=== PATIENT | female | born 1955 | race Hispanic/Latino ===

== ENCOUNTER 2017-11-13 23:00 | Inpatient (IN) | payer BC ==
[2017-11-08 13:39] VITALS: BMI 28.7
[2017-11-14] MEDS: Lactated Ringer's 1,000 ML IV SCH ×2 (00:15→14:02)
[2017-11-14] MEDS: Dexamethasone 4 mg/1 ml IVP SCH ×2 (01:28→06:19)
[2017-11-14] MEDS: Levalbuterol 0.63 MG/3 ML Inhal Soln UD IH SCH ×5 (01:36→20:14)
[2017-11-14] MEDS: Pantoprazole 40 mg EC Tab PO SCH (06:20)
[2017-11-14] MEDS: Levothyroxine 100 MCG TAB PO SCH (06:20)
[2017-11-14 06:44] LABS: GRAN # 5.52 (1.4-6.5); GRAN % 85.3 % (50.0-68.0); HEMOGLOBIN 10.5 g/dL (12.0-16.0); LYMPH # 0.5 (1.2-3.4); LYMPH % 7.3 % (22.0-35.0); MEAN CELL VOLUME 98.8 fl (80.0-105.0); MEAN CORPUSCULAR HEMOGLOBIN 32.1 pg (25.0-35.0); MEAN CORPUSCULAR HGB CONC 32.5 g/dl (31.0-37.0); MEAN PLATELET VOLUME 8.8 fl (7.0-11.0); MONO # 0.5 (0.1-0.6); MONO % 7.4 % (1.0-6.0); RBC 3.27 10^6/uL (3.5-6.1); RED CELL DISTRIBUTION WIDTH 13.3 % (11.5-14.5); WHITE BLOOD COUNT 6.5 10^3/ul (4.5-11.0)
[2017-11-14 07:11] LABS: ALB/GLOB RATIO 1.4 (1.1-1.8); ALBUMIN 3.6 g/dL (3.0-4.8); ALT/SGPT 19 U/L (7-56); AST/SGOT 27 U/L (14-36); BLOOD UREA NITROGEN 23 mg/dL (7-21); GFR NON-AFRICAN AMERICAN > 60
[2017-11-14 07:12] LABS: BILIRUBIN,DIRECT 0.1 mg/dL (0.0-0.4)
--- NOTE | 2017-11-14 09:19 | CP.PCM.PN ---
Subjective - Date & Time of Evaluation Date of Evaluation: 11/14/17 Time of Evaluation: 09:30 - Subjective Subjective: Ms Claudio has metastatic cancer with brain metastases. She is currently on whole brain radiation therapy. She is currently in our department today for whole brain treatment. Objective - Vital Signs/Intake and Output Vital Signs (last 24 hours): Temp Pulse Resp BP Pulse Ox 98.7 F 70 18 143/85 11/14/17 02:08 11/14/17 02:08 11/14/17 02:08 11/14/17 02:08 - Medications Medications: Current Medications Acetaminophen (Tylenol 325mg Tab) 650 mg PO Q6H PRN PRN Reason: temp >=99.5 Acetaminophen (Tylenol 650 Mg Supp) 650 mg RC Q6H PRN PRN Reason: Fever >99.5 F Amiodarone HCl (Cordarone) 200 mg PO DAILY [facility]; Protocol Atorvastatin Calcium (Lipitor) 40 mg PO DIN [facility]; Protocol Benzonatate (Tessalon Perles) 200 mg PO TID [facility]; Protocol Cholecalciferol (Vitamin D) 2,000 intlu PO DAILY [facility]; Protocol Clonazepam (Klonopin) 0.5 mg PO DAILY PRN; Protocol PRN Reason: Anxiety Dexamethasone (Decadron Inj) 4 mg IVP Q6 [facility]; Protocol Stop: 11/15/17 06:01 Last Admin: 11/14/17 06:19 Dose: 4 mg Dexamethasone (Decadron Inj) 2 mg IVP Q6 [facility]; Protocol Stop: 11/17/17 12:01 Digoxin (Digoxin) 0.125 mg PO 1400 [facility] Docusate Sodium (Colace) 100 mg PO TID [facility]; Protocol Ergocalciferol (Drisdol 50,000 Intl Units Cap) 1 cap PO Q7D [facility]; Protocol Escitalopram Oxalate (Lexapro) 10 mg PO DAILY [facility]; Protocol Lactated Ringer's (Lactated Ringer's) 1,000 mls @ 75 mls/hr IV .[id number] [facility] Last Admin: 11/14/17 00:15 Dose: 75 mls/hr Levalbuterol HCl (Xopenex) 0.63 mg IH [id number] [facility]; Protocol Last Admin: 11/14/17 08:02 Dose: Not Given Levothyroxine Sodium (Synthroid) 100 mcg PO 0600 [facility]; Protocol Last Admin: 11/14/17 06:20 Dose: 100 mcg Metoprolol Succinate (Toprol Xl) 100 mg PO DAILY [facility]; Protocol Ondansetron HCl (Zofran Inj) 4 mg IVP Q4H PRN; Protocol PRN Reason: Nausea/Vomiting Pantoprazole Sodium (Protonix Ec Tab) 40 mg PO 0600 [facility]; Protocol Last Admin: 11/14/17 06:20 Dose: 40 mg Polyethylene Glycol (Miralax) 17 gm PO BID [facility]; Protocol Tiotropium [place] (Spiriva) 18 mcg IH DAILY [facility]; Protocol - Labs Labs: 11/14/17 06:39 11/14/17 06:39
[2017-11-14] MEDS ORDERED: Metoprolol Succinate 100 mg XL Tab PO SCH (10:00)
[2017-11-14] MEDS: Digoxin 125 mcg (0.125 mg) Tab PO SCH (14:00)
[2017-11-14] MEDS: POLYETHYLENE GLYCOL 3350 17 GM/Dose PACKET PO SCH ×2 (17:07→17:12)
--- NOTE | 2017-11-14 18:50 | CON ---
DATE: 11/14/2017 NEUROLOGY CONSULTATION CHIEF COMPLAINT: Mets to the brain. HISTORY OF PRESENT ILLNESS: This is a 62-year-old woman with past medical history of stage IV small cell carcinoma, diagnosed in 2017, status post 2 rounds [address] Dr[address] Christie, hypothyroidism, former tobacco use, chronic upper extremity tremor, atrial fibrillation, on Xarelto who presented to the hospital initially on medical side status post fall and found to have multiple metastatic enhancing brain lesions, largest one in the right frontal lobe measuring 4.5 cm with some mild vasogenic edema, status post Decadron high dose, now is on tapering dose, is on board Radiology Oncology for whole brain radiation for underlying metastatic cancer. 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 She is on Lexapro, it did help with her depression. She is on tapering dose of dexamethasone till now, where she is on 2 mg IV every 6, then off. PAST MEDICAL HISTORY: As above. SOCIAL HISTORY: Former smoker. No illicit drug use, smoking, or EtOH abuse. REVIEW OF SYSTEMS: Fourteen-point review of systems is negative except as per the HPI. FAMILY HISTORY: Noncontributory. ALLERGIES: NO KNOWN DRUG ALLERGIES. MEDICATIONS: Reviewed by nurses' reconciliation sheet. PHYSICAL EXAMINATION: VITAL SIGNS: Temperature 98.1, pulse rate 57, blood pressure 131/81, respiratory rate 20, oxygen saturation via nasal cannula. GENERAL: The patient is sitting up in bed, in no acute distress. HEENT: Atraumatic, normocephalic. PERRLA. Extraocular muscles intact. NECK: Supple. No JVD, no adenopathy noted. LUNGS: Clear to auscultation. No adventitious sounds. HEART: S1, S2. Normal rate and rhythm. No murmurs, rubs or gallops. ABDOMEN: Soft, nontender and nondistended. Bowel sounds are present. EXTREMITIES: No clubbing. No cyanosis. Peripheral pulses 2+ felt bilaterally. upper extremities. NEUROLOGIC: The patient is alert and oriented to person, place, month and year. Speech is fluent without any errors. Recall after 5 minutes is 0/3. Poor attention span. Slow thought process. Cranial nerves II through XII intact. Motor exam: Moves all extremities equally. Has essential-type tremor in terms of action tremor on left hand, worse than right. Sensory: Decreased light touch and pinprick up to the calves bilaterally. Decreased vibration of the toes. DTRs are 2+ throughout and 1 at both knees and ankles. Coordination: [id number] intact. No dysmetria noted. Gait is deferred for now. LABORATORY DATA: Sodium is 136, potassium 4.1, chloride 198, carbon dioxide of 30, BUN of 23, creatinine 0.8, random glucose of 99. ASSESSMENT AND PLAN: This is a 62-year-old woman with past medical history of stage IV small cell carcinoma diagnosed in 2017, status post 2 rounds [address] Christie, hypothyroidism, former tobacco user, chronic upper extremity tremor, atrial fibrillation, on Xarelto, who presented to the hospital with status post fall, found to have multiple metastatic brain lesions and is undergoing whole brain radiation therapy, status post IV Decadron for vasogenic edema, on a tapering dose IV Decadron 2 mg every 6 and will be off, has also poor balance and deconditioned for underlying cancer related and chemotherapy related peripheral neuropathy, which can causes her paresthesias in the extremities and poor balance. Her tremors are secondary to metastatic lesions in the brain and she is mildly depressed at this time. 1. Continue rehabilitation at for physical and occupational therapy and reconditioning. 2. Tapering dose of steroids 2 mg IV every 6 Decadron and off. 3. Continue Lexapro 10 mg p.o. daily for depression. 4. Continue current present medical management. Thank you for this consult. Juan Ramon Reyes MD
[2017-11-15] MEDS: Dexamethasone 4 mg/1 ml IVP SCH ×5 (00:09→23:16)
--- NOTE | 2017-11-15 02:49 | HP ---
HISTORY OF PRESENT ILLNESS: The patient is now admitted to Transitional Care Unit after the patient was treated on the acute site. The patient is seen lying in room 319. The patient's bed was initially assigned to 302, now she moved to 319. The patient is seen lying in the bed. Patient is alert, awake, responsive, in no distress. HISTORY OF PRESENT ILLNESS: The patient was seen in the emergency room in bed 3. Please refer to the detailed history and physical examination by the medical records library professor. The patient presented to the emergency room by [facility] [place]. The patient was found according to the triage note. The patient fell out of the bed and the patient complained of back pain. According to the ER physician evaluation, the patient was evaluated by ER staff. The patient states that she was feeling nervous and weak for the past 2 days. The patient was unable to stand up from a toilet seat today and was found on the floor by the son. There was no information about how long the patient was found on the floor. There is no information about whether the patient passed out or lost consciousness. According to the patient's son, the patient was also having episodic confusion. The patient kept calling the names of the people, which made no sense. The patient's vital signs, diagnostic data are reviewed. Please refer to the history and physical examination for further details. IMRESSION: 1. Questionable syncope versus drop attack versus fall, etiology undetermined. 2. History of lung carcinoma status post chemotherapy. 3. Multiple intracranial metastatic lesion with lesion in the right anterior frontal lobe with a focal hemorrhagic area. 4. History of paroxysmal atrial fibrillation. 5. History of hypertension. 6. History of atrial fibrillation. 7. Hypothyroidism. 8. History of hypovitaminosis D. 9. History of tremor. 10. History of dyslipidemia. 11. Normocytic anemia. 12. Xarelto-dependent atrial fibrillation. 13. History of right hydropneumothorax. 14. History of stage IV small cell lung carcinoma with postobstructive pneumonia and right upper lobe complete atelectasis. 15. History of paroxysmal atrial fibrillation. 16. Hyperlipidemia. 17. Pancytopenia. 18. Symptomatic right hydropneumothorax. 19. Mediastinal intrathoracic lymphadenopathy. 20. History of right malignant pleural effusion status post thoracentesis done in 2017. 21. Left upper chest Port-A-Cath placement. 22. History of hyperlipidemia, history of hypovitaminosis D, history of hypothyroidism, history of constipation. 23. Mediastinal lymphadenopathy with occlusion of the right mainstem bronchus. PLAN AT THIS TIME: The patient is seen in the emergency room. The patient has been ordered a stat MRI of the brain, chest x-ray, EKG. Lumbar spine, sacral spine x-rays ordered. At present, the patient will be admitted to telemetry with serial labs. Neurology, Neurosurgery and Hematology/Oncology and Radiation/Oncology consultation. The patient has been started on Colace 100 three times a day, Decadron 200 daily, IV Decadron 800 mg IV every 6, digoxin 0.125 daily, Drisdol 50,000 weekly, Klonopin 0.5 mg daily, Ringer's lactate 75 mL an hour, Lipitor 40 mg daily, MiraLax 17 g twice a day, Protonix 40 mg daily, Spiriva 18 mcg daily, Synthroid 100 mcg daily, Tessalon Perles 200 three times a day, Tylenol p.r.n. p.o. suppository, vitamin D3 2000 units daily, Xopenex 0.63 mg every 6 hours and Zofran 4 IV every 4 p.r.n. MRI of the brain pending. EKG ordered. Oxygen orders. Head of the bed 30 degrees, seizure precautions, neuro checks ordered. At present, in view of the patient's present condition and diagnosis and diagnostic test results, the patient prognosis is extremely guarded to poor. The patient's further management will be dependent upon the patient's clinical condition, hemodynamic status and as per the patient's response to therapeutic intervention and the patient's family was updated about the condition and diagnosis and need for hospitalization at length. All questions and concerned answered. PHYSICAL EXAMINATION: VITAL SIGNS: T-max 98.8; heart rate 50, 57, 70; blood pressure 151/75, 131/81, 143/85; respiration 20; O2 sat 93%-98%. HEENT: Head examination, normocephalic, atraumatic. HEENT examination shows positive alopecia. Pinkish pale conjunctivae. Anicteric sclerae. No oropharyngeal lesion. No neck rigidity. Dry oral mucosa. No oral thrush. CHEST: Kyphosis. Positive left upper chest Port-A-Cath. LUNGS: Examination shows positive rhonchi, right more than the left. CARDIOVASCULAR: Shows S1, S2, regular rhythm. Questionable soft systolic murmur left sternal border, right second intercostal space, left second intercostal space. ABDOMEN: Soft. Positive bowel sound. GENITALIA: Female. RECTAL: Examination is deferred. EXTREMITIES: Shows no pitting edema, no calf tenderness, no Homans' sign. NEUROLOGICALLY: The patient is alert, awake, responsive, is able to move upper and lower extremities without assistance. Gait examination is not tested. MUSCULOSKELETAL: Examination shows a body mass index of 29. DIAGNOSTICS: CBC; this is from 11/14, WBC 6.5, hemoglobin/hematocrit 10.5/32.3 platelets 236. Granulocytes 85. Sodium 136, potassium 4.1, chloride 98, CO2 of 20, anion gap 12, BUN 23, creatinine 0.8, GFR greater than 60, glucose 95, calcium 9, magnesium 2.1. LFTs are normal. ADMISSION IMPRESSION: 1. Deconditioning. 2. Gait dysfunction. 3. Stage IV small cell carcinoma of the lung with brain metastasis and mediastinal metastasis. 4. Encephalopathy with episodic confusion secondary to brain metastasis. 5. Hypertension. 6. Bradyarrhythmia and bradycardia. 7. Hypokalemia. 8. Decadron induced hyperglycemia. 9. Normocytic anemia. 10. Leukocytosis. 11. Xarelto-dependent atrial fibrillation. 12. Large right frontal hemorrhagic metastatic lesion. 13. Multiple ring-enhancing metastatic lesion throughout the brain including the right frontal lobe with surrounding edema and mass effect with compression of the right frontal horn and small amount of midline shift anteriorly with multiple ring-enhancing metastatic lesion in the right temporal lobe, right cerebellar hemisphere, right anterior frontal lobe and the right frontal convexity and left frontal white matter. 14. Mild oropharyngeal dysphagia. 15. Constipation. 16. Hypovitaminosis D. 17. Depression. 18. Hypothyroidism. 19. Hyperlipidemia. 20. History of tremors. 21. Episodic hallucination and confusion secondary to brain metastasis. 22. Mild oropharyngeal dysphagia. 1. Stage IV small cell carcinoma of the lung with brain metastasis, mediastinal metastasis. 2. Encephalopathy. 3. Episodic confusion. 4. Hypertension. 5. Bradyarrhythmia. 6. Hypokalemia. 7. Decadron-induced hyperglycemia. 8. Normocytic anemia. 9. Leukocytosis. 10. Xarelto-dependent atrial fibrillation. 11. Large right frontal metastatic lesion with hemorrhagic lesion. 12. Large right frontal hemorrhagic metastases lesion. 13. Multiple ring-enhancing metastatic lesion throughout the brain including the right frontal lobe with surrounding edema and mass effect with compression of the right frontal horn and small amount of midline shift anteriorly. 14. Multiple ring-enhancing metastatic lesion in the right temporal lobe, right cerebellar hemisphere, right anterior frontal lobe and the right frontal convexity and the left frontal white matter. 15. Mild oropharyngeal dysphagia. 16. Constipation. 17. Hypovitaminosis D. 18. Depression. 19. Hyperlipidemia. 20. Hypothyroidism. 21. History of tremors. 22. History of Xarelto-dependent atrial fibrillation. 23. Deconditioning. 1. Stage IV small cell lung carcinoma with brain metastasis, mediastinal metastasis and metastasis. 2. Encephalopathy. 3. Episodic confusion. 4. Hypertension. 6. Hypoxemia. 7. Atrial fibrillation. 8. Steroid-induced leukocytosis. 9 Normocytic anemia. 10. Hypokalemia. 11. Mild prerenal kidney injury. 12. Deconditioning. 13. Tremors. 14. Depression. 15. Stage IV small cell lung carcinoma, status post chemotherapy. 16. Hypothyroidism. 18. Former nicotine dependence. 19. Status post fall. 20. 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 21. Tremor secondary to metastatic brain lesion. 22. Depression. 23. Oropharyngeal dysphagia with [id number] risk for aspiration. 24. Episodic hallucination and confusion. 25. Constipation. 26. Atrial fibrillation. 27. Hypovitaminosis D. 28. Hyperlipidemia. 1. Stage IV small-cell lung carcinoma with brain metastasis. 2. Hypoxemia. 3. Hypertension. 4. Paroxysmal atrial fibrillation. 5. Leukocytosis with granulocytosis. 6. Anemia. 7. Xarelto-dependent atrial fibrillation. 8. Prerenal kidney injury. 9. Mild oropharyngeal dysphagia with low to moderate risk for aspiration due to oral residue with solids and globus sensation and multiple swallows. 10. Depression. 11. Constipation. 12. Hypovitaminosis D. 13. Anxiety. 14. Hyperlipidemia. 15. History of nicotine dependence. 16. Hypothyroidism. 1. Large right frontal lobe mass with small amount of hemorrhage along the inferior border with multiple ring-enhancing metastatic lesion throughout the brain parenchyma with largest lesion in the right frontal lobe with surrounding edema and mass effect with compression of the right frontal horn and small midline shift anteriorly. 2. Right middle lobe, right lower lobe soft tissue mass surrounding the right bronchus intermedius and right lower lobe bronchus with additional right lower lobe mass with increasing size. 3. Right lung apex cystic formation with emphysema. 4. Left lower lobe focal opacity with left lower lobe atelectasis and elevated left hemidiaphragm. 5. Cardiomegaly. 6. Increasing mediastinal lymphadenopathy with increasing subcarinal lymphadenopathy. 7. Increasing right mid and upper mediastinal lymphadenopathy. 8. Possible hepatic metastasis. 9. Constipation with fecal stasis. 10. Colonic diverticulosis. 11. Increasing right middle lobe, right lower lobe soft tissue mass with right lower lobe soft tissue mass increasing in size. 12. Worsening mediastinal and right lower lobe lymphadenopathy. 13. Stage IV small cell lung carcinoma with metastasis, presently on whole brain radiation. 14. Xarelto-dependent atrial fibrillation. 15. Multiple brain metastases with vasogenic edema. 16. Chronic anemia of malignancy. 17. Steroid-induced leukocytosis. 18. Stage IV small cell lung carcinoma with brain metastasis and lung, liver, and mediastinal metastases. 19. History of hypothyroidism. 20. History of nicotine dependence. 21. Chemotherapy versus malignancy related peripheral neuropathy with paresthesias of the extremities. 22. History of depression. 23. Depression. 1. Encephalopathy with episodic confusion. 2. Large right frontal lobe mass with small amount of hemorrhage along the inferior border. 3. Multiple ring-enhancing metastatic lesions throughout the brain parenchyma with largest lesion in the right frontal lobe with surrounding edema and mass effect with compression of the right frontal horn and small midline shift anteriorly. 4. Multiple ring-enhancing lesions seen in the right temporal lobe and right cerebral hemisphere and right anterior frontal lobe and right frontal lobe convexity with 2.5 cm lesion of the left frontal white matter. 5. Multiple -enhancing metastatic lesion with vasogenic edema. 6. 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 7. Questionable first coccygeal segment acute fracture. 8. Left sided Port-A-Cath placement. 9. Ectatic aorta with enlargement of the cardiomediastinal silhouette. 10. Degenerative joint disease of the spine with scoliosis. 11. Questionable abnormal EKG with questionable anterior ischemia. 12. Stage IV metastatic lung carcinoma to the brain. 13. Deconditioning. 14. Normocytic anemia. 15. History of hypothyroidism. 16. Gait dysfunction. 17. History of stage IV small cell lung carcinoma. 1. Questionable syncope versus drop attack versus fall, etiology undetermined. 2. History of lung carcinoma status post chemotherapy. 3. Multiple intracranial metastatic lesion with lesion in the right anterior frontal lobe with a focal hemorrhagic area. 4. History of paroxysmal atrial fibrillation. 5. History of hypertension. 6. History of atrial fibrillation. 7. Hypothyroidism. 8. History of hypovitaminosis D. 9. History of tremor. 10. History of dyslipidemia. 11. Normocytic anemia. 12. Xarelto-dependent atrial fibrillation. 13. History of right hydropneumothorax. 14. History of stage IV small cell lung carcinoma with postobstructive pneumonia and right upper lobe complete atelectasis. 15. History of paroxysmal atrial fibrillation. 16. Hyperlipidemia. 17. Pancytopenia. 18. Symptomatic right hydropneumothorax. 19. Mediastinal intrathoracic lymphadenopathy. 20. History of right malignant pleural effusion status post thoracentesis done in 2017. 21. Left upper chest Port-A-Cath placement. 22. History of hyperlipidemia, history of hypovitaminosis D, history of hypothyroidism, history of constipation. 23. Mediastinal lymphadenopathy with occlusion of the right mainstem bronchus. PLAN: At this time, the patient is admitted to Transitional Care Unit. The patient will be undergoing daily physical therapy, occupational therapy, ambulation therapy, gait training. The patient's consultation; Hematology/Oncology, Neurology and Radiation Oncology. The patient will also continue on radiation treatment as ordered by the Radiation Oncology group. The patient's current medications, Colace 100 three times a day, amiodarone 200 mg daily to be held for heart rate less than equal to 60 per minute, Decadron 4 mg IV every 6 hours till 11/15, then Decadron 2 mg IV every 6 hours from 11/15/2017 to 11/17/2017, digoxin 0.125 daily, Drisdol 50,000 units weekly, Klonopin 0.5 mg daily p.r.n., Lexapro 10 mg daily, Lipitor 40 mg daily, MiraLax 17 g twice a day, Protonix 40 mg daily, Spiriva 18 mcg daily, Synthroid 100 mcg daily, Tessalon Perles 200 three times a day, Toprol XL 100 mg daily, Tylenol 650 p.o. suppository every 6 p.r.n., vitamin D3 2000 [employer] Unit daily, Xopenex nebulizer 0.63 mg every 6 hours p.r.n., Zofran 4 mg IV every 4 p.r.n., incentive spirometry, oxygen 2 liters. ROEL stockings, SCDs, physical therapy, occupational therapy, ambulation therapy all ordered for the patient. The patient's overall prognosis is guarded. The patient is aware. The patient has been ordered out of bed to chair. ROEL stockings, SCDs all ordered. Daily weights ordered. Occupational therapy, physical therapy, speech therapy, swallow evaluation all ordered. The patient will continue on the Transitional Care Unit stay till approved. The patient will be followed by above subspecialty. Dictated and electronically signed, not read. Loki Keyes MD MTDD
[2017-11-15] MEDS: Levalbuterol 0.63 MG/3 ML Inhal Soln UD IH SCH ×4 (03:00→20:25)
[2017-11-15] MEDS: Pantoprazole 40 mg EC Tab PO SCH (06:31)
[2017-11-15] MEDS: Levothyroxine 100 MCG TAB PO SCH (06:31)
[2017-11-15] MEDS: Cholecalciferol 1,000 INTLU TAB PO SCH (10:33)
[2017-11-15] MEDS: Tiotropium 18 mcg Cap For Inhalation IH SCH (10:36)
[2017-11-15] MEDS: POLYETHYLENE GLYCOL 3350 17 GM/Dose PACKET PO SCH ×2 (10:36→17:18)
[2017-11-15] MEDS: Ergocalciferol 50,000 Intl Units Cap PO SCH (10:37)
--- NOTE | 2017-11-15 11:23 | CP.PCM.CON ---
History of Present Illness - History of Present Illness History of Present Illness: 62 year old female with a history of afib on anticoagulation, tremor, stage IV small cell lung cancer dx 02/2016, admitted s/p fall, found to have diffuse brain metastasis on whole brain radiotherapy, currently in TCU for rehab. She has been receiving whole brain radiotherapy with Dr. Matias and on steroids with with improvement in her symptoms. Imaging done does she progressive disease in the chest which is likely causing some dysphagia symptoms. She has done well overall. She did experience a thoracic recurrence of her cancer which required retreatment with carboplatin and etoposide that was completed in 08/2017. Past medical history: afib on anticoagulation, tremor, stage IV small cell lung cancer Past surgical history: Portacath Family history: Denies hematologic and oncologic problems Social history: Former smoker Allergies: NKA Review of systems: All remaining review of systems including HEENT, cardiovascu lar, respiratory, gastrointestinal, genitourinary, musculoskeletal, dermatologic, neurologic, and psychiatric are negative unless mentioned in the HPI. Past Patient History - Infectious Disease Hx of Infectious Diseases: None - Past Medical History & Family History Past Medical History?: Yes - Past Social History Smoking Status: Former Smoker - CARDIAC Hx Hypertension: Yes - PULMONARY Hx Chronic Obstructive Pulmonary Disease (COPD): Yes - NEUROLOGICAL Hx Neurological Disorder: No - HEENT Hx HEENT Problems: Yes (eyeglasses) - RENAL Hx Chronic Kidney Disease: No - ENDOCRINE/METABOLIC Hx Hypothyroidism: Yes - HEMATOLOGICAL/ONCOLOGICAL Hx Cancer: Yes (brain lesions) - INTEGUMENTARY Other/Comment: right mid back thoracenthesis dressing dry and intact - MUSCULOSKELETAL/RHEUMATOLOGICAL Hx Falls: Yes - GASTROINTESTINAL Hx Gastrointestinal Disorders: No - GENITOURINARY/GYNECOLOGICAL Hx Reproductive Disorders: No - PSYCHIATRIC Hx Depression: No Hx Emotional Abuse: No Hx Physical Abuse: No Hx Substance Use: No - SURGICAL HISTORY Other/Comment: Throat and Lung Bx. Right Chest Wall Port placement - ANESTHESIA Hx Anesthesia Reactions: No Hx Malignant Hyperthermia: No Meds Allergies/Adverse Reactions: Allergies Allergy/AdvReac Type Severity Reaction Status Date / Time No Known Allergies Allergy Verified 04/01/16 11:52 - Medications Medications: Current Medications Acetaminophen (Tylenol 325mg Tab) 650 mg PO Q6H PRN PRN Reason: temp >=99.5 Acetaminophen (Tylenol 650 Mg Supp) 650 mg RC Q6H PRN PRN Reason: Fever >99.5 F Amiodarone HCl (Cordarone) 200 mg PO DAILY JEROME; Protocol Atorvastatin Calcium (Lipitor) 40 mg PO DIN JEROME; Protocol Benzonatate (Tessalon Perles) 200 mg PO TID JEROME; Protocol Last Admin: 11/15/17 10:34 Dose: 200 mg Cholecalciferol (Vitamin D) 2,000 intlu PO DAILY JEROME; Protocol Last Admin: 11/15/17 10:33 Dose: 2,000 intlu Clonazepam (Klonopin) 0.5 mg PO DAILY PRN; Protocol PRN Reason: Anxiety Dexamethasone (Decadron Inj) 2 mg IVP Q6 JEROME; Protocol Stop: 11/17/17 12:01 Digoxin (Digoxin) 0.125 mg PO 1400 JEROME Last Admin: 11/14/17 14:00 Dose: 0.125 mg Docusate Sodium (Colace) 100 mg PO TID JEROME; Protocol Last Admin: 11/15/17 10:31 Dose: 100 mg Ergocalciferol (Drisdol 50,000 Intl Units Cap) 1 cap PO Q7D JEROME; Protocol Last Admin: 11/15/17 10:37 Dose: 1 cap Escitalopram Oxalate (Lexapro) 10 mg PO DAILY JEROME; Protocol Last Admin: 11/15/17 10:37 Dose: 10 mg Levalbuterol HCl (Xopenex) 0.63 mg IH [id number] JEROME; Protocol Last Admin: 11/15/17 07:05 Dose: 0.63 mg Levothyroxine Sodium (Synthroid) 100 mcg PO 0600 JEROME; Protocol Last Admin: 11/15/17 06:31 Dose: 100 mcg Metoprolol Succinate (Toprol Xl) 100 mg PO DAILY JEROME; Protocol Last Admin: 11/15/17 10:35 Dose: Not Given Ondansetron HCl (Zofran Inj) 4 mg IVP Q4H PRN; Protocol PRN Reason: Nausea/Vomiting Pantoprazole Sodium (Protonix Ec Tab) 40 mg PO 0600 JEROME; Protocol Last Admin: 11/15/17 06:31 Dose: 40 mg Polyethylene Glycol (Miralax) 17 gm PO BID JEROME; Protocol Last Admin: 11/15/17 10:36 Dose: 17 gm Tiotropium [place] (Spiriva) 18 mcg IH DAILY JEROME; Protocol Last Admin: 11/15/17 10:36 Dose: 18 mcg Physical Exam - Head Exam Head Exam: ATRAUMATIC - Eye Exam Eye Exam: Normal appearance - ENT Exam ENT Exam: Mucous Membranes Dry - Respiratory Exam Respiratory Exam: NORMAL BREATHING PATTERN - Cardiovascular Exam Cardiovascular Exam: +S1, +S2 - GI/Abdominal Exam GI & Abdominal Exam: Normal Bowel Sounds Results - Vital Signs Recent Vital Signs: Last Vital Signs Temp 98.8 F 11/14/17 16:00 Pulse 54 L 11/15/17 10:35 Resp 18 11/14/17 16:00 BP 115/78 11/15/17 10:35 Pulse Ox 93 L 11/14/17 16:00 - Labs Result Diagrams: 11/14/17 06:39 11/14/17 06:39 Labs: Laboratory Results - last 24 hr 11/14/17 11/14/17 11/15/17 16:55 21:14 05:15 POC Glucose (mg/dL) 95 100 107 Assessment & Plan (1) Brain metastases Assessment and Plan: secondary to small cell lung cancer on whole brain radiotherapy steroids doing well Status: Acute (2) Anemia Assessment and Plan: chronic disease from malignancy Status: Acute (3) Small cell lung cancer Assessment and Plan: stage IV brain mets on radiation progressive disease in the chest outpatient chemotherapy Thank you for this interesting consult. Status: Acute
[2017-11-15] MEDS: Digoxin 125 mcg (0.125 mg) Tab PO SCH (14:23)
[2017-11-15 14:32] VITALS: PULSE 60
--- NOTE | 2017-11-15 19:10 | PN ---
DATE: 11/15/2017 SUBJECTIVE: The patient was seen in the gym room of the third floor on the TCU. The patient is doing steady stationary bike and the patient doing walking with ambulatory and the walker. The patient is alert, awake, and responsive. Overnight nurse's notes were reviewed. No adverse events documented. The patient was found to be alert, awake, and oriented without any adverse events. PHYSICAL EXAMINATION: VITAL SIGNS: T-max 99; heart rate 58, 54. The patient has been having bradycardia with heart rate 54, in mid 50s. Blood pressure 126/74, respirations 20, and O2 sat 95%. GENERAL: The patient is seen sitting up in the stationary bike. HEENT: Head: Normocephalic, atraumatic. Positive alopecia noted. Pinkish conjunctivae. Anicteric sclerae. No oropharyngeal lesion. NECK: No neck rigidity. No oral thrush noted. CHEST: Kyphosis. LUNGS: Show positive rhonchi, right more than the left. CARDIOVASCULAR: S1 and S2, regular rhythm. Questionable soft systolic murmur in the left second intercostal space, left sternal border. ABDOMEN: Soft. Positive bowel sound. GENITALIA: Female. RECTAL: Deferred. EXTREMITIES: Show no pitting edema, no calf tenderness, no Homans sign. NEUROLOGIC: The patient is alert, awake, responsive, is able to move upper and lower extremity without assistance. Gait examination is as per the physical therapy. PSYCHIATRIC: Positive for anxiety and depression. The patient seen by speech therapist today. There were no signs of dysphasia noted. IMPRESSION: 1. Bradycardia. 2. Deconditioning. 3. Gait dysfunction. 4. Stage IV small cell lung carcinoma with multiple ring-enhancing brain metastases with vasogenic edema and mild midline shift. 5. Normocytic anemia. 6. Granulocytosis. 7. Steroid Decadron-induced hyperglycemia. 8. Prerenal kidney injury. 9. History of Xarelto-dependent atrial fibrillation. 10. Stage IV small cell lung carcinoma with mediastinal adenopathy and intrathoracic progressive disease. 11. History of hypothyroidism. 12. Status post chemotherapy. 13. Former tobacco user. 14. Chronic upper extremity tremors. 15. Possible depression. 16. Constipation. 17. Hypovitaminosis D. 18. History of nicotine dependence. 1. Deconditioning. 2. Gait dysfunction. 3. Stage IV small cell carcinoma of the lung with brain metastasis and mediastinal metastasis. 4. Encephalopathy with episodic confusion secondary to brain metastasis. 5. Hypertension. 6. Bradyarrhythmia and bradycardia. 7. Hypokalemia. 8. Decadron induced hyperglycemia. 9. Normocytic anemia. 10. Leukocytosis. 11. Xarelto-dependent atrial fibrillation. 12. Large right frontal hemorrhagic metastatic lesion. 13. Multiple ring-enhancing metastatic lesion throughout the brain including the right frontal lobe with surrounding edema and mass effect with compression of the right frontal horn and small amount of midline shift anteriorly with multiple ring-enhancing metastatic lesion in the right temporal lobe, right cerebellar hemisphere, right anterior frontal lobe and the right frontal convexity and left frontal white matter. 14. Mild oropharyngeal dysphagia. 15. Constipation. 16. Hypovitaminosis D. 17. Depression. 18. Hypothyroidism. 19. Hyperlipidemia. 20. History of tremors. 21. Episodic hallucination and confusion secondary to brain metastasis. 22. Mild oropharyngeal dysphagia. 1. Stage IV small cell carcinoma of the lung with brain metastasis, mediastinal metastasis. 2. Encephalopathy. 3. Episodic confusion. 4. Hypertension. 5. Bradyarrhythmia. 6. Hypokalemia. 7. Decadron-induced hyperglycemia. 8. Normocytic anemia. 9. Leukocytosis. 10. Xarelto-dependent atrial fibrillation. 11. Large right frontal metastatic lesion with hemorrhagic lesion. 12. Large right frontal hemorrhagic metastases lesion. 13. Multiple ring-enhancing metastatic lesion throughout the brain including the right frontal lobe with surrounding edema and mass effect with compression of the right frontal horn and small amount of midline shift anteriorly. 14. Multiple ring-enhancing metastatic lesion in the right temporal lobe, right cerebellar hemisphere, right anterior frontal lobe and the right frontal convexity and the left frontal white matter. 15. Mild oropharyngeal dysphagia. 16. Constipation. 17. Hypovitaminosis D. 18. Depression. 19. Hyperlipidemia. 20. Hypothyroidism. 21. History of tremors. 22. History of Xarelto-dependent atrial fibrillation. 23. Deconditioning. 1. Stage IV small cell lung carcinoma with brain metastasis, mediastinal metastasis and metastasis. 2. Encephalopathy. 3. Episodic confusion. 4. Hypertension. 6. Hypoxemia. 7. Atrial fibrillation. 8. Steroid-induced leukocytosis. 9 Normocytic anemia. 10. Hypokalemia. 11. Mild prerenal kidney injury. 12. Deconditioning. 13. Tremors. 14. Depression. 15. Stage IV small cell lung carcinoma, status post chemotherapy. 16. Hypothyroidism. 18. Former nicotine dependence. 19. Status post fall. 20. 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 21. Tremor secondary to metastatic brain lesion. 22. Depression. 23. Oropharyngeal dysphagia with [id number] risk for aspiration. 24. Episodic hallucination and confusion. 25. Constipation. 26. Atrial fibrillation. 27. Hypovitaminosis D. 28. Hyperlipidemia. 1. Stage IV small-cell lung carcinoma with brain metastasis. 2. Hypoxemia. 3. Hypertension. 4. Paroxysmal atrial fibrillation. 5. Leukocytosis with granulocytosis. 6. Anemia. 7. Xarelto-dependent atrial fibrillation. 8. Prerenal kidney injury. 9. Mild oropharyngeal dysphagia with low to moderate risk for aspiration due to oral residue with solids and globus sensation and multiple swallows. 10. Depression. 11. Constipation. 12. Hypovitaminosis D. 13. Anxiety. 14. Hyperlipidemia. 15. History of nicotine dependence. 16. Hypothyroidism. 1. Large right frontal lobe mass with small amount of hemorrhage along the inferior border with multiple ring-enhancing metastatic lesion throughout the brain parenchyma with largest lesion in the right frontal lobe with surrounding edema and mass effect with compression of the right frontal horn and small midline shift anteriorly. 2. Right middle lobe, right lower lobe soft tissue mass surrounding the right bronchus intermedius and right lower lobe bronchus with additional right lower lobe mass with increasing size. 3. Right lung apex cystic formation with emphysema. 4. Left lower lobe focal opacity with left lower lobe atelectasis and elevated left hemidiaphragm. 5. Cardiomegaly. 6. Increasing mediastinal lymphadenopathy with increasing subcarinal lymphadenopathy. 7. Increasing right mid and upper mediastinal lymphadenopathy. 8. Possible hepatic metastasis. 9. Constipation with fecal stasis. 10. Colonic diverticulosis. 11. Increasing right middle lobe, right lower lobe soft tissue mass with right lower lobe soft tissue mass increasing in size. 12. Worsening mediastinal and right lower lobe lymphadenopathy. 13. Stage IV small cell lung carcinoma with metastasis, presently on whole brain radiation. 14. Xarelto-dependent atrial fibrillation. 15. Multiple brain metastases with vasogenic edema. 16. Chronic anemia of malignancy. 17. Steroid-induced leukocytosis. 18. Stage IV small cell lung carcinoma with brain metastasis and lung, liver, and mediastinal metastases. 19. History of hypothyroidism. 20. History of nicotine dependence. 21. Chemotherapy versus malignancy related peripheral neuropathy with paresthesias of the extremities. 22. History of depression. 23. Depression. 1. Encephalopathy with episodic confusion. 2. Large right frontal lobe mass with small amount of hemorrhage along the inferior border. 3. Multiple ring-enhancing metastatic lesions throughout the brain parenchyma with largest lesion in the right frontal lobe with surrounding edema and mass effect with compression of the right frontal horn and small midline shift anteriorly. 4. Multiple ring-enhancing lesions seen in the right temporal lobe and right cerebral hemisphere and right anterior frontal lobe and right frontal lobe convexity with 2.5 cm lesion of the left frontal white matter. 5. Multiple -enhancing metastatic lesion with vasogenic edema. 6. 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 7. Questionable first coccygeal segment acute fracture. 8. Left sided Port-A-Cath placement. 9. Ectatic aorta with enlargement of the cardiomediastinal silhouette. 10. Degenerative joint disease of the spine with scoliosis. 11. Questionable abnormal EKG with questionable anterior ischemia. 12. Stage IV metastatic lung carcinoma to the brain. 13. Deconditioning. 14. Normocytic anemia. 15. History of hypothyroidism. 16. Gait dysfunction. 17. History of stage IV small cell lung carcinoma. 1. Questionable syncope versus drop attack versus fall, etiology undetermined. 2. History of lung carcinoma status post chemotherapy. 3. Multiple intracranial metastatic lesion with lesion in the right anterior frontal lobe with a focal hemorrhagic area. 4. History of paroxysmal atrial fibrillation. 5. History of hypertension. 6. History of atrial fibrillation. 7. Hypothyroidism. 8. History of hypovitaminosis D. 9. History of tremor. 10. History of dyslipidemia. 11. Normocytic anemia. 12. Xarelto-dependent atrial fibrillation. 13. History of right hydropneumothorax. 14. History of stage IV small cell lung carcinoma with postobstructive pneumonia and right upper lobe complete atelectasis. 15. History of paroxysmal atrial fibrillation. 16. Hyperlipidemia. 17. Pancytopenia. 18. Symptomatic right hydropneumothorax. 19. Mediastinal intrathoracic lymphadenopathy. 20. History of right malignant pleural effusion status post thoracentesis done in 2017. 21. Left upper chest Port-A-Cath placement. 22. History of hyperlipidemia, history of hypovitaminosis D, history of hypothyroidism, history of constipation. 23. Mediastinal lymphadenopathy with occlusion of the right mainstem bronchus. PLAN: At this time, the patient's digoxin was discontinued. The patient's last echocardiogram was reviewed. Ejection fraction was normal. The patient has metoprolol, Toprol XL is decreased to 50 mg daily. The patient will be continued on Colace 100 three times a day, amiodarone 200 mg daily with holding parameters, Decadron 2 mg IV every 6 hours which has been started today, Drisdol 50,000 units weekly, Klonopin 0.5 mg daily p.r.n., Lexapro 10 mg daily, Lipitor 40 mg daily, MiraLax 17 g twice a day, Protonix 40 mg daily, Spiriva 18 mcg daily, Synthroid 100 mcg daily, Tessalon Perles 200 three times a day, Toprol XL decreased to 50 mg daily, Tylenol p.r.n., vitamin D3 of 2000 international units daily, Xopenex nebulizer 0.63 mg every 6 hours, Zofran 4 mg IV every 4 hours p.r.n., oxygen therapy, incentive spirometry. Neuro checks. Out of bed to chair. Seizure precautions. Physical therapy, occupational therapy to be continued while the patient is on transitional care unit. At present, the patient will be requested to be seen and evaluated for resumption of patient's Xarelto which the patient has been taking for atrial fibrillation. We will request reevaluation by Neurology and Hematology/Oncology regarding resumption of patient's Xarelto which the patient is supposed to be taken for atrial fibrillation. The patient is supposed to be taking Xarelto for atrial fibrillation, which needs to be resumed if cleared by Hematology/Oncology and Neurology. At present, the patient will be continued on above therapeutic intervention. Dictated and electronically signed, not read. Loki Keyes MD [email or web address]
[2017-11-16] MEDS: Levalbuterol 0.63 MG/3 ML Inhal Soln UD IH SCH ×4 (03:30→19:38)
[2017-11-16] MEDS: Dexamethasone 4 mg/1 ml IVP SCH ×3 (05:39→17:59)
[2017-11-16] MEDS: Pantoprazole 40 mg EC Tab PO SCH (05:40)
[2017-11-16] MEDS: Levothyroxine 100 MCG TAB PO SCH (05:40)
[2017-11-16] MEDS ORDERED: Magnesium Citrate Oral SOL (300 ml) PO ONE (08:40)
[2017-11-16] MEDS: POLYETHYLENE GLYCOL 3350 17 GM/Dose PACKET PO SCH ×2 (09:35→18:00)
[2017-11-16] MEDS: Tiotropium 18 mcg Cap For Inhalation IH SCH (09:36)
[2017-11-16] MEDS: Metoprolol Succinate 50 mg XL Tab PO SCH (09:36)
[2017-11-16] MEDS: Cholecalciferol 1,000 INTLU TAB PO SCH (09:37)
--- NOTE | 2017-11-16 11:41 | PN ---
DATE: 11/16/2017 SUBJECTIVE: The patient is seen in room 319, bed 1. The patient just returned from radiation therapy. The patient is alert, awake, responsive. The patient is seen sitting up in the chair. PHYSICAL EXAMINATION: VITAL SIGNS: T-max 98.5, heart rate 58, blood pressure 107/62, respiration 20, O2 sat 97%. HEENT: Head: Normocephalic, atraumatic. HEENT examination shows pinkish pale conjunctivae. Anicteric sclerae. Dry oral mucosa. No oral thrush noted. Positive kyphosis noted. CARDIOVASCULAR: S1 and S2, regular rhythm. Questionable soft systolic murmur, left sternal border, right second intercostal space, left second intercostal space. LUNGS: Shows occasional rhonchi, right more than the left. ABDOMEN: Soft. Positive bowel sound. GENITALIA: Female. RECTAL: Deferred. EXTREMITIES: Shows no pitting edema, no calf tenderness, No Homans' sign. MUSCULOSKELETAL: Shows a body mass index of 29.3. NEUROLOGIC: Cranial nerves II-XII grossly intact. VASCULAR: Palpable pulses of the upper and lower extremity. The patient is complaining of constipation for 3 days. IMPRESSION: 1. Deconditioning. 2. Gait dysfunction. 3. Upper extremity tremors. 4. 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 5. Constipation. 6. Depression. 7. Xarelto dependent atrial fibrillation. 8. Hypovitaminosis D. 9. Hyperlipidemia. 10. Hypothyroidism. 1. Bradycardia. 2. Deconditioning. 3. Gait dysfunction. 4. Stage IV small cell lung carcinoma with multiple ring-enhancing brain metastases with vasogenic edema and mild midline shift. 5. Normocytic anemia. 6. Granulocytosis. 7. Steroid Decadron-induced hyperglycemia. 8. Prerenal kidney injury. 9. History of Xarelto-dependent atrial fibrillation. 10. Stage IV small cell lung carcinoma with mediastinal adenopathy and intrathoracic progressive disease. 11. History of hypothyroidism. 12. Status post chemotherapy. 13. Former tobacco user. 14. Chronic upper extremity tremors. 15. Possible depression. 16. Constipation. 17. Hypovitaminosis D. 18. History of nicotine dependence. 1. Deconditioning. 2. Gait dysfunction. 3. Stage IV small cell carcinoma of the lung with brain metastasis and mediastinal metastasis. 4. Encephalopathy with episodic confusion secondary to brain metastasis. 5. Hypertension. 6. Bradyarrhythmia and bradycardia. 7. Hypokalemia. 8. Decadron induced hyperglycemia. 9. Normocytic anemia. 10. Leukocytosis. 11. Xarelto-dependent atrial fibrillation. 12. Large right frontal hemorrhagic metastatic lesion. 13. Multiple ring-enhancing metastatic lesion throughout the brain including the right frontal lobe with surrounding edema and mass effect with compression of the right frontal horn and small amount of midline shift anteriorly with multiple ring-enhancing metastatic lesion in the right temporal lobe, right cerebellar hemisphere, right anterior frontal lobe and the right frontal convexity and left frontal white matter. 14. Mild oropharyngeal dysphagia. 15. Constipation. 16. Hypovitaminosis D. 17. Depression. 18. Hypothyroidism. 19. Hyperlipidemia. 20. History of tremors. 21. Episodic hallucination and confusion secondary to brain metastasis. 22. Mild oropharyngeal dysphagia. 1. Stage IV small cell carcinoma of the lung with brain metastasis, mediastinal metastasis. 2. Encephalopathy. 3. Episodic confusion. 4. Hypertension. 5. Bradyarrhythmia. 6. Hypokalemia. 7. Decadron-induced hyperglycemia. 8. Normocytic anemia. 9. Leukocytosis. 10. Xarelto-dependent atrial fibrillation. 11. Large right frontal metastatic lesion with hemorrhagic lesion. 12. Large right frontal hemorrhagic metastases lesion. 13. Multiple ring-enhancing metastatic lesion throughout the brain including the right frontal lobe with surrounding edema and mass effect with compression of the right frontal horn and small amount of midline shift anteriorly. 14. Multiple ring-enhancing metastatic lesion in the right temporal lobe, right cerebellar hemisphere, right anterior frontal lobe and the right frontal convexity and the left frontal white matter. 15. Mild oropharyngeal dysphagia. 16. Constipation. 17. Hypovitaminosis D. 18. Depression. 19. Hyperlipidemia. 20. Hypothyroidism. 21. History of tremors. 22. History of Xarelto-dependent atrial fibrillation. 23. Deconditioning. 1. Stage IV small cell lung carcinoma with brain metastasis, mediastinal metastasis and metastasis. 2. Encephalopathy. 3. Episodic confusion. 4. Hypertension. 6. Hypoxemia. 7. Atrial fibrillation. 8. Steroid-induced leukocytosis. 9 Normocytic anemia. 10. Hypokalemia. 11. Mild prerenal kidney injury. 12. Deconditioning. 13. Tremors. 14. Depression. 15. Stage IV small cell lung carcinoma, status post chemotherapy. 16. Hypothyroidism. 18. Former nicotine dependence. 19. Status post fall. 20. 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 21. Tremor secondary to metastatic brain lesion. 22. Depression. 23. Oropharyngeal dysphagia with [id number] risk for aspiration. 24. Episodic hallucination and confusion. 25. Constipation. 26. Atrial fibrillation. 27. Hypovitaminosis D. 28. Hyperlipidemia. 1. Stage IV small-cell lung carcinoma with brain metastasis. 2. Hypoxemia. 3. Hypertension. 4. Paroxysmal atrial fibrillation. 5. Leukocytosis with granulocytosis. 6. Anemia. 7. Xarelto-dependent atrial fibrillation. 8. Prerenal kidney injury. 9. Mild oropharyngeal dysphagia with low to moderate risk for aspiration due to oral residue with solids and globus sensation and multiple swallows. 10. Depression. 11. Constipation. 12. Hypovitaminosis D. 13. Anxiety. 14. Hyperlipidemia. 15. History of nicotine dependence. 16. Hypothyroidism. 1. Large right frontal lobe mass with small amount of hemorrhage along the inferior border with multiple ring-enhancing metastatic lesion throughout the brain parenchyma with largest lesion in the right frontal lobe with surrounding edema and mass effect with compression of the right frontal horn and small midline shift anteriorly. 2. Right middle lobe, right lower lobe soft tissue mass surrounding the right bronchus intermedius and right lower lobe bronchus with additional right lower lobe mass with increasing size. 3. Right lung apex cystic formation with emphysema. 4. Left lower lobe focal opacity with left lower lobe atelectasis and elevated left hemidiaphragm. 5. Cardiomegaly. 6. Increasing mediastinal lymphadenopathy with increasing subcarinal lymphadenopathy. 7. Increasing right mid and upper mediastinal lymphadenopathy. 8. Possible hepatic metastasis. 9. Constipation with fecal stasis. 10. Colonic diverticulosis. 11. Increasing right middle lobe, right lower lobe soft tissue mass with right lower lobe soft tissue mass increasing in size. 12. Worsening mediastinal and right lower lobe lymphadenopathy. 13. Stage IV small cell lung carcinoma with metastasis, presently on whole brain radiation. 14. Xarelto-dependent atrial fibrillation. 15. Multiple brain metastases with vasogenic edema. 16. Chronic anemia of malignancy. 17. Steroid-induced leukocytosis. 18. Stage IV small cell lung carcinoma with brain metastasis and lung, liver, and mediastinal metastases. 19. History of hypothyroidism. 20. History of nicotine dependence. 21. Chemotherapy versus malignancy related peripheral neuropathy with paresthesias of the extremities. 22. History of depression. 23. Depression. 1. Encephalopathy with episodic confusion. 2. Large right frontal lobe mass with small amount of hemorrhage along the inferior border. 3. Multiple ring-enhancing metastatic lesions throughout the brain parenchyma with largest lesion in the right frontal lobe with surrounding edema and mass effect with compression of the right frontal horn and small midline shift anteriorly. 4. Multiple ring-enhancing lesions seen in the right temporal lobe and right cerebral hemisphere and right anterior frontal lobe and right frontal lobe convexity with 2.5 cm lesion of the left frontal white matter. 5. Multiple -enhancing metastatic lesion with vasogenic edema. 6. 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 7. Questionable first coccygeal segment acute fracture. 8. Left sided Port-A-Cath placement. 9. Ectatic aorta with enlargement of the cardiomediastinal silhouette. 10. Degenerative joint disease of the spine with scoliosis. 11. Questionable abnormal EKG with questionable anterior ischemia. 12. Stage IV metastatic lung carcinoma to the brain. 13. Deconditioning. 14. Normocytic anemia. 15. History of hypothyroidism. 16. Gait dysfunction. 17. History of stage IV small cell lung carcinoma. 1. Questionable syncope versus drop attack versus fall, etiology undetermined. 2. History of lung carcinoma status post chemotherapy. 3. Multiple intracranial metastatic lesion with lesion in the right anterior frontal lobe with a focal hemorrhagic area. 4. History of paroxysmal atrial fibrillation. 5. History of hypertension. 6. History of atrial fibrillation. 7. Hypothyroidism. 8. History of hypovitaminosis D. 9. History of tremor. 10. History of dyslipidemia. 11. Normocytic anemia. 12. Xarelto-dependent atrial fibrillation. 13. History of right hydropneumothorax. 14. History of stage IV small cell lung carcinoma with postobstructive pneumonia and right upper lobe complete atelectasis. 15. History of paroxysmal atrial fibrillation. 16. Hyperlipidemia. 17. Pancytopenia. 18. Symptomatic right hydropneumothorax. 19. Mediastinal intrathoracic lymphadenopathy. 20. History of right malignant pleural effusion status post thoracentesis done in 2017. 21. Left upper chest Port-A-Cath placement. 22. History of hyperlipidemia, history of hypovitaminosis D, history of hypothyroidism, history of constipation. 23. Mediastinal lymphadenopathy with occlusion of the right mainstem bronchus. PLAN AT THIS TIME: The patient's resumption of anticoagulation has been referred to Hematology, Oncology and Neurology for resumption of Xarelto for atrial fibrillation. The patient has been ordered following medications. The patient is given magnesium citrate 300 mg p.o. x1, Colace 100 three times a day, amiodarone 200 mg daily, Decadron 2 mg IV every 6 hours as ordered by Neurology, Drisdol 50,000 weekly, Klonopin 0.5 mg daily p.r.n., Lexapro 10 mg daily, Lipitor 40 mg daily, MiraLax 17 g twice a day, Protonix 40 mg daily, Spiriva 18 mcg daily, Synthroid 100 mcg daily, Tessalon Perles 200 three times a day, Toprol-XL 50 mg daily, Tylenol 650 every 6 p.r.n., vitamin D3 2000 [employer] Unit daily, Xopenex nebulizer 0.63 mg every 6 hours, Zofran 4 mg IV every 4 p.r.n., incentive spirometry, oxygen, neuro checks, seizure precaution, out of bed, SCDs, ROEL stocking, physical therapy, occupational therapy all ordered. The patient will continue on the Transitional Care Unit with continuation of the physical therapy, occupational therapy, ambulation therapy, gait training. Patient's case referred to [facility] for further extension of TCU stay if possible and if approved by the patient's insurance. Dictated and electronically signed, not read. Lkoi Keyes MD [facility]
[2017-11-17] MEDS: Levalbuterol 0.63 MG/3 ML Inhal Soln UD IH SCH ×4 (01:31→20:33)
[2017-11-17] MEDS: Dexamethasone 4 mg/1 ml IVP SCH ×3 (05:14→13:28)
[2017-11-17] MEDS: Pantoprazole 40 mg EC Tab PO SCH (05:14)
[2017-11-17] MEDS: Levothyroxine 100 MCG TAB PO SCH (05:14)
[2017-11-17] MEDS: POLYETHYLENE GLYCOL 3350 17 GM/Dose PACKET PO SCH ×2 (09:40→17:10)
[2017-11-17] MEDS: Tiotropium 18 mcg Cap For Inhalation IH SCH (09:40)
[2017-11-17] MEDS: Metoprolol Succinate 50 mg XL Tab PO SCH (09:41)
[2017-11-17] MEDS: Cholecalciferol 1,000 INTLU TAB PO SCH (09:42)
[2017-11-17 11:25] LABS: GRAN # 7.71 (1.4-6.5); GRAN % 86.2 % (50.0-68.0); HEMOGLOBIN 11.4 g/dL (12.0-16.0); LYMPH % 10.6 % (22.0-35.0); MEAN CELL VOLUME 98.6 fl (80.0-105.0); MEAN CORPUSCULAR HEMOGLOBIN 32.4 pg (25.0-35.0); MEAN CORPUSCULAR HGB CONC 32.9 g/dl (31.0-37.0); MEAN PLATELET VOLUME 8.6 fl (7.0-11.0); MONO # 0.3 (0.1-0.6); MONO % 3.2 % (1.0-6.0); RBC 3.52 10^6/uL (3.5-6.1); RED CELL DISTRIBUTION WIDTH 13.4 % (11.5-14.5)
[2017-11-17 11:45] LABS: ALB/GLOB RATIO 1.1 (1.1-1.8); ALBUMIN 2.7 g/dL (3.0-4.8); ALT/SGPT 31 U/L (7-56); AST/SGOT 16 U/L (14-36); BILIRUBIN,DIRECT 0.2 mg/dL (0.0-0.4); BLOOD UREA NITROGEN 21 mg/dL (7-21); CALCIUM 6.5 mg/dL (8.4-10.5); GFR NON-AFRICAN AMERICAN > 60
[2017-11-17] MEDS: Potassium Chloride 20 mEq ER Tab PO SCH ×2 (13:29→17:09)
[2017-11-17] MEDS: Calcium-Vit D 250 mg-125 Units Tab UD PO SCH (13:30)
--- NOTE | 2017-11-17 13:40 | PN ---
DATE: 11/17/2017 SUBJECTIVE: The patient is seen in room 319, bed 1. The patient was seen with the patient's nurse. According to the patient's nurse, the patient has been complaining of dysuria during urination. The patient also complains of burning urine. The patient is seen lying in the bed. The patient denies any fever or chills. PHYSICAL EXAMINATION: VITAL SIGNS: T-max 99; heart rate 61, 64, which has improved; blood pressure 122/76; respirations 20; O2 sat 94%. HEENT: Head: Normocephalic, atraumatic. Pinkish pale conjunctivae. Anicteric sclerae. Positive alopecia noted. No oral thrush noted. NECK: No neck rigidity. CHEST: Kyphosis. Positive rhonchi noted in the upper lung ellis, right more than the left. CARDIOVASCULAR: S1 and S2, regular rhythm. ABDOMEN: Soft. Positive bowel sound. No hepatosplenomegaly noted. No suprapubic tenderness noted. No costovertebral angle tenderness. GENITALIA: Female. RECTAL: Deferred. EXTREMITIES: Show no pitting edema, no calf tenderness, no Homans sign. NEUROLOGIC: The patient is alert, awake, responsive. Nurse's notes were reviewed from overnight. As mentioned, the patient's nurse's notes also report that the patient had foul urine. IMPRESSION: 1. Dysuria with frequency and foul urine, questionable etiology with possible urinary tract infection in an immunocompromised patient. 2. Deconditioning. 3. Gait dysfunction. 4. Status post bradycardia. 5. Hypoxemia. 6. 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 7. Normocytic anemia. 8. Upper extremity tremors. 9. Granulocytosis. 10. Status post fall. 11. Depression. 12. Anemia of chronic disease secondary to malignancy. 13. Urinary tract infection. 1. Deconditioning. 2. Gait dysfunction. 3. Upper extremity tremors. 4. 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 5. Constipation. 6. Depression. 7. Xarelto dependent atrial fibrillation. 8. Hypovitaminosis D. 9. Hyperlipidemia. 10. Hypothyroidism. 1. Bradycardia. 2. Deconditioning. 3. Gait dysfunction. 4. Stage IV small cell lung carcinoma with multiple ring-enhancing brain metastases with vasogenic edema and mild midline shift. 5. Normocytic anemia. 6. Granulocytosis. 7. Steroid Decadron-induced hyperglycemia. 8. Prerenal kidney injury. 9. History of Xarelto-dependent atrial fibrillation. 10. Stage IV small cell lung carcinoma with mediastinal adenopathy and intrathoracic progressive disease. 11. History of hypothyroidism. 12. Status post chemotherapy. 13. Former tobacco user. 14. Chronic upper extremity tremors. 15. Possible depression. 16. Constipation. 17. Hypovitaminosis D. 18. History of nicotine dependence. 1. Deconditioning. 2. Gait dysfunction. 3. Stage IV small cell carcinoma of the lung with brain metastasis and mediastinal metastasis. 4. Encephalopathy with episodic confusion secondary to brain metastasis. 5. Hypertension. 6. Bradyarrhythmia and bradycardia. 7. Hypokalemia. 8. Decadron induced hyperglycemia. 9. Normocytic anemia. 10. Leukocytosis. 11. Xarelto-dependent atrial fibrillation. 12. Large right frontal hemorrhagic metastatic lesion. 13. Multiple ring-enhancing metastatic lesion throughout the brain including the right frontal lobe with surrounding edema and mass effect with compression of the right frontal horn and small amount of midline shift anteriorly with multiple ring-enhancing metastatic lesion in the right temporal lobe, right cerebellar hemisphere, right anterior frontal lobe and the right frontal convexity and left frontal white matter. 14. Mild oropharyngeal dysphagia. 15. Constipation. 16. Hypovitaminosis D. 17. Depression. 18. Hypothyroidism. 19. Hyperlipidemia. 20. History of tremors. 21. Episodic hallucination and confusion secondary to brain metastasis. 22. Mild oropharyngeal dysphagia. 1. Stage IV small cell carcinoma of the lung with brain metastasis, mediastinal metastasis. 2. Encephalopathy. 3. Episodic confusion. 4. Hypertension. 5. Bradyarrhythmia. 6. Hypokalemia. 7. Decadron-induced hyperglycemia. 8. Normocytic anemia. 9. Leukocytosis. 10. Xarelto-dependent atrial fibrillation. 11. Large right frontal metastatic lesion with hemorrhagic lesion. 12. Large right frontal hemorrhagic metastases lesion. 13. Multiple ring-enhancing metastatic lesion throughout the brain including the right frontal lobe with surrounding edema and mass effect with compression of the right frontal horn and small amount of midline shift anteriorly. 14. Multiple ring-enhancing metastatic lesion in the right temporal lobe, right cerebellar hemisphere, right anterior frontal lobe and the right frontal convexity and the left frontal white matter. 15. Mild oropharyngeal dysphagia. 16. Constipation. 17. Hypovitaminosis D. 18. Depression. 19. Hyperlipidemia. 20. Hypothyroidism. 21. History of tremors. 22. History of Xarelto-dependent atrial fibrillation. 23. Deconditioning. 1. Stage IV small cell lung carcinoma with brain metastasis, mediastinal metastasis and metastasis. 2. Encephalopathy. 3. Episodic confusion. 4. Hypertension. 6. Hypoxemia. 7. Atrial fibrillation. 8. Steroid-induced leukocytosis. 9 Normocytic anemia. 10. Hypokalemia. 11. Mild prerenal kidney injury. 12. Deconditioning. 13. Tremors. 14. Depression. 15. Stage IV small cell lung carcinoma, status post chemotherapy. 16. Hypothyroidism. 18. Former nicotine dependence. 19. Status post fall. 20. 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 21. Tremor secondary to metastatic brain lesion. 22. Depression. 23. Oropharyngeal dysphagia with [id number] risk for aspiration. 24. Episodic hallucination and confusion. 25. Constipation. 26. Atrial fibrillation. 27. Hypovitaminosis D. 28. Hyperlipidemia. 1. Stage IV small-cell lung carcinoma with brain metastasis. 2. Hypoxemia. 3. Hypertension. 4. Paroxysmal atrial fibrillation. 5. Leukocytosis with granulocytosis. 6. Anemia. 7. Xarelto-dependent atrial fibrillation. 8. Prerenal kidney injury. 9. Mild oropharyngeal dysphagia with low to moderate risk for aspiration due to oral residue with solids and globus sensation and multiple swallows. 10. Depression. 11. Constipation. 12. Hypovitaminosis D. 13. Anxiety. 14. Hyperlipidemia. 15. History of nicotine dependence. 16. Hypothyroidism. 1. Large right frontal lobe mass with small amount of hemorrhage along the inferior border with multiple ring-enhancing metastatic lesion throughout the brain parenchyma with largest lesion in the right frontal lobe with surrounding edema and mass effect with compression of the right frontal horn and small midline shift anteriorly. 2. Right middle lobe, right lower lobe soft tissue mass surrounding the right bronchus intermedius and right lower lobe bronchus with additional right lower lobe mass with increasing size. 3. Right lung apex cystic formation with emphysema. 4. Left lower lobe focal opacity with left lower lobe atelectasis and elevated left hemidiaphragm. 5. Cardiomegaly. 6. Increasing mediastinal lymphadenopathy with increasing subcarinal lymphadenopathy. 7. Increasing right mid and upper mediastinal lymphadenopathy. 8. Possible hepatic metastasis. 9. Constipation with fecal stasis. 10. Colonic diverticulosis. 11. Increasing right middle lobe, right lower lobe soft tissue mass with right lower lobe soft tissue mass increasing in size. 12. Worsening mediastinal and right lower lobe lymphadenopathy. 13. Stage IV small cell lung carcinoma with metastasis, presently on whole brain radiation. 14. Xarelto-dependent atrial fibrillation. 15. Multiple brain metastases with vasogenic edema. 16. Chronic anemia of malignancy. 17. Steroid-induced leukocytosis. 18. Stage IV small cell lung carcinoma with brain metastasis and lung, liver, and mediastinal metastases. 19. History of hypothyroidism. 20. History of nicotine dependence. 21. Chemotherapy versus malignancy related peripheral neuropathy with paresthesias of the extremities. 22. History of depression. 23. Depression. 1. Encephalopathy with episodic confusion. 2. Large right frontal lobe mass with small amount of hemorrhage along the inferior border. 3. Multiple ring-enhancing metastatic lesions throughout the brain parenchyma with largest lesion in the right frontal lobe with surrounding edema and mass effect with compression of the right frontal horn and small midline shift anteriorly. 4. Multiple ring-enhancing lesions seen in the right temporal lobe and right cerebral hemisphere and right anterior frontal lobe and right frontal lobe convexity with 2.5 cm lesion of the left frontal white matter. 5. Multiple -enhancing metastatic lesion with vasogenic edema. 6. 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 7. Questionable first coccygeal segment acute fracture. 8. Left sided Port-A-Cath placement. 9. Ectatic aorta with enlargement of the cardiomediastinal silhouette. 10. Degenerative joint disease of the spine with scoliosis. 11. Questionable abnormal EKG with questionable anterior ischemia. 12. Stage IV metastatic lung carcinoma to the brain. 13. Deconditioning. 14. Normocytic anemia. 15. History of hypothyroidism. 16. Gait dysfunction. 17. History of stage IV small cell lung carcinoma. 1. Questionable syncope versus drop attack versus fall, etiology undetermined. 2. History of lung carcinoma status post chemotherapy. 3. Multiple intracranial metastatic lesion with lesion in the right anterior frontal lobe with a focal hemorrhagic area. 4. History of paroxysmal atrial fibrillation. 5. History of hypertension. 6. History of atrial fibrillation. 7. Hypothyroidism. 8. History of hypovitaminosis D. 9. History of tremor. 10. History of dyslipidemia. 11. Normocytic anemia. 12. Xarelto-dependent atrial fibrillation. 13. History of right hydropneumothorax. 14. History of stage IV small cell lung carcinoma with postobstructive pneumonia and right upper lobe complete atelectasis. 15. History of paroxysmal atrial fibrillation. 16. Hyperlipidemia. 17. Pancytopenia. 18. Symptomatic right hydropneumothorax. 19. Mediastinal intrathoracic lymphadenopathy. 20. History of right malignant pleural effusion status post thoracentesis done in 2017. 21. Left upper chest Port-A-Cath placement. 22. History of hyperlipidemia, history of hypovitaminosis D, history of hypothyroidism, history of constipation. 23. Mediastinal lymphadenopathy with occlusion of the right mainstem bronchus. PLAN: At this time, the patient has been ordered Cipro 250 twice a day. The patient is on Colace 100 three times a day, amiodarone 200 mg daily, Decadron 2 mg IV every 6 hours tapering doses, Drisdol 50,000 weekly, Klonopin 0.5 daily p.r.n., Lexapro 10 mg daily, Lipitor 40 mg daily, MiraLax 17 g twice a day, Protonix 40 mg daily, Pyridium 100 three times a day for 3 days ordered. The patient is on Spiriva 18 mcg daily, Synthroid 100 mcg daily, Tessalon Perles 200 three times a day, Toprol XL 50 mg daily, Tylenol 650 every 6 hours p.r.n., vitamin D3 2000 international units daily, Xopenex nebulizer 0.63 mg every 6 hours, Zofran 4 mg IV every 4 hours p.r.n. At present, the patient will be continued on the above therapeutic intervention with continuation of the transitional care unit stay with continuation of the daily physical therapy, gait training, occupational therapy, ambulation therapy. The patient's further management will be dependent upon the patient's clinical condition, the patient's hemodynamic status, diagnostic data, recommendation by all the physicians. Dictated and electronically signed, not read. Loki Keyes MD [facility] # [id number] JORY
--- NOTE | 2017-11-17 23:46 | CP.PCM.PN ---
Subjective - Date & Time of Evaluation Date of Evaluation: 11/16/17 Time of Evaluation: 13:00 - Subjective Subjective: No complaints. Objective - Vital Signs/Intake and Output Vital Signs (last 24 hours): Temp Pulse Resp BP Pulse Ox 98.2 F 67 19 160/90 H 96 11/17/17 15:57 11/17/17 16:45 11/17/17 15:57 11/17/17 15:57 11/17/17 16:45 Intake and Output: 11/17/17 11/18/17 18:59 06:59 Intake Total 420 Balance 420 - Medications Medications: Current Medications Acetaminophen (Tylenol 325mg Tab) 650 mg PO Q6H PRN PRN Reason: temp >=99.5 Acetaminophen (Tylenol 650 Mg Supp) 650 mg RC Q6H PRN PRN Reason: Fever >99.5 F Amiodarone HCl (Cordarone) 200 mg PO DAILY JEROME; Protocol Last Admin: 11/17/17 09:37 Dose: 200 mg Atorvastatin Calcium (Lipitor) 40 mg PO DIN JEROME; Protocol Last Admin: 11/17/17 17:09 Dose: 40 mg Benzonatate (Tessalon Perles) 200 mg PO TID JEROME; Protocol Last Admin: 11/17/17 17:10 Dose: 200 mg Calcium/Vitamin D (Oscal-D 250 Mg-125 Units Tab) 1 tab PO DAILY JEROME Stop: 11/19/17 10:01 Last Admin: 11/17/17 13:30 Dose: 1 tab Cholecalciferol (Vitamin D) 2,000 intlu PO DAILY JEROME; Protocol Last Admin: 11/17/17 09:42 Dose: 2,000 intlu Ciprofloxacin (Cipro) 250 mg PO Q12 JEROME; Protocol Stop: 11/18/17 10:01 Last Admin: 11/17/17 21:11 Dose: 250 mg Clonazepam (Klonopin) 0.5 mg PO DAILY PRN; Protocol PRN Reason: Anxiety Docusate Sodium (Colace) 100 mg PO TID JEROME; Protocol Last Admin: 11/17/17 17:09 Dose: 100 mg Ergocalciferol (Drisdol 50,000 Intl Units Cap) 1 cap PO Q7D JEROME; Protocol Last Admin: 11/15/17 10:37 Dose: 1 cap Escitalopram Oxalate (Lexapro) 10 mg PO DAILY JEROME; Protocol Last Admin: 11/17/17 09:40 Dose: 10 mg Levalbuterol HCl (Xopenex) 0.63 mg IH [id number] JEROME; Protocol Last Admin: 11/17/17 20:33 Dose: 0.63 mg Levothyroxine Sodium (Synthroid) 100 mcg PO 0600 JEROME; Protocol Last Admin: 11/17/17 05:14 Dose: 100 mcg Metoprolol Succinate (Toprol Xl) 50 mg PO DAILY JEROME; Protocol Last Admin: 11/17/17 09:41 Dose: 50 mg Ondansetron HCl (Zofran Inj) 4 mg IVP Q4H PRN; Protocol PRN Reason: Nausea/Vomiting Pantoprazole Sodium (Protonix Ec Tab) 40 mg PO 0600 JEROME; Protocol Last Admin: 11/17/17 05:14 Dose: 40 mg Phenazopyridine HCl (Pyridium) 100 mg PO PC [facility] Stop: 11/20/17 10:01 Last Admin: 11/17/17 17:10 Dose: 100 mg Polyethylene Glycol (Miralax) 17 gm PO BID JEROME; Protocol Last Admin: 11/17/17 17:10 Dose: 17 gm Tiotropium [place] (Spiriva) 18 mcg IH DAILY JEROME; Protocol Last Admin: 11/17/17 09:40 Dose: 18 mcg - Labs Labs: 11/17/17 11:20 11/17/17 11:20 - Head Exam Head Exam: ATRAUMATIC - Eye Exam Eye Exam: Normal appearance - ENT Exam ENT Exam: Mucous Membranes Dry - Respiratory Exam Respiratory Exam: NORMAL BREATHING PATTERN - Cardiovascular Exam Cardiovascular Exam: +S1, +S2 - GI/Abdominal Exam GI & Abdominal Exam: Normal Bowel Sounds Assessment and Plan (1) Brain metastases Assessment & Plan: secondary to small cell lung cancer on whole brain radiotherapy steroids doing well Status: Acute (2) Anemia Assessment & Plan: chronic disease from malignancy Status: Acute (3) Small cell lung cancer Assessment & Plan: brain mets on radiation progressive disease in the chest outpatient chemotherapy Status: Acute
[2017-11-18] MEDS: Levalbuterol 0.63 MG/3 ML Inhal Soln UD IH SCH ×4 (01:55→21:40)
[2017-11-18] MEDS: Levothyroxine 100 MCG TAB PO SCH (06:13)
[2017-11-18] MEDS: Pantoprazole 40 mg EC Tab PO SCH (06:13)
[2017-11-18 08:23] LABS: ALB/GLOB RATIO 1.4 (1.1-1.8); ALBUMIN 3.5 g/dL (3.0-4.8); ALT/SGPT 27 U/L (7-56); AST/SGOT 28 U/L (14-36); BLOOD UREA NITROGEN 28 mg/dL (7-21); CALCIUM 8.5 mg/dL (8.4-10.5); GFR NON-AFRICAN AMERICAN > 60
--- NOTE | 2017-11-18 09:19 | PN ---
DATE: 11/18/2017 SUBJECTIVE: The patient is seen lying in the bed in room 319, bed 1. Overnight nurse's notes were reviewed. PHYSICAL EXAMINATION: VITAL SIGNS: T-max 98.8; pulse 62, 67; blood pressure 122/76, 154/91; respirations 19; O2 sat 93-96%. HEENT: Head examination normocephalic, atraumatic. HEENT examination shows pinkish conjunctivae. Positive alopecia. No oropharyngeal lesion. No oral thrush. CHEST: Kyphosis. Positive upper chest Port-A-Cath. LUNGS: Shows occasional rhonchi, right posterior lung field. CARDIOVASCULAR: S1, S2, regular rhythm. Questionable soft systolic murmur, left sternal border, left second intercostal space. ABDOMEN: Nontender. No hepatosplenomegaly noted. No costovertebral angle tenderness. No suprapubic right or left lower quadrant tenderness noted. No rebound tenderness. GENITALIA: Female. RECTAL: Deferred. EXTREMITY: Shows no pitting edema, no calf tenderness, no Homans' sign. MUSCULOSKELETAL: Shows a body mass index of 29. PSYCHIATRIC: Positive for upper extremity tremors and depression. DIAGNOSTICS: On 11/18/2017, sodium 133, potassium has come up to 4.3, chloride 99, CO2 of 28, anion gap 10, BUN 28, creatinine 0.7, GFR greater than 60, glucose 87, calcium 8.5, phosphorus 3.1, magnesium 2. LFTs are normal. IMPRESSION AND PLAN: 1. Dysuria and frequency, etiology undetermined, questionable urinary tract infection. 2. Hypoxemia. 3. Normocytic anemia. 4. Granulocytosis. 5. Hypokalemia. 6. Mild prerenal kidney injury. 7. Hypoalbuminemia. 8. Mild protein malnutrition and mild hypoalbuminemia. 9. Deconditioning. 10. Gait dysfunction. 11. Episodic hallucination and confusion secondary to brain metastasis. 12. Mild oropharyngeal dysphagia (resolved). 13. Deconditioning. 14. Gait dysfunction. 15. Atrial fibrillation. 16. Hypovitaminosis D. 17. Anxiety. 18. Upper extremity tremors. 19. Depression. 20. Hyperlipidemia. 21. Constipation. 22. Hypothyroidism. 23. Bradycardia (resolved). 1. Dysuria with frequency and foul urine, questionable etiology with possible urinary tract infection in an immunocompromised patient. 2. Deconditioning. 3. Gait dysfunction. 4. Status post bradycardia. 5. Hypoxemia. 6. 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 7. Normocytic anemia. 8. Upper extremity tremors. 9. Granulocytosis. 10. Status post fall. 11. Depression. 12. Anemia of chronic disease secondary to malignancy. 13. Urinary tract infection. 1. Deconditioning. 2. Gait dysfunction. 3. Upper extremity tremors. 4. 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 5. Constipation. 6. Depression. 7. Xarelto dependent atrial fibrillation. 8. Hypovitaminosis D. 9. Hyperlipidemia. 10. Hypothyroidism. 1. Bradycardia. 2. Deconditioning. 3. Gait dysfunction. 4. Stage IV small cell lung carcinoma with multiple ring-enhancing brain metastases with vasogenic edema and mild midline shift. 5. Normocytic anemia. 6. Granulocytosis. 7. Steroid Decadron-induced hyperglycemia. 8. Prerenal kidney injury. 9. History of Xarelto-dependent atrial fibrillation. 10. Stage IV small cell lung carcinoma with mediastinal adenopathy and intrathoracic progressive disease. 11. History of hypothyroidism. 12. Status post chemotherapy. 13. Former tobacco user. 14. Chronic upper extremity tremors. 15. Possible depression. 16. Constipation. 17. Hypovitaminosis D. 18. History of nicotine dependence. 1. Deconditioning. 2. Gait dysfunction. 3. Stage IV small cell carcinoma of the lung with brain metastasis and mediastinal metastasis. 4. Encephalopathy with episodic confusion secondary to brain metastasis. 5. Hypertension. 6. Bradyarrhythmia and bradycardia. 7. Hypokalemia. 8. Decadron induced hyperglycemia. 9. Normocytic anemia. 10. Leukocytosis. 11. Xarelto-dependent atrial fibrillation. 12. Large right frontal hemorrhagic metastatic lesion. 13. Multiple ring-enhancing metastatic lesion throughout the brain including the right frontal lobe with surrounding edema and mass effect with compression of the right frontal horn and small amount of midline shift anteriorly with multiple ring-enhancing metastatic lesion in the right temporal lobe, right cerebellar hemisphere, right anterior frontal lobe and the right frontal convexity and left frontal white matter. 14. Mild oropharyngeal dysphagia. 15. Constipation. 16. Hypovitaminosis D. 17. Depression. 18. Hypothyroidism. 19. Hyperlipidemia. 20. History of tremors. 21. Episodic hallucination and confusion secondary to brain metastasis. 22. Mild oropharyngeal dysphagia. 1. Stage IV small cell carcinoma of the lung with brain metastasis, mediastinal metastasis. 2. Encephalopathy. 3. Episodic confusion. 4. Hypertension. 5. Bradyarrhythmia. 6. Hypokalemia. 7. Decadron-induced hyperglycemia. 8. Normocytic anemia. 9. Leukocytosis. 10. Xarelto-dependent atrial fibrillation. 11. Large right frontal metastatic lesion with hemorrhagic lesion. 12. Large right frontal hemorrhagic metastases lesion. 13. Multiple ring-enhancing metastatic lesion throughout the brain including the right frontal lobe with surrounding edema and mass effect with compression of the right frontal horn and small amount of midline shift anteriorly. 14. Multiple ring-enhancing metastatic lesion in the right temporal lobe, right cerebellar hemisphere, right anterior frontal lobe and the right frontal convexity and the left frontal white matter. 15. Mild oropharyngeal dysphagia. 16. Constipation. 17. Hypovitaminosis D. 18. Depression. 19. Hyperlipidemia. 20. Hypothyroidism. 21. History of tremors. 22. History of Xarelto-dependent atrial fibrillation. 23. Deconditioning. 1. Stage IV small cell lung carcinoma with brain metastasis, mediastinal metastasis and metastasis. 2. Encephalopathy. 3. Episodic confusion. 4. Hypertension. 6. Hypoxemia. 7. Atrial fibrillation. 8. Steroid-induced leukocytosis. 9 Normocytic anemia. 10. Hypokalemia. 11. Mild prerenal kidney injury. 12. Deconditioning. 13. Tremors. 14. Depression. 15. Stage IV small cell lung carcinoma, status post chemotherapy. 16. Hypothyroidism. 18. Former nicotine dependence. 19. Status post fall. 20. 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 21. Tremor secondary to metastatic brain lesion. 22. Depression. 23. Oropharyngeal dysphagia with [id number] risk for aspiration. 24. Episodic hallucination and confusion. 25. Constipation. 26. Atrial fibrillation. 27. Hypovitaminosis D. 28. Hyperlipidemia. 1. Stage IV small-cell lung carcinoma with brain metastasis. 2. Hypoxemia. 3. Hypertension. 4. Paroxysmal atrial fibrillation. 5. Leukocytosis with granulocytosis. 6. Anemia. 7. Xarelto-dependent atrial fibrillation. 8. Prerenal kidney injury. 9. Mild oropharyngeal dysphagia with low to moderate risk for aspiration due to oral residue with solids and globus sensation and multiple swallows. 10. Depression. 11. Constipation. 12. Hypovitaminosis D. 13. Anxiety. 14. Hyperlipidemia. 15. History of nicotine dependence. 16. Hypothyroidism. 1. Large right frontal lobe mass with small amount of hemorrhage along the inferior border with multiple ring-enhancing metastatic lesion throughout the brain parenchyma with largest lesion in the right frontal lobe with surrounding edema and mass effect with compression of the right frontal horn and small midline shift anteriorly. 2. Right middle lobe, right lower lobe soft tissue mass surrounding the right bronchus intermedius and right lower lobe bronchus with additional right lower lobe mass with increasing size. 3. Right lung apex cystic formation with emphysema. 4. Left lower lobe focal opacity with left lower lobe atelectasis and elevated left hemidiaphragm. 5. Cardiomegaly. 6. Increasing mediastinal lymphadenopathy with increasing subcarinal lymphadenopathy. 7. Increasing right mid and upper mediastinal lymphadenopathy. 8. Possible hepatic metastasis. 9. Constipation with fecal stasis. 10. Colonic diverticulosis. 11. Increasing right middle lobe, right lower lobe soft tissue mass with right lower lobe soft tissue mass increasing in size. 12. Worsening mediastinal and right lower lobe lymphadenopathy. 13. Stage IV small cell lung carcinoma with metastasis, presently on whole brain radiation. 14. Xarelto-dependent atrial fibrillation. 15. Multiple brain metastases with vasogenic edema. 16. Chronic anemia of malignancy. 17. Steroid-induced leukocytosis. 18. Stage IV small cell lung carcinoma with brain metastasis and lung, liver, and mediastinal metastases. 19. History of hypothyroidism. 20. History of nicotine dependence. 21. Chemotherapy versus malignancy related peripheral neuropathy with paresthesias of the extremities. 22. History of depression. 23. Depression. 1. Encephalopathy with episodic confusion. 2. Large right frontal lobe mass with small amount of hemorrhage along the inferior border. 3. Multiple ring-enhancing metastatic lesions throughout the brain parenchyma with largest lesion in the right frontal lobe with surrounding edema and mass effect with compression of the right frontal horn and small midline shift anteriorly. 4. Multiple ring-enhancing lesions seen in the right temporal lobe and right cerebral hemisphere and right anterior frontal lobe and right frontal lobe convexity with 2.5 cm lesion of the left frontal white matter. 5. Multiple -enhancing metastatic lesion with vasogenic edema. 6. 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 7. Questionable first coccygeal segment acute fracture. 8. Left sided Port-A-Cath placement. 9. Ectatic aorta with enlargement of the cardiomediastinal silhouette. 10. Degenerative joint disease of the spine with scoliosis. 11. Questionable abnormal EKG with questionable anterior ischemia. 12. Stage IV metastatic lung carcinoma to the brain. 13. Deconditioning. 14. Normocytic anemia. 15. History of hypothyroidism. 16. Gait dysfunction. 17. History of stage IV small cell lung carcinoma. 1. Questionable syncope versus drop attack versus fall, etiology undetermined. 2. History of lung carcinoma status post chemotherapy. 3. Multiple intracranial metastatic lesion with lesion in the right anterior frontal lobe with a focal hemorrhagic area. 4. History of paroxysmal atrial fibrillation. 5. History of hypertension. 6. History of atrial fibrillation. 7. Hypothyroidism. 8. History of hypovitaminosis D. 9. History of tremor. 10. History of dyslipidemia. 11. Normocytic anemia. 12. Xarelto-dependent atrial fibrillation. 13. History of right hydropneumothorax. 14. History of stage IV small cell lung carcinoma with postobstructive pneumonia and right upper lobe complete atelectasis. 15. History of paroxysmal atrial fibrillation. 16. Hyperlipidemia. 17. Pancytopenia. 18. Symptomatic right hydropneumothorax. 19. Mediastinal intrathoracic lymphadenopathy. 20. History of right malignant pleural effusion status post thoracentesis done in 2017. 21. Left upper chest Port-A-Cath placement. 22. History of hyperlipidemia, history of hypovitaminosis D, history of hypothyroidism, history of constipation. 23. Mediastinal lymphadenopathy with occlusion of the right mainstem bronchus. Plan at this time, we are waiting for the urine culture result. PTH, vitamin D level pending. Current consultation: Hematology/Oncology, Neurology. The patient was seen by Hematology on 11/16/2017. I have requested a reevaluation by Neurology Hematology regarding the resumption of Xarelto. CURRENT MEDICATIONS: Cipro 250 mg twice a day, Colace 100 mg three times a day, amiodarone 200 mg daily, Drisdol 50,000 units weekly, Klonopin 0.5 mg daily p.r.n., Lexapro 10 mg daily, Lipitor 40 mg daily, MiraLax 17 g twice a day, Os-Bladimir with vitamin D 1 tablet daily x3 doses, Protonix 40 mg daily, Pyridium 100 mg three times a day for nine doses, Spiriva 18 mcg daily, Synthroid 100 mcg daily, Tessalon Perles 200 three times a day, Toprol-XL 50 mg daily, Tylenol 650 mg p.o. suppository every 6 p.r.n., vitamin D3 at 2000 International Units daily, Xopenex nebulizer 0.63 mg every 6 hours, Zofran 4 mg IV every 4 hours p.r.n., incentive spirometry, oxygen 2 L. Out of bed, occupational therapy, physical therapy ordered. Dictated and electronically signed, not read. Loki Keyes MD MTDD
[2017-11-18] MEDS: Tiotropium 18 mcg Cap For Inhalation IH SCH (09:50)
[2017-11-18] MEDS: Cholecalciferol 1,000 INTLU TAB PO SCH (09:51)
[2017-11-18] MEDS: Calcium-Vit D 250 mg-125 Units Tab UD PO SCH (09:52)
[2017-11-18] MEDS: Metoprolol Succinate 50 mg XL Tab PO SCH (09:53)
[2017-11-18] MEDS: POLYETHYLENE GLYCOL 3350 17 GM/Dose PACKET PO SCH ×2 (09:54→17:39)
[2017-11-19] MEDS: Levalbuterol 0.63 MG/3 ML Inhal Soln UD IH SCH ×4 (03:15→20:35)
[2017-11-19] MEDS: Levothyroxine 100 MCG TAB PO SCH (05:59)
[2017-11-19] MEDS: Pantoprazole 40 mg EC Tab PO SCH (05:59)
[2017-11-19] MEDS: POLYETHYLENE GLYCOL 3350 17 GM/Dose PACKET PO SCH ×2 (10:15→17:47)
[2017-11-19] MEDS: Calcium-Vit D 250 mg-125 Units Tab UD PO SCH (10:18)
[2017-11-19] MEDS: Cholecalciferol 1,000 INTLU TAB PO SCH (10:18)
[2017-11-19] MEDS: Tiotropium 18 mcg Cap For Inhalation IH SCH (10:18)
[2017-11-19] MEDS: Metoprolol Succinate 50 mg XL Tab PO SCH (10:19)
[2017-11-20] MEDS: Levalbuterol 0.63 MG/3 ML Inhal Soln UD IH SCH ×4 (03:16→20:47)
[2017-11-20] MEDS: Levothyroxine 100 MCG TAB PO SCH (05:47)
[2017-11-20] MEDS: Pantoprazole 40 mg EC Tab PO SCH (05:47)
--- NOTE | 2017-11-20 08:40 | PN ---
DATE: 11/19/2017 SUBJECTIVE: The patient is seen in room 319, bed 1. The patient's son, Uday is at bedside. The patient is alert, awake, responsive. Overnight nurse's notes were reviewed. The patient was found to be alert, awake, oriented x2-3. The patient needs assistance with out of bed to chair. The patient had continuously have upper extremity tremors. The patient denies any chest pain or shortness of breath. PHYSICAL EXAMINATION: VITAL SIGNS: T-max 98, pulse 73, blood pressure 116/75, respirations 18, O2 sat 94-92, 95%. HEENT: Head examination normocephalic, atraumatic. HEENT examination shows pink conjunctivae. Anicteric sclerae. No oropharyngeal lesion. No oral thrush noted. No neck rigidity. CHEST: Kyphosis. Positive upper chest Port-A-Cath noted. LUNGS: Shows positive rhonchi, right upper lung field. HEART: Questionable soft systolic murmur, left sternal border, right second intercostal space. ABDOMEN: Soft. Positive bowel sound. Genitalia: Female. RECTAL: Deferred. No suprapubic tenderness. No right and left lower quadrant, upper quadrant tenderness. No costovertebral angle tenderness. GENITALIA: Female. RECTAL: Deferred. EXTREMITY: Shows no pitting edema, no calf tenderness, no Homans' sign. NEUROLOGICAL: The patient is alert, awake, responsive, is able to move upper and lower extremity without assistance. Gait examination is not tested. VASCULAR: Palpable pulses. DIAGNOSTICS: None from 11/19/2017. Fingerstick blood sugar averaging in high 90s to 100. The patient's chemistry from 11/18/2017 was reviewed, which is all within normal limit. Vitamin D 25-hydroxy is 25. Urine culture is negative. IMPRESSION AND PLAN: 1. Deconditioning. 2. Gait dysfunction. 3. 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 4. Episodic altered mental status with episodic confusion. 5. Oropharyngeal dysphagia (resolved). 6. Severe deconditioning. 7. Gait dysfunction. 8. Upper extremity tremors. 9. Depression. 10. Dysuria with negative urine culture. 11. Normocytic anemia. 12. Granulocytosis. 13. Transient hypocalcemia. 14. Mild protein malnutrition. 15. History of atrial fibrillation. 16. Anemia of chronic malignancy. 17. Constipation. 18. Hypovitaminosis D. 19. Depression. 20. Hyperlipidemia. 21. Emphysema. 22. Hypothyroidism. 23. Status post bradycardia. 1. Dysuria and frequency, etiology undetermined, questionable urinary tract infection. 2. Hypoxemia. 3. Normocytic anemia. 4. Granulocytosis. 5. Hypokalemia. 6. Mild prerenal kidney injury. 7. Hypoalbuminemia. 8. Mild protein malnutrition and mild hypoalbuminemia. 9. Deconditioning. 10. Gait dysfunction. 11. Episodic hallucination and confusion secondary to brain metastasis. 12. Mild oropharyngeal dysphagia (resolved). 13. Deconditioning. 14. Gait dysfunction. 15. Atrial fibrillation. 16. Hypovitaminosis D. 17. Anxiety. 18. Upper extremity tremors. 19. Depression. 20. Hyperlipidemia. 21. Constipation. 22. Hypothyroidism. 23. Bradycardia (resolved). 1. Dysuria with frequency and foul urine, questionable etiology with possible urinary tract infection in an immunocompromised patient. 2. Deconditioning. 3. Gait dysfunction. 4. Status post bradycardia. 5. Hypoxemia. 6. 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 7. Normocytic anemia. 8. Upper extremity tremors. 9. Granulocytosis. 10. Status post fall. 11. Depression. 12. Anemia of chronic disease secondary to malignancy. 13. Urinary tract infection. 1. Deconditioning. 2. Gait dysfunction. 3. Upper extremity tremors. 4. 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 5. Constipation. 6. Depression. 7. Xarelto dependent atrial fibrillation. 8. Hypovitaminosis D. 9. Hyperlipidemia. 10. Hypothyroidism. 1. Bradycardia. 2. Deconditioning. 3. Gait dysfunction. 4. Stage IV small cell lung carcinoma with multiple ring-enhancing brain metastases with vasogenic edema and mild midline shift. 5. Normocytic anemia. 6. Granulocytosis. 7. Steroid Decadron-induced hyperglycemia. 8. Prerenal kidney injury. 9. History of Xarelto-dependent atrial fibrillation. 10. Stage IV small cell lung carcinoma with mediastinal adenopathy and intrathoracic progressive disease. 11. History of hypothyroidism. 12. Status post chemotherapy. 13. Former tobacco user. 14. Chronic upper extremity tremors. 15. Possible depression. 16. Constipation. 17. Hypovitaminosis D. 18. History of nicotine dependence. 1. Deconditioning. 2. Gait dysfunction. 3. Stage IV small cell carcinoma of the lung with brain metastasis and mediastinal metastasis. 4. Encephalopathy with episodic confusion secondary to brain metastasis. 5. Hypertension. 6. Bradyarrhythmia and bradycardia. 7. Hypokalemia. 8. Decadron induced hyperglycemia. 9. Normocytic anemia. 10. Leukocytosis. 11. Xarelto-dependent atrial fibrillation. 12. Large right frontal hemorrhagic metastatic lesion. 13. Multiple ring-enhancing metastatic lesion throughout the brain including the right frontal lobe with surrounding edema and mass effect with compression of the right frontal horn and small amount of midline shift anteriorly with multiple ring-enhancing metastatic lesion in the right temporal lobe, right cerebellar hemisphere, right anterior frontal lobe and the right frontal convexity and left frontal white matter. 14. Mild oropharyngeal dysphagia. 15. Constipation. 16. Hypovitaminosis D. 17. Depression. 18. Hypothyroidism. 19. Hyperlipidemia. 20. History of tremors. 21. Episodic hallucination and confusion secondary to brain metastasis. 22. Mild oropharyngeal dysphagia. 1. Stage IV small cell carcinoma of the lung with brain metastasis, mediastinal metastasis. 2. Encephalopathy. 3. Episodic confusion. 4. Hypertension. 5. Bradyarrhythmia. 6. Hypokalemia. 7. Decadron-induced hyperglycemia. 8. Normocytic anemia. 9. Leukocytosis. 10. Xarelto-dependent atrial fibrillation. 11. Large right frontal metastatic lesion with hemorrhagic lesion. 12. Large right frontal hemorrhagic metastases lesion. 13. Multiple ring-enhancing metastatic lesion throughout the brain including the right frontal lobe with surrounding edema and mass effect with compression of the right frontal horn and small amount of midline shift anteriorly. 14. Multiple ring-enhancing metastatic lesion in the right temporal lobe, right cerebellar hemisphere, right anterior frontal lobe and the right frontal convexity and the left frontal white matter. 15. Mild oropharyngeal dysphagia. 16. Constipation. 17. Hypovitaminosis D. 18. Depression. 19. Hyperlipidemia. 20. Hypothyroidism. 21. History of tremors. 22. History of Xarelto-dependent atrial fibrillation. 23. Deconditioning. 1. Stage IV small cell lung carcinoma with brain metastasis, mediastinal metastasis and metastasis. 2. Encephalopathy. 3. Episodic confusion. 4. Hypertension. 6. Hypoxemia. 7. Atrial fibrillation. 8. Steroid-induced leukocytosis. 9 Normocytic anemia. 10. Hypokalemia. 11. Mild prerenal kidney injury. 12. Deconditioning. 13. Tremors. 14. Depression. 15. Stage IV small cell lung carcinoma, status post chemotherapy. 16. Hypothyroidism. 18. Former nicotine dependence. 19. Status post fall. 20. 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 21. Tremor secondary to metastatic brain lesion. 22. Depression. 23. Oropharyngeal dysphagia with [id number] risk for aspiration. 24. Episodic hallucination and confusion. 25. Constipation. 26. Atrial fibrillation. 27. Hypovitaminosis D. 28. Hyperlipidemia. 1. Stage IV small-cell lung carcinoma with brain metastasis. 2. Hypoxemia. 3. Hypertension. 4. Paroxysmal atrial fibrillation. 5. Leukocytosis with granulocytosis. 6. Anemia. 7. Xarelto-dependent atrial fibrillation. 8. Prerenal kidney injury. 9. Mild oropharyngeal dysphagia with low to moderate risk for aspiration due to oral residue with solids and globus sensation and multiple swallows. 10. Depression. 11. Constipation. 12. Hypovitaminosis D. 13. Anxiety. 14. Hyperlipidemia. 15. History of nicotine dependence. 16. Hypothyroidism. 1. Large right frontal lobe mass with small amount of hemorrhage along the inferior border with multiple ring-enhancing metastatic lesion throughout the brain parenchyma with largest lesion in the right frontal lobe with surrounding edema and mass effect with compression of the right frontal horn and small midline shift anteriorly. 2. Right middle lobe, right lower lobe soft tissue mass surrounding the right bronchus intermedius and right lower lobe bronchus with additional right lower lobe mass with increasing size. 3. Right lung apex cystic formation with emphysema. 4. Left lower lobe focal opacity with left lower lobe atelectasis and elevated left hemidiaphragm. 5. Cardiomegaly. 6. Increasing mediastinal lymphadenopathy with increasing subcarinal lymphadenopathy. 7. Increasing right mid and upper mediastinal lymphadenopathy. 8. Possible hepatic metastasis. 9. Constipation with fecal stasis. 10. Colonic diverticulosis. 11. Increasing right middle lobe, right lower lobe soft tissue mass with right lower lobe soft tissue mass increasing in size. 12. Worsening mediastinal and right lower lobe lymphadenopathy. 13. Stage IV small cell lung carcinoma with metastasis, presently on whole brain radiation. 14. Xarelto-dependent atrial fibrillation. 15. Multiple brain metastases with vasogenic edema. 16. Chronic anemia of malignancy. 17. Steroid-induced leukocytosis. 18. Stage IV small cell lung carcinoma with brain metastasis and lung, liver, and mediastinal metastases. 19. History of hypothyroidism. 20. History of nicotine dependence. 21. Chemotherapy versus malignancy related peripheral neuropathy with paresthesias of the extremities. 22. History of depression. 23. Depression. 1. Encephalopathy with episodic confusion. 2. Large right frontal lobe mass with small amount of hemorrhage along the inferior border. 3. Multiple ring-enhancing metastatic lesions throughout the brain parenchyma with largest lesion in the right frontal lobe with surrounding edema and mass effect with compression of the right frontal horn and small midline shift anteriorly. 4. Multiple ring-enhancing lesions seen in the right temporal lobe and right cerebral hemisphere and right anterior frontal lobe and right frontal lobe convexity with 2.5 cm lesion of the left frontal white matter. 5. Multiple -enhancing metastatic lesion with vasogenic edema. 6. 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 7. Questionable first coccygeal segment acute fracture. 8. Left sided Port-A-Cath placement. 9. Ectatic aorta with enlargement of the cardiomediastinal silhouette. 10. Degenerative joint disease of the spine with scoliosis. 11. Questionable abnormal EKG with questionable anterior ischemia. 12. Stage IV metastatic lung carcinoma to the brain. 13. Deconditioning. 14. Normocytic anemia. 15. History of hypothyroidism. 16. Gait dysfunction. 17. History of stage IV small cell lung carcinoma. 1. Questionable syncope versus drop attack versus fall, etiology undetermined. 2. History of lung carcinoma status post chemotherapy. 3. Multiple intracranial metastatic lesion with lesion in the right anterior frontal lobe with a focal hemorrhagic area. 4. History of paroxysmal atrial fibrillation. 5. History of hypertension. 6. History of atrial fibrillation. 7. Hypothyroidism. 8. History of hypovitaminosis D. 9. History of tremor. 10. History of dyslipidemia. 11. Normocytic anemia. 12. Xarelto-dependent atrial fibrillation. 13. History of right hydropneumothorax. 14. History of stage IV small cell lung carcinoma with postobstructive pneumonia and right upper lobe complete atelectasis. 15. History of paroxysmal atrial fibrillation. 16. Hyperlipidemia. 17. Pancytopenia. 18. Symptomatic right hydropneumothorax. 19. Mediastinal intrathoracic lymphadenopathy. 20. History of right malignant pleural effusion status post thoracentesis done in 2017. 21. Left upper chest Port-A-Cath placement. 22. History of hyperlipidemia, history of hypovitaminosis D, history of hypothyroidism, history of constipation. 23. Mediastinal lymphadenopathy with occlusion of the right mainstem bronchus. Plan at this time, the patient is to be continued on Transitional Care Unit until approved number of days. CURRENT CONSULTATION: Hematology/Oncology, Neurology and Radiation Oncology. The patient is to be continued on daily radiation treatment to the brain. CURRENT MEDICATIONS: Colace 100 mg three times a day, amiodarone 200 mg daily, Drisdol 50,000 units weekly, Klonopin 0.5 mg daily p.r.n., Lexapro 10 mg daily, Lipitor 40 mg daily, MiraLax 17 g twice a day, Protonix 40 mg daily, Pyridium 100 mg three times a day, Spiriva 18 mcg daily, Synthroid 100 mcg daily, Tessalon Perles 200 three times a day, Toprol-XL 50 mg daily, Tylenol 650 mg p.o. suppository every 6 p.r.n., vitamin D3 at 2000 International Units daily, Xopenex nebulizer 0.63 mg every 6 hours, Zofran 4 mg IV every 4 hours p.r.n., incentive spirometry 2 L nasal cannula. Head of the bed at 30 degrees, ROEL stockings, neuro checks, occupational therapy, physical therapy have all been ordered. At present, the patient will be continued on Transitional Care Unit stay with daily physical therapy, occupational therapy, ambulation therapy, gait training and strengthening exercises. I have met with the patient's son extensively today and the patient's son was updated about the patient's condition, diagnoses, treatment options, overall guarded to poor prognosis. I have explained to the patient's son in layman's language about the wide spread of lung carcinoma to the brain and into the thoracic area with overall guarded to poor prognosis, which he acknowledged and understand. Dictated and electronically signed, not read. Loki Keyes MD [facility] # [id number]
[2017-11-20] MEDS: POLYETHYLENE GLYCOL 3350 17 GM/Dose PACKET PO SCH ×2 (09:59→17:47)
[2017-11-20] MEDS: Tiotropium 18 mcg Cap For Inhalation IH SCH (10:00)
[2017-11-20] MEDS: Metoprolol Succinate 50 mg XL Tab PO SCH (10:01)
[2017-11-20] MEDS: Cholecalciferol 1,000 INTLU TAB PO SCH (10:01)
[2017-11-20] MEDS: Lidocaine 5% Patch TD SCH (12:31)
--- NOTE | 2017-11-20 12:40 | PN ---
DATE: 11/20/2017 SUBJECTIVE: The patient is seen in room 319 bed 1. The patient is out of bed to chair. The patient is alert, awake, responsive. The patient does not offer any specific complaints.. The patient underwent radiation therapy today. OBJECTIVE: VITAL SIGNS: T-max is 98; heart rate 56, 73; blood pressure 108/65 and 116/75; O2 sat is 94%. Respirations 18. HEENT: Head is normocephalic, atraumatic. HEENT examination shows pinkish conjunctivae. Anicteric sclerae. Positive alopecia noted. NECK: No neck rigidity. Positive upper extremity tremors noted. CARDIOVASCULAR: S1, S2. Regular rhythm. LUNGS: Examination shows positive rhonchi, right more than the left. ABDOMEN: Soft. Positive bowel sounds. GENITALIA: Female. RECTAL: Examination is deferred. EXTREMITIES: Shows no pitting edema, no calf tenderness, no Kari's sign. NEUROLOGIC: The patient is alert, awake, oriented x3;, is able to move upper and lower extremities without assistance. Gait examination is not tested. Motor strength is 5/5 in upper and lower extremity. VASCULAR: Palpable pulses. Cranial nerves II-XII limited and intact. IMPRESSION AND PLAN: 1. Deconditioning. 2. Gait dysfunction. 3. 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 4. Multiple ring-enhancing brain metastasis with hemorrhagic metastases with vasogenic edema and midline shift. 5. Hypotension. 6. Bradycardia. 7. Normocytic anemia. 8. Granulocytosis. 9. Hypokalemia. 10. Hypocalcemia. 11. History of atrial fibrillation. 12. Upper extremity tremors. 13. Depression. 14. Constipation. 15. Paroxysmal atrial fibrillation. 16. Hypovitaminosis D. 17. Hyperlipidemia. 18. Constipation. 19. Chronic obstructive pulmonary disease. 20. Hypothyroidism. 21. Former smoker. 1. Deconditioning. 2. Gait dysfunction. 3. 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 4. Episodic altered mental status with episodic confusion. 5. Oropharyngeal dysphagia (resolved). 6. Severe deconditioning. 7. Gait dysfunction. 8. Upper extremity tremors. 9. Depression. 10. Dysuria with negative urine culture. 11. Normocytic anemia. 12. Granulocytosis. 13. Transient hypocalcemia. 14. Mild protein malnutrition. 15. History of atrial fibrillation. 16. Anemia of chronic malignancy. 17. Constipation. 18. Hypovitaminosis D. 19. Depression. 20. Hyperlipidemia. 21. Emphysema. 22. Hypothyroidism. 23. Status post bradycardia. 1. Dysuria and frequency, etiology undetermined, questionable urinary tract infection. 2. Hypoxemia. 3. Normocytic anemia. 4. Granulocytosis. 5. Hypokalemia. 6. Mild prerenal kidney injury. 7. Hypoalbuminemia. 8. Mild protein malnutrition and mild hypoalbuminemia. 9. Deconditioning. 10. Gait dysfunction. 11. Episodic hallucination and confusion secondary to brain metastasis. 12. Mild oropharyngeal dysphagia (resolved). 13. Deconditioning. 14. Gait dysfunction. 15. Atrial fibrillation. 16. Hypovitaminosis D. 17. Anxiety. 18. Upper extremity tremors. 19. Depression. 20. Hyperlipidemia. 21. Constipation. 22. Hypothyroidism. 23. Bradycardia (resolved). 1. Dysuria with frequency and foul urine, questionable etiology with possible urinary tract infection in an immunocompromised patient. 2. Deconditioning. 3. Gait dysfunction. 4. Status post bradycardia. 5. Hypoxemia. 6. 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 7. Normocytic anemia. 8. Upper extremity tremors. 9. Granulocytosis. 10. Status post fall. 11. Depression. 12. Anemia of chronic disease secondary to malignancy. 13. Urinary tract infection. 1. Deconditioning. 2. Gait dysfunction. 3. Upper extremity tremors. 4. 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 5. Constipation. 6. Depression. 7. Xarelto dependent atrial fibrillation. 8. Hypovitaminosis D. 9. Hyperlipidemia. 10. Hypothyroidism. 1. Bradycardia. 2. Deconditioning. 3. Gait dysfunction. 4. Stage IV small cell lung carcinoma with multiple ring-enhancing brain metastases with vasogenic edema and mild midline shift. 5. Normocytic anemia. 6. Granulocytosis. 7. Steroid Decadron-induced hyperglycemia. 8. Prerenal kidney injury. 9. History of Xarelto-dependent atrial fibrillation. 10. Stage IV small cell lung carcinoma with mediastinal adenopathy and intrathoracic progressive disease. 11. History of hypothyroidism. 12. Status post chemotherapy. 13. Former tobacco user. 14. Chronic upper extremity tremors. 15. Possible depression. 16. Constipation. 17. Hypovitaminosis D. 18. History of nicotine dependence. 1. Deconditioning. 2. Gait dysfunction. 3. Stage IV small cell carcinoma of the lung with brain metastasis and mediastinal metastasis. 4. Encephalopathy with episodic confusion secondary to brain metastasis. 5. Hypertension. 6. Bradyarrhythmia and bradycardia. 7. Hypokalemia. 8. Decadron induced hyperglycemia. 9. Normocytic anemia. 10. Leukocytosis. 11. Xarelto-dependent atrial fibrillation. 12. Large right frontal hemorrhagic metastatic lesion. 13. Multiple ring-enhancing metastatic lesion throughout the brain including the right frontal lobe with surrounding edema and mass effect with compression of the right frontal horn and small amount of midline shift anteriorly with multiple ring-enhancing metastatic lesion in the right temporal lobe, right cerebellar hemisphere, right anterior frontal lobe and the right frontal convexity and left frontal white matter. 14. Mild oropharyngeal dysphagia. 15. Constipation. 16. Hypovitaminosis D. 17. Depression. 18. Hypothyroidism. 19. Hyperlipidemia. 20. History of tremors. 21. Episodic hallucination and confusion secondary to brain metastasis. 22. Mild oropharyngeal dysphagia. 1. Stage IV small cell carcinoma of the lung with brain metastasis, mediastinal metastasis. 2. Encephalopathy. 3. Episodic confusion. 4. Hypertension. 5. Bradyarrhythmia. 6. Hypokalemia. 7. Decadron-induced hyperglycemia. 8. Normocytic anemia. 9. Leukocytosis. 10. Xarelto-dependent atrial fibrillation. 11. Large right frontal metastatic lesion with hemorrhagic lesion. 12. Large right frontal hemorrhagic metastases lesion. 13. Multiple ring-enhancing metastatic lesion throughout the brain including the right frontal lobe with surrounding edema and mass effect with compression of the right frontal horn and small amount of midline shift anteriorly. 14. Multiple ring-enhancing metastatic lesion in the right temporal lobe, right cerebellar hemisphere, right anterior frontal lobe and the right frontal convexity and the left frontal white matter. 15. Mild oropharyngeal dysphagia. 16. Constipation. 17. Hypovitaminosis D. 18. Depression. 19. Hyperlipidemia. 20. Hypothyroidism. 21. History of tremors. 22. History of Xarelto-dependent atrial fibrillation. 23. Deconditioning. 1. Stage IV small cell lung carcinoma with brain metastasis, mediastinal metastasis and metastasis. 2. Encephalopathy. 3. Episodic confusion. 4. Hypertension. 6. Hypoxemia. 7. Atrial fibrillation. 8. Steroid-induced leukocytosis. 9 Normocytic anemia. 10. Hypokalemia. 11. Mild prerenal kidney injury. 12. Deconditioning. 13. Tremors. 14. Depression. 15. Stage IV small cell lung carcinoma, status post chemotherapy. 16. Hypothyroidism. 18. Former nicotine dependence. 19. Status post fall. 20. 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 21. Tremor secondary to metastatic brain lesion. 22. Depression. 23. Oropharyngeal dysphagia with [id number] risk for aspiration. 24. Episodic hallucination and confusion. 25. Constipation. 26. Atrial fibrillation. 27. Hypovitaminosis D. 28. Hyperlipidemia. 1. Stage IV small-cell lung carcinoma with brain metastasis. 2. Hypoxemia. 3. Hypertension. 4. Paroxysmal atrial fibrillation. 5. Leukocytosis with granulocytosis. 6. Anemia. 7. Xarelto-dependent atrial fibrillation. 8. Prerenal kidney injury. 9. Mild oropharyngeal dysphagia with low to moderate risk for aspiration due to oral residue with solids and globus sensation and multiple swallows. 10. Depression. 11. Constipation. 12. Hypovitaminosis D. 13. Anxiety. 14. Hyperlipidemia. 15. History of nicotine dependence. 16. Hypothyroidism. 1. Large right frontal lobe mass with small amount of hemorrhage along the inferior border with multiple ring-enhancing metastatic lesion throughout the brain parenchyma with largest lesion in the right frontal lobe with surrounding edema and mass effect with compression of the right frontal horn and small midline shift anteriorly. 2. Right middle lobe, right lower lobe soft tissue mass surrounding the right bronchus intermedius and right lower lobe bronchus with additional right lower lobe mass with increasing size. 3. Right lung apex cystic formation with emphysema. 4. Left lower lobe focal opacity with left lower lobe atelectasis and elevated left hemidiaphragm. 5. Cardiomegaly. 6. Increasing mediastinal lymphadenopathy with increasing subcarinal lymphadenopathy. 7. Increasing right mid and upper mediastinal lymphadenopathy. 8. Possible hepatic metastasis. 9. Constipation with fecal stasis. 10. Colonic diverticulosis. 11. Increasing right middle lobe, right lower lobe soft tissue mass with right lower lobe soft tissue mass increasing in size. 12. Worsening mediastinal and right lower lobe lymphadenopathy. 13. Stage IV small cell lung carcinoma with metastasis, presently on whole brain radiation. 14. Xarelto-dependent atrial fibrillation. 15. Multiple brain metastases with vasogenic edema. 16. Chronic anemia of malignancy. 17. Steroid-induced leukocytosis. 18. Stage IV small cell lung carcinoma with brain metastasis and lung, liver, and mediastinal metastases. 19. History of hypothyroidism. 20. History of nicotine dependence. 21. Chemotherapy versus malignancy related peripheral neuropathy with paresthesias of the extremities. 22. History of depression. 23. Depression. 1. Encephalopathy with episodic confusion. 2. Large right frontal lobe mass with small amount of hemorrhage along the inferior border. 3. Multiple ring-enhancing metastatic lesions throughout the brain parenchyma with largest lesion in the right frontal lobe with surrounding edema and mass effect with compression of the right frontal horn and small midline shift anteriorly. 4. Multiple ring-enhancing lesions seen in the right temporal lobe and right cerebral hemisphere and right anterior frontal lobe and right frontal lobe convexity with 2.5 cm lesion of the left frontal white matter. 5. Multiple -enhancing metastatic lesion with vasogenic edema. 6. 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 7. Questionable first coccygeal segment acute fracture. 8. Left sided Port-A-Cath placement. 9. Ectatic aorta with enlargement of the cardiomediastinal silhouette. 10. Degenerative joint disease of the spine with scoliosis. 11. Questionable abnormal EKG with questionable anterior ischemia. 12. Stage IV metastatic lung carcinoma to the brain. 13. Deconditioning. 14. Normocytic anemia. 15. History of hypothyroidism. 16. Gait dysfunction. 17. History of stage IV small cell lung carcinoma. 1. Questionable syncope versus drop attack versus fall, etiology undetermined. 2. History of lung carcinoma status post chemotherapy. 3. Multiple intracranial metastatic lesion with lesion in the right anterior frontal lobe with a focal hemorrhagic area. 4. History of paroxysmal atrial fibrillation. 5. History of hypertension. 6. History of atrial fibrillation. 7. Hypothyroidism. 8. History of hypovitaminosis D. 9. History of tremor. 10. History of dyslipidemia. 11. Normocytic anemia. 12. Xarelto-dependent atrial fibrillation. 13. History of right hydropneumothorax. 14. History of stage IV small cell lung carcinoma with postobstructive pneumonia and right upper lobe complete atelectasis. 15. History of paroxysmal atrial fibrillation. 16. Hyperlipidemia. 17. Pancytopenia. 18. Symptomatic right hydropneumothorax. 19. Mediastinal intrathoracic lymphadenopathy. 20. History of right malignant pleural effusion status post thoracentesis done in 2017. 21. Left upper chest Port-A-Cath placement. 22. History of hyperlipidemia, history of hypovitaminosis D, history of hypothyroidism, history of constipation. 23. Mediastinal lymphadenopathy with occlusion of the right mainstem bronchus. PLAN: At this time, the patient is to be continued on Transitional Care Unit stay. We are still awaiting recommendation from Hematology/Oncology and Neurology regarding resumption of Xarelto. The patient is currently on Colace 100 three times a day, amiodarone 200 mg daily, Drisdol 50,000 weekly, Klonopin 0.5 mg p.o. daily p.r.n., Lexapro 10 mg daily, Lipitor 40 mg daily, MiraLax 17 g twice a day, Protonix 40 mg daily, Spiriva 18 mcg daily, Synthroid 100 mcg daily, Tessalon Perles 200 three times a day, Toprol-XL 50 daily, Xopenex nebulizer. The patient will be continued on Transitional Care Unit with daily physical therapy, occupational therapy, ambulation therapy, gait training. The patient will be considered for discharge once the patient has completed her Transitional Care Unit stay. Dictated and electronically signed, not read. Loki Keyes MD MTDD
[2017-11-21] MEDS: Levalbuterol 0.63 MG/3 ML Inhal Soln UD IH SCH ×4 (03:15→19:48)
[2017-11-21] MEDS: Pantoprazole 40 mg EC Tab PO SCH (05:10)
[2017-11-21] MEDS: Levothyroxine 100 MCG TAB PO SCH (05:12)
[2017-11-21] MEDS: Lidocaine 5% Patch TD SCH ×2 (06:16→10:35)
[2017-11-21] MEDS: Metoprolol Succinate 50 mg XL Tab PO SCH (07:49)
[2017-11-21] MEDS: POLYETHYLENE GLYCOL 3350 17 GM/Dose PACKET PO SCH ×3 (10:36→17:20)
[2017-11-21] MEDS: Tiotropium 18 mcg Cap For Inhalation IH SCH (10:36)
[2017-11-21] MEDS: Cholecalciferol 1,000 INTLU TAB PO SCH (10:37)
[2017-11-21] MEDS ORDERED: Oxycodone/Acetaminophen 5/325 mg Tab PO PRN (17:53)
--- NOTE | 2017-11-21 19:44 | PN ---
DATE: 11/21/2017 SUBJECTIVE: The patient was seen in room 319, bed 1. The patient was supposed to be discharged today, but the patient's son stated to the social media project manager for evaluation for subacute rehab. At this point, the patient's case was referred to the insurance company for extension of the TCU stay. I had a lengthy discussion with the patient in presence of the nurses and the patient was also met with the social media project manager. The patient has stated that her wishes is to go home after completion of radiation therapy, which will be tomorrow. The patient will have the last dose of radiation therapy. The patient is sitting up in the recliner in room 319. PHYSICAL EXAMINATION: GENERAL: The patient is completely alert, awake, responsive, oriented x3. VITAL SIGNS: T-max 98.7, heart rate 66-60, blood pressure 107/72, 106/70, respiration 18, O2 sat 92-98%. HEENT: Head: Normocephalic, atraumatic. HEENT examination shows positive alopecia. Positive pinkish pale conjunctivae. Anicteric sclerae. No oropharyngeal lesion. No oral thrush noted. NECK: No neck rigidity. CHEST: Kyphosis. LUNGS: Shows occasional rhonchi in upper lung ellis posteriorly on the right side. CARDIOVASCULAR: S1, S2, regular rhythm. ABDOMEN: Soft. Positive bowel sounds. GENITALIA: Female. RECTAL: Deferred. EXTREMITIES: Shows no pitting edema, no calf tenderness, no Homans' sign. NEUROLOGICAL: The patient is alert, awake, oriented x3. Cranial nerves II-XII limited. Positive upper extremity tremors noted. Gait examination is not tested. MUSCULOSKELETAL: Shows a body mass index of 29.5. PSYCHIATRIC: Positive for upper extremity tremors, anxiety and depression. DIAGNOSTICS: Fingerstick blood sugar 91, 87, 88, 154. Urine culture is negative. IMPRESSION: 1. Gait dysfunction. 2. Deconditioning. 3. Upper extremity tremors. 4. Stage IV small cell metastatic carcinoma with multiple ring-enhancing metastatic lesion to the brain and multiple brain metastasis with hemorrhagic metastasis and with vasogenic edema and midline shift. 5. Status post radiation therapy. 6. Stage IV small cell lung carcinoma. 7. Hypotension. 8. Bradycardia. 9. Deconditioning. 10. Normocytic anemia and anemia of malignancy. 11. Granulocytosis. 12. Mild hypoalbuminemia. 13. Protein malnutrition. 14. Questionable secondary hyperparathyroidism. 15. Transient hypokalemia and hypocalcemia. PLAN AT THIS TIME: The patient's case was referred by the social media project manager to the patient's insurance company. The patient's insurance approved the patient's stay till tomorrow and the patient has stated very clearly that she would like to go back to home and the patient declined going to subacute rehab. The patient is interested in going back home tomorrow after completion of the radiation therapy. CURRENT MEDICATIONS: Colace 100 three times a day, amiodarone 200 mg daily, Drisdol 50,000 units weekly, Klonopin 0.5 daily p.r.n., Lexapro 10 mg daily, Lidoderm 5% patch to the affected area of pain, Lipitor 40 mg daily, MiraLax 17 g twice a day, Protonix 40 mg daily, Spiriva 18 mcg daily, Synthroid 100 mcg daily, Tessalon Perles 200 three times a day, Toprol-XL decreased to 50 mg daily, Tylenol 650 mg p.o. suppository every 6 hours p.r.n., cholecalciferol, vitamin D3 2000 International Units daily, Xopenex nebulizer 0.63 mg every 6 hours, Zofran 4 mg IV every 4 p.r.n. In addition, the patient has been complaining of pain in the back and the spine area. The patient will be started on low-dose Percocet 5/325 every 6 hours p.r.n. for [id number] pain starting now. At present, the patient will continued to be managed on Transitional Care Unit with daily physical therapy, ambulation therapy, occupational therapy, gait training and continuation of the radiation. The patient's case was discussed with Neurology, Dr. Reyes. He has recommended to resume the Xarelto. Dictated and electronically signed, not read. Loki Keyes MD
[2017-11-22] MEDS: Levalbuterol 0.63 MG/3 ML Inhal Soln UD IH SCH ×4 (02:40→19:24)
[2017-11-22] MEDS: Pantoprazole 40 mg EC Tab PO SCH (05:14)
[2017-11-22] MEDS: Levothyroxine 100 MCG TAB PO SCH (05:14)
[2017-11-22] MEDS: Metoprolol Succinate 50 mg XL Tab PO SCH (08:22)
[2017-11-22] MEDS: Cholecalciferol 1,000 INTLU TAB PO SCH (10:46)
[2017-11-22] MEDS: Lidocaine 5% Patch TD SCH (10:47)
[2017-11-22] MEDS: Tiotropium 18 mcg Cap For Inhalation IH SCH (10:47)
[2017-11-22] MEDS: POLYETHYLENE GLYCOL 3350 17 GM/Dose PACKET PO SCH ×2 (12:14→17:12)
[2017-11-22] MEDS: Ergocalciferol 50,000 Intl Units Cap PO SCH (12:14)
[2017-11-22 16:52] VITALS: BP 101/60; PULSE 72; RESP 21; TEMP 99.6; O2SAT 92
--- NOTE | 2017-11-22 22:48 | CP.PCM.PN ---
Subjective - Date & Time of Evaluation Date of Evaluation: 11/18/17 Time of Evaluation: 12:00 - Subjective Subjective: No complaints. Objective - Vital Signs/Intake and Output Vital Signs (last 24 hours): Temp Pulse Resp BP Pulse Ox 99.6 F 72 21 101/60 92 L 11/22/17 16:00 11/22/17 16:00 11/22/17 16:00 11/22/17 16:00 11/22/17 16:00 Intake and Output: 11/22/17 11/23/17 18:59 06:59 Intake Total 420 Balance 420 - Labs Labs: 11/17/17 11:20 11/18/17 07:30 - Head Exam Head Exam: ATRAUMATIC - Eye Exam Eye Exam: Normal appearance - ENT Exam ENT Exam: Mucous Membranes Dry - Respiratory Exam Respiratory Exam: NORMAL BREATHING PATTERN - Cardiovascular Exam Cardiovascular Exam: +S1, +S2 - GI/Abdominal Exam GI & Abdominal Exam: Normal Bowel Sounds Assessment and Plan (1) Brain metastases Assessment & Plan: receiving whole brain radiotherapy steroids Status: Acute (2) Anemia Assessment & Plan: chronic disease Status: Acute (3) Small cell lung cancer Assessment & Plan: stage IV outpatient treatment Status: Acute
--- NOTE | 2017-11-22 22:49 | CP.PCM.PN ---
Subjective - Date & Time of Evaluation Date of Evaluation: 11/20/17 Time of Evaluation: 19:00 - Subjective Subjective: No complaints. Objective - Vital Signs/Intake and Output Vital Signs (last 24 hours): Temp Pulse Resp BP Pulse Ox 99.6 F 72 21 101/60 92 L 11/22/17 16:00 11/22/17 16:00 11/22/17 16:00 11/22/17 16:00 11/22/17 16:00 Intake and Output: 11/22/17 11/23/17 18:59 06:59 Intake Total 420 Balance 420 - Labs Labs: 11/17/17 11:20 11/18/17 07:30 - Head Exam Head Exam: ATRAUMATIC - Eye Exam Eye Exam: Normal appearance - ENT Exam ENT Exam: Mucous Membranes Dry - Respiratory Exam Respiratory Exam: NORMAL BREATHING PATTERN - Cardiovascular Exam Cardiovascular Exam: +S1, +S2 - GI/Abdominal Exam GI & Abdominal Exam: Normal Bowel Sounds Assessment and Plan (1) Brain metastases Assessment & Plan: whole brain radiotherapy steroids Status: Acute (2) Anemia Assessment & Plan: chronic disease Status: Acute (3) Small cell lung cancer Assessment & Plan: stage IV outpatient treatment Status: Acute
--- NOTE | 2017-11-22 22:51 | CP.PCM.PN ---
Subjective - Date & Time of Evaluation Date of Evaluation: 11/22/17 Time of Evaluation: 12:00 - Subjective Subjective: Completed radiotherapy Objective - Vital Signs/Intake and Output Vital Signs (last 24 hours): Temp Pulse Resp BP Pulse Ox 99.6 F 72 21 101/60 92 L 11/22/17 16:00 11/22/17 16:00 11/22/17 16:00 11/22/17 16:00 11/22/17 16:00 Intake and Output: 11/22/17 11/23/17 18:59 06:59 Intake Total 420 Balance 420 - Labs Labs: 11/17/17 11:20 11/18/17 07:30 - Head Exam Head Exam: ATRAUMATIC - Eye Exam Eye Exam: Normal appearance - ENT Exam ENT Exam: Mucous Membranes Dry - Respiratory Exam Respiratory Exam: NORMAL BREATHING PATTERN - Cardiovascular Exam Cardiovascular Exam: +S1, +S2 - GI/Abdominal Exam GI & Abdominal Exam: Normal Bowel Sounds Assessment and Plan (1) Brain metastases Assessment & Plan: completed whole brain radiotherapy Status: Acute (2) Anemia Assessment & Plan: chronic disease Status: Acute (3) Small cell lung cancer Assessment & Plan: stage IV outpatient treatment Status: Acute
--- NOTE | 2017-11-23 08:06 | DS ---
FINAL PROGRESS NOTE AND DISCHARGE SUMMARY HISTORY OF PRESENT ILLNESS: The patient is seen in TCU 319, bed 1. The patient is lying in the bed. The patient is in the process of getting occupational therapy. The patient is alert, awake, responsive. The patient is lying in the bed, alert, awake, responsive. PHYSICAL EXAMINATION: VITAL SIGNS: T-max, the patient is afebrile; heart rate 68, 74, 83; respiration 18-20; O2 sat is 95% to 97%. Blood pressure is 132/84, 128/74. HEENT: Head: Normocephalic, atraumatic. HEENT examination shows positive alopecia. Pinkish pale conjunctivae. Anicteric sclerae. No oral thrush. No neck rigidity. CHEST: Kyphosis. LUNGS: Examination shows occasional rhonchi right upper lung ellis. CARDIOVASCULAR: S1, S2, regular rhythm. Soft systolic murmur at left sternal border, right second intercostal space, left second intercostal space. ABDOMEN: Soft. Positive bowel sounds. No hepatosplenomegaly noted. No organomegaly noted. GENITALIA: Female. RECTAL: Examination is deferred. EXTREMITIES: Shows no pitting edema, no calf tenderness, no Homans' sign. Positive upper chest Port-A-Cath noted. NEUROLOGIC: The patient is alert, awake, responsive, is able to move upper and lower extremities without assistance. Gait examination is not tested. VASCULAR: Palpable pulses. PSYCHIATRIC: Examination is positive for history of anxiety, upper extremity tremors and depression. DIAGNOSTICS: None today. The patient completed the last dose of radiation therapy today. FINAL IMPRESSION, PLAN AND DISCHARGE DIAGNOSES: 1. 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 2. Altered mental status with encephalopathy with episodic confusion and episodic hallucination. 3. Deconditioning. 4. Gait dysfunction. 5. 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 6. Anemia of chronic disease and anemia of malignancy. 7. Status post whole-brain radiation. 8. Status post bradycardia. 9. History of atrial fibrillation. 10. History of nicotine dependence. 11. Anemia of chronic disease. 12. Hypothyroidism. 13. Hyperlipidemia. 14. Upper extremity tremors. 15. Depression. 16. Hypovitaminosis D. PLAN: At this time, as mentioned in my yesterday's note, the patient's TCU stay was extended till today which was approved by the patient's insurance. The patient's family including the son and the patient were updated about the patient's approval and extension for one more day to Transitional Care Unit. Today the patient's will be the last day and the patient will be discharged home. At present, the patient will be discharged home with family. Discharge followup with Dr. Keyes within 1 week. DISCHARGE MEDICATIONS: As per updated ambulatory orders. The patient's Toprol is decreased to 50 mg. The patient has been resumed on Xarelto 20 mg. The patient is resumed on all other medications which the patient is taking at home. The patient has been advised close followup with Dr. Keyes within 1 week and follow up with Dr. Sohan Christie within 1 week. The patient's discharge medications are as per the revised ambulatory orders and plus new script. The patient was advised no alcohol, no smoking, no driving. During this hospitalization, I have met with the patient daily basis and I have met with the son also. During this hospitalization, I have explained to the patient and the patient's son about overall the patient's guarded to poor prognosis because of advanced malignancy and widespread metastasis. Was explained to the patient's son at length and all questions concerned answered. I have explained to the patient's son about overall guarded to poor prognosis which he acknowledged and understand. Time spent in the discharge process 45 minutes. Dictated and electronically signed, not read. Loki Keyes MD
== END 2017-11-22 20:14 | disposition home or self-care (01) | DRG 54 ==
LOC: TRCU 23:00
PROVIDERS: ADMIT Internal Medicine; ATTEND Internal Medicine
PROC: F07Z9ZZ Gait Training/Functional Ambulation Treatment (ICD-10-PCS; principal; 2017-11-14)
PROC: F07M6ZZ Therapeutic Exercise Treatment of Musculoskeletal System - Whole Body (ICD-10-PCS; 2017-11-14)
PROC: F08Z1ZZ Dressing Techniques Treatment (ICD-10-PCS; 2017-11-14)
PROC: F08Z2ZZ Grooming/Personal Hygiene Treatment (ICD-10-PCS; 2017-11-14)
PROC: F08Z0ZZ Bathing/Showering Techniques Treatment (ICD-10-PCS; 2017-11-14)
PROC: F08Z4ZZ Home Management Treatment (ICD-10-PCS; 2017-11-14)
DX: C79.31 Secondary malignant neoplasm of brain (principal); G93.6 Cerebral edema; C34.90 Malignant neoplasm of unspecified part of unspecified bronchus or lung; C78.1 Secondary malignant neoplasm of mediastinum; C78.7 Secondary malignant neoplasm of liver and intrahepatic bile duct; D61.818 Other pancytopenia; E44.1 Mild protein-calorie malnutrition; G93.40 Encephalopathy, unspecified; J94.8 Other specified pleural conditions; J98.11 Atelectasis; N39.0 Urinary tract infection, site not specified; D63.0 Anemia in neoplastic disease; E03.9 Hypothyroidism, unspecified; E55.9 Vitamin D deficiency, unspecified; E78.5 Hyperlipidemia, unspecified; E83.51 Hypocalcemia; E87.6 Hypokalemia; F32.89 Other specified depressive episodes; F41.9 Anxiety disorder, unspecified; G62.0 Drug-induced polyneuropathy; I11.9 Hypertensive heart disease without heart failure; I48.0 Paroxysmal atrial fibrillation; I49.8 Other specified cardiac arrhythmias; I77.819 Aortic ectasia, unspecified site; J44.9 Chronic obstructive pulmonary disease, unspecified; K57.30 Diverticulosis of large intestine without perforation or abscess without bleeding; K59.00 Constipation, unspecified; M41.9 Scoliosis, unspecified; M47.818 Spondylosis without myelopathy or radiculopathy, sacral and sacrococcygeal region; R09.02 Hypoxemia; R13.12 Dysphagia, oropharyngeal phase; T38.0X5A Adverse effect of glucocorticoids and synthetic analogues, initial encounter; T45.1X5A Adverse effect of antineoplastic and immunosuppressive drugs, initial encounter; W06.XXXA Fall from bed, initial encounter; Z79.01 Long term (current) use of anticoagulants; Z87.891 Personal history of nicotine dependence

== ENCOUNTER 2017-11-23 12:06 | Inpatient (IN) | payer BC ==
[2017-11-23 12:06] VITALS: BMI 28.7
--- NOTE | 2017-11-23 12:57 | ED PDOC ---
Arrival/HPI - General Historian: Patient - History of Present Illness Narrative History of Present Illness (Text): 11/23/17 12:53 62yr old female with hx of lung ca with mets to brain presents today s/p fall. pt states she fell to the ground with the right ankle underneath her. pt states her son states that she was on the ground for 4 hours. pt denies hitting her head. no headaches dizziness or weakness. No chest pain or shortness of breath. pt is c/o low back pain, bilateral hip pain and right ankle pain. denies neck pain. pt denies numbness or weakness. pt states she has bowel movement while on the ground. pt is unsure why she fell. pt states that she was walking to the bathroom and fell. denies fever/chills. denies urinary symptoms. no other complaints. <Christine Blandon - Last Filed: 11/23/17 22:42> <Rosalino Pedro - Last Filed: 11/25/17 11:36> - General Chief Complaint: Trauma Time Seen by Provider: 11/23/17 12:14 Past Medical History - Provider Review Nursing Documentation Reviewed: Yes - Travel History Have you recently traveled outside [place] w/in the past 3 mons?: No - Infectious Disease Hx of Infectious Diseases: None - Cardiac Hx Hypertension: Yes - Pulmonary Hx Chronic Obstructive Pulmonary Disease (COPD): Yes - Neurological Hx Neurological Disorder: No - HEENT Hx HEENT Disorder: Yes (eyeglasses) - Renal Hx Renal Disorder: No - Endocrine/Metabolic Hx Hypothyroidism: Yes - Hematological/Oncological Hx Cancer: Yes (brain lesions) - Integumentary Other/Comment: right mid back thoracenthesis dressing dry and intact - Musculoskeletal/Rheumatological Hx Falls: Yes - Gastrointestinal Hx Gastrointestinal Disorders: No - Genitourinary/Gynecological Hx Reproductive Disorders: No - Psychiatric Hx Depression: No Hx Emotional Abuse: No Hx Physical Abuse: No Hx Substance Use: No - Past Surgical History Past Surgical History: No Previous - Surgical History Other/Comment: Throat and Lung Bx. Right Chest Wall Port placement - Anesthesia Hx Anesthesia: Yes Hx Anesthesia Reactions: No Hx Malignant Hyperthermia: No - Suicidal Assessment Feels Threatened In Home Enviroment: No <Christine Blandon - Last Filed: 11/23/17 22:42> Family/Social History - Physician Review Nursing Documentation Reviewed: Yes Family/Social History: Unknown Family HX Smoking Status: Former Smoker Hx Alcohol Use: Yes (social) Hx Substance Use: No <Christine Blandon - Last Filed: 11/23/17 22:42> Allergies/Home Meds <Christine Blandon - Last Filed: 11/23/17 22:42> <Rosalino Pedro - Last Filed: 11/25/17 11:36> Allergies/Adverse Reactions: Allergies No Known Allergies Allergy (Verified 11/23/17 18:39) Home Medications: Home Meds Medication Instructions Recorded Confirmed Clonazepam [Klonopin] 0.5 mg PO DAILY PRN 07/31/17 11/23/17 Tiotropium [Spiriva] 18 mcg IH DAILY 07/31/17 11/23/17 Levothyroxine [Synthroid] 100 mcg PO DAILY 08/01/17 11/23/17 Review of Systems - Review of Systems Constitutional: absent: Fatigue, Fevers Respiratory: absent: SOB, Cough Cardiovascular: absent: Chest Pain, Palpitations Gastrointestinal: Abdominal Pain. absent: Nausea, Vomiting Genitourinary Female: absent: Dysuria Musculoskeletal: Arthralgias, Back Pain. absent: Neck Pain Skin: absent: Rash, Pruritis Neurological: absent: Headache, Dizziness Psychiatric: absent: Anxiety, Depression <Christine Blandon - Last Filed: 11/23/17 22:42> - Physician Review All systems were reviewed & negative as marked: Yes <Rosalino Pedro - Last Filed: 11/25/17 11:36> Physical Exam - Systems Exam Head: Present: Atraumatic Pupils: Present: PERRL Extroacular Muscles: Present: EOMI Mouth: Present: Moist Mucous Membranes Neck: Present: Normal Range of Motion. No: MIDLINE TENDERNESS, Paraspinal Tenderness Respiratory/Chest: Present: Clear to Auscultation, Good Air Exchange. No: Respiratory Distress, Accessory Muscle Use, Wheezes, Rales, Retracting Cardiovascular: Present: Regular Rate and Rhythm. No: Murmurs Abdomen: Present: Tenderness (minimal lower abdominal tenderness, pelvic tende rness), Normal Bowel Sounds. No: Distention, Peritoneal Signs Back: Present: Paraspinal Tenderness Upper Extremity: Present: Normal ROM Lower Extremity: Present: NORMAL PULSES, Tenderness (right ankle + edema and ecchymosis noted over lateral malleolus; no dorsal foot tenderness. sensation and distal pulses intact; cap refill<2. pelvis stable. + bilateral hip tenderness; no edema. no ttp over knees or thighs bilaterally. ), Swelling, Neurovascularly Intact, Capillary Refill < 2 s. No: CALF TENDERNESS, Normal ROM Neurological: Present: GCS=15, Speech Normal, Normal Sensory Function Skin: Present: Warm, Dry, Normal Color Psychiatric: Present: Alert, Oriented x 3 <Christine Blandon - Last Filed: 11/23/17 22:42> Vital Signs Reviewed: Yes Vital Signs Temp Pulse Resp BP Pulse Ox 11/23/17 14:35 98.4 F 78 16 111/68 99 Temperature: Afebrile Blood Pressure: Normal Pulse: Regular Respiratory Rate: Normal <Rosalino Pedro - Last Filed: 11/25/17 11:36> Medical Decision Making ED Course and Treatment: 11/23/17 13:04 62yr old female presents today s/p fall. pt was discharged from TCU yesterday a nd has had 2 falls since discharge. pt c/o right ankle, bilateral hip pain and low back and abdomen/pelvic pain. EKG normal sinus rhythm at 61 bpm normal axis no ST elevations QTC 312 xray right ankle + fracture distal fibula cxr: wnl bilateral hip xrays; no fx head ct: Unremarkable. No hydrocephalus. CALVARIUM: Unremarkable. PARANASAL SINUSES: Unremarkable as visualized. No significant inflammatory changes. MASTOID AIR CELLS: Unremarkable as visualized. No inflammatory changes. OTHER FINDINGS: None. IMPRESSION: No change in metastatic disease. Large cystic lesion in the right frontal lobe measuring 4.7 cm. No evidence of acute hemorrhage cspine ct: FINDINGS: VERTEBRAE: No fracture. . No destructive bony lesion. Reversal of the normal lordotic curvature DISCS/SPINAL CANAL/NEURAL FORAMINA: No significant central canal or neural foraminal stenosis. Disc degeneration with left-sided foraminal stenosis at C3-4 and C4-5 and C5-6. PARASPINAL SOFT TISSUES: There is a pretracheal soft tissue mass consistent with adenopathy measuring 2 x 4 cm. This was evaluated recently with a chest CT. OTHER FINDINGS: None. IMPRESSION: No acute findings abd/pelvis ct: FINDINGS: LOWER THORAX: Right lower lobe lung mass and right hilar mass evaluated previously LIVER: Unremarkable. No gross lesion or ductal dilatation. GALLBLADDER AND BILE DUCTS: Unremarkable. PANCREAS: Unremarkable. No gross lesion or ductal dilatation. SPLEEN: Unremarkable. ADRENALS: Unremarkable. No mass. KIDNEYS AND URETERS: Unremarkable. No hydronephrosis. No solid mass. VASCULATURE: Unremarkable. No aortic aneurysm. BOWEL: There is moderate fecal retention. There is also debris in the stomach. There is fecalization of small bowel suspicious for small intestinal bacterial overgrowth APPENDIX: Unremarkable. Normal appendix. PERITONEUM: Unremarkable. No free fluid. No free air. LYMPH NODES: Unremarkable. No enlarged lymph nodes. BLADDER: Unremarkable. REPRODUCTIVE: Unremarkable. BONES: No acute fracture. OTHER FINDINGS: None. IMPRESSION: Moderate fecal retention. No acute intra-abdominal findings cbc; wnl cmpwnl trop; wnl CPK; 1023 pt placed in short leg posterior splint. case discussed with dr. shook who will see patient tomorrow. pt given NS iv bolus for Rhabdo. Case discussed with Dr. Keyes accepts admission. Will place the patient on remote telemetry as the cause of the fall is unknown consider syncope. all aspects of this case were discussed the attending of record. Impression: Syncope, ankle fracture Admit to remote telemetry - RAD Interpretation Radiology Orders: 11/23/17 12:25 HEAD W/O CONTRAST [CT] Stat CHEST PORTABLE [RAD] Stat 11/23/17 12:26 ANKLE RIGHT 3 VIEWS ROUTINE [RAD] Stat Hip Bilateral [HIP MIN 5V W/ PELVIS RAFITA] [RAD] Stat 11/23/17 12:27 ABD & PELVIS W/O PO OR IV CONT [CT] Stat <Christine Blandon T - Last Filed: 11/23/17 22:42> - Lab Interpretations Lab Results: 11/23/17 13:15 11/23/17 13:15 Lab Results 11/23/17 13:30: Urine Color Yellow, Urine Appearance Sl cloudy, Urine pH 7.5, Ur Specific [place] 1.015, Urine Protein Negative, Urine Glucose (UA) Negative, Urine Ketones Negative, Urine Blood Trace-intact H, Urine Nitrate Negative, Urine Bilirubin Negative, Urine Urobilinogen 0.2, Ur Leukocyte Esterase Small H, Urine RBC 0 - 2, Urine WBC 1 - 3, Ur Epithelial Cells 1 - 3, Urine Bacteria Mod 11/23/17 13:15: PT 11.4, INR 0.99, APTT 25.2 11/23/17 13:15: WBC 10.3, RBC 3.25 L, Hgb 10.4 L, Hct 32.6 L, MCV 100.3, MCH 32.0, MCHC 31.9, RDW 13.5, Plt Count 150, MPV 8.5, Gran % 85.0 H, Lymph % (Auto) 6.7 L, Stearns % (Auto) 7.8 H, Eos % (Auto) 0.5 L, Baso % (Auto) 0.0, Gran # 8.77 H, Lymph # (Auto) 0.7 L, Stearns # (Auto) 0.8 H, Eos # (Auto) 0.1, Baso # (Auto) 0.00 11/23/17 13:15: Sodium 134, Potassium 4.0, Chloride 99, Carbon Dioxide 28, Anion Gap 11, BUN 18, Creatinine 0.7, Est GFR ( Amer) > 60, Est GFR (Non-Af Amer) > 60, Random Glucose 96, Calcium 8.8, Total Bilirubin 0.6, AST 24, ALT 31, Alkaline Phosphatase 59, Lactate Dehydrogenase 1023 H, Total Creatine Kinase 33 L, Troponin I < 0.01, Total Protein 6.4, Albumin 3.7, Globulin 2.7, Albumin/Globulin Ratio 1.4 - RAD Interpretation Radiology Orders: 11/23/17 12:25 HEAD W/O CONTRAST [CT] Stat CHEST PORTABLE [RAD] Stat 11/23/17 12:26 ANKLE RIGHT 3 VIEWS ROUTINE [RAD] Stat Hip Bilateral [HIP MIN 5V W/ PELVIS RAFITA] [RAD] Stat 11/23/17 12:27 ABD & PELVIS W/O PO OR IV CONT [CT] Stat 11/23/17 12:58 CERVICAL SPINE W/O CONTRAST [CT] Stat Cigarette Examiner: Radiologist - EKG Interpretation Interpreted by ED Physician: Yes Type: 12 lead EKG - Medication Orders Current Medication Orders: Amiodarone HCl (Cordarone) 200 mg PO DAILY J[facility]OME Atorvastatin Calcium (Lipitor) 40 mg PO DIN JEROME Benzonatate (Tessalon Perles) 200 mg PO TID JEROME Clonazepam (Klonopin) 0.5 mg PO DAILY PRN; Protocol PRN Reason: Anxiety Ergocalciferol (Drisdol 50,000 Intl Units Cap) 1 cap PO Q7D [facility] Escitalopram Oxalate (Lexapro) 10 mg PO DAILY [facility] Levalbuterol HCl (Xopenex) 0.63 mg IH [id number] [facility] Levothyroxine Sodium (Synthroid) 100 mcg PO DAILY [facility] Metoprolol Succinate (Toprol Xl) 50 mg PO DAILY [facility] Oxycodone/Acetaminophen (Percocet 5/325 Mg Tab) 1 tab PO Q6H PRN PRN Reason: Pain, moderate (4-7) Stop: 11/26/17 15:59 Tiotropium [place] (Spiriva) 18 mcg IH DAILY JEROME Discontinued Medications Sodium Chloride (Sodium Chloride 0.9%) 1,000 mls @ 999 mls/hr IV .Q1H1M STA Stop: 11/23/17 15:56 Last Admin: 11/23/17 15:37 Dose: 999 mls/hr eMAR Start Stop Document 11/23/17 15:37 EQ (Rec: 11/23/17 15:37 EQ [id number]) Intravenous Solution Start Date 11/23/17 Start Time 15:37 <Rosalino Pedro - Last Filed: 11/25/17 11:36> Procedures - Splinting Location: right ankle Hand-Made Type: fiberglass Splint: short leg posterior splint Pre-Proc Neuro Vasc Exam: normal Post-Proc Neuro Vasc Exam: normal <Christine Blandon - Last Filed: 11/23/17 22:42> - PA / [employer]ENDER / Resident Statement / has reviewed & agrees with the documentation as recorded. <Rosalino Pedro - Last Filed: 11/25/17 11:36> Disposition/Present on Arrival - Present on Arrival Any Indicators Present on Arrival: No History of DVT/PE: No History of Uncontrolled Diabetes: No Urinary Catheter: No History of Decub. Ulcer: No History Surgical Site Infection Following: None - Disposition Have Diagnosis and Disposition been Completed?: Yes Disposition Time: 15:30 <Christine Blandon - Last Filed: 11/23/17 22:42> <Rosalino Pedro - Last Filed: 11/25/17 11:36> - Disposition Diagnosis: Fibula fracture, Rhabdomyolysis, Syncope Disposition: HOSPITALIZED Patient Problems: Current Active Problems Problem Status Onset Fibula fracture Acute Rhabdomyolysis Acute Syncope Acute Debility Acute Condition: FAIR
[2017-11-23 13:34] LABS: EOS # 0.1 (0.0-0.7); EOS % 0.5 % (1.5-5.0); GRAN # 8.77 (1.4-6.5); HEMOGLOBIN 10.4 g/dL (12.0-16.0); LYMPH # 0.7 (1.2-3.4); LYMPH % 6.7 % (22.0-35.0); MEAN CELL VOLUME 100.3 fl (80.0-105.0); MEAN CORPUSCULAR HGB CONC 31.9 g/dl (31.0-37.0); MEAN PLATELET VOLUME 8.5 fl (7.0-11.0); MONO # 0.8 (0.1-0.6); MONO % 7.8 % (1.0-6.0); RBC 3.25 10^6/uL (3.5-6.1); RED CELL DISTRIBUTION WIDTH 13.5 % (11.5-14.5); WHITE BLOOD COUNT 10.3 10^3/ul (4.5-11.0)
[2017-11-23 13:35] LABS: PH,URINE 7.5 (4.7-8.0); URINE APPEARANCE SL CLOUDY (CLEAR); URINE BILIRUBIN NEGATIVE (NEGATIVE); URINE BLOOD TRACE-INTACT (NEGATIVE); URINE COLOR YELLOW (YELLOW); URINE GLUCOSE (UA) NEGATIVE (NEGATIVE); URINE LEUKOCYTE ESTERASE SMALL Leu/uL (NEGATIVE); URINE PROTEIN NEGATIVE mg/dL (<30 mg/dL); URINE UROBILINOGEN 0.2 E.U./dL (<1 E.U./dL)
[2017-11-23 13:43] LABS: URINE BACTERIA MOD (NEG); URINE RBC 0 - 2 /hpf (0-2)
[2017-11-23 13:43] LABS: INR 0.99; PARTIAL THROMBOPLASTIN TIME 25.2 Seconds (25.1-36.5); PROTHROMBIN TIME 11.4 SECONDS (9.4-12.5)
--- NOTE | 2017-11-23 13:56 | CT ---
Date of service: 11/23/2017 PROCEDURE: CT HEAD WITHOUT CONTRAST. HISTORY: fall COMPARISON: 11/08/2017 TECHNIQUE: Axial computed tomography images were obtained through the head/brain without intravenous contrast. Radiation dose: Total exam DLP = 808 mGy-cm. This CT exam was performed using one or more of the following dose reduction techniques: Automated exposure control, adjustment of the mA and/or kV according to patient size, and/or use of iterative reconstruction technique. FINDINGS: HEMORRHAGE: Previously there is a hemorrhagic component to the left frontal lesion. This hemorrhage has decreased. There are no new hemorrhages. BRAIN: There is a large cystic mass in the right frontal lobe measuring 4.7 cm. Multiple hypodense lesions are seen in both cerebral hemispheres showing no significant change. VENTRICLES: Unremarkable. No hydrocephalus. CALVARIUM: Unremarkable. PARANASAL SINUSES: Unremarkable as visualized. No significant inflammatory changes. MASTOID AIR CELLS: Unremarkable as visualized. No inflammatory changes. OTHER FINDINGS: None. IMPRESSION: No change in metastatic disease. Large cystic lesion in the right frontal lobe measuring 4.7 cm. No evidence of acute hemorrhage
[2017-11-23 13:57] LABS: ALB/GLOB RATIO 1.4 (1.1-1.8); ALBUMIN 3.7 g/dL (3.0-4.8); ALT/SGPT 31 U/L (7-56); AST/SGOT 24 U/L (14-36); BLOOD UREA NITROGEN 18 mg/dL (7-21); CALCIUM 8.8 mg/dL (8.4-10.5); GFR NON-AFRICAN AMERICAN > 60; TROPONIN I < 0.01 ng/mL
--- NOTE | 2017-11-23 14:31 | CT ---
Date of service: 11/23/2017 PROCEDURE: CT Cervical Spine without contrast HISTORY: fall COMPARISON: None available. TECHNIQUE: Axial computed tomography images were obtained of the cervical spine without the use of intravenous contrast. Coronal and sagittal reformatted images were created and reviewed. Radiation dose: Total exam DLP = 667 mGy-cm. This CT exam was performed using one or more of the following dose reduction techniques: Automated exposure control, adjustment of the mA and/or kV according to patient size, and/or use of iterative reconstruction technique. FINDINGS: VERTEBRAE: No fracture. . No destructive bony lesion. Reversal of the normal lordotic curvature DISCS/SPINAL CANAL/NEURAL FORAMINA: No significant central canal or neural foraminal stenosis. Disc degeneration with left-sided foraminal stenosis at C3-4 and C4-5 and C5-6. PARASPINAL SOFT TISSUES: There is a pretracheal soft tissue mass consistent with adenopathy measuring 2 x 4 cm. This was evaluated recently with a chest CT. OTHER FINDINGS: None. IMPRESSION: No acute findings
--- NOTE | 2017-11-23 14:35 | CT ---
Date of service: 11/23/2017 PROCEDURE: CT Abdomen and Pelvis without intravenous contrast HISTORY: back pain, lower abdominal/pelvic pain s/p fall COMPARISON: 11/09/2017 TECHNIQUE: Without contrast.. Contrast dose: Radiation dose: Total exam DLP = 1073 mGy-cm. This CT exam was performed using one or more of the following dose reduction techniques: Automated exposure control, adjustment of the mA and/or kV according to patient size, and/or use of iterative reconstruction technique. FINDINGS: LOWER THORAX: Right lower lobe lung mass and right hilar mass evaluated previously LIVER: Unremarkable. No gross lesion or ductal dilatation. GALLBLADDER AND BILE DUCTS: Unremarkable. PANCREAS: Unremarkable. No gross lesion or ductal dilatation. SPLEEN: Unremarkable. ADRENALS: Unremarkable. No mass. KIDNEYS AND URETERS: Unremarkable. No hydronephrosis. No solid mass. VASCULATURE: Unremarkable. No aortic aneurysm. BOWEL: There is moderate fecal retention. There is also debris in the stomach. There is fecalization of small bowel suspicious for small intestinal bacterial overgrowth APPENDIX: Unremarkable. Normal appendix. PERITONEUM: Unremarkable. No free fluid. No free air. LYMPH NODES: Unremarkable. No enlarged lymph nodes. BLADDER: Unremarkable. REPRODUCTIVE: Unremarkable. BONES: No acute fracture. OTHER FINDINGS: None. IMPRESSION: Moderate fecal retention. No acute intra-abdominal findings
--- NOTE | 2017-11-23 14:51 | RAD ---
Date of service: 11/23/2017 HISTORY: fall COMPARISON: 10/29/2017. FINDINGS: The left MediPort terminates in the SVC. LUNGS: The right lung is well inflated and clear. There is linear atelectasis/scarring in the left lower lobe. PLEURA: No significant pleural effusion identified, no pneumothorax apparent. CARDIOVASCULAR: Normal. OSSEOUS STRUCTURES: No significant abnormalities. VISUALIZED UPPER ABDOMEN: Normal. OTHER FINDINGS: There is chronic elevation of the left hemidiaphragm. IMPRESSION: No active pulmonary disease.
[2017-11-23] MEDS ORDERED: Sodium Chloride 0.9% 1,000 ML IV STA (14:56)
--- NOTE | 2017-11-23 15:04 | RAD ---
Date of service: 11/23/2017 PROCEDURE: Right Ankle Radiographs. HISTORY: ankle pain COMPARISON: None FINDINGS: BONES: There is an acute nondisplaced fracture in the lateral malleolus. There is diffuse bone demineralization. There is no evidence of bone destruction. JOINTS: Normal. No osteoarthritis. Ankle mortise maintained. Talar dome intact SOFT TISSUES: Moderate lateral soft tissue swelling. OTHER FINDINGS: None. IMPRESSION: Acute nondisplaced fracture in the lateral malleolus and moderate lateral soft tissue swelling.
--- NOTE | 2017-11-23 15:05 | RAD ---
PROCEDURE: Radiographs of the pelvis and bilateral hips HISTORY: bilateral hip pain COMPARISON: None. FINDINGS: BONES: The pelvic ring is intact. There is diffuse bone demineralization. There is no acute fracture or bone destruction. JOINTS: The joint spaces are preserved. SOFT TISSUES: Normal. OTHER FINDINGS: None. IMPRESSION: No acute displaced fracture or dislocation.
--- NOTE | 2017-11-23 15:25 | CARD ---
APPROVED REPORT Date of service: 11/23/2017 EKG Measurement Heart [id number] <Conclusion> Normal sinus rhythm Nonspecific ST and T wave abnormality Abnormal ECG
--- NOTE | 2017-11-23 15:43 | CP.PCM.HP ---
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 Christie and radiotherapy with Dr Ivon Matias), hypothyroidism, former tobacco abuse, chronic upper extremity tremor, A. fib on Xarelto who presents to the ED post fall at home. She was discharged from TCU yesterday. She states she was walking to the bathroom when her right leg "gave way" and her right foot twisted causing her to fall to the ground on her right side. She denies preceding symptoms such as nausea, vomiting, syncope, dizziness, lightheadedness. She was on the ground for 4 hours until her son came home. She has stage 4 small cell lung cancer and was recently found to have metastasis to the brain - she recently completed who brain radiation with Dr Ivon Matias. She is supposed to start another round of chemotherapy with Dr Christie this Monday. 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 Christie and radiotherapy with Dr Ivon Matias), hypothyr oidism, former tobacco abuse, chronic upper extremity tremor, A. fib on Xarelto PSH: ORIF left hand Meds: As per APR Allergies: NKDA SHx: > [id number], quit last year after diagnosis of cancer; EtOH socially; no illicit drug use: Ambulates without assistance FHx: Mother, diabetes. Father and brother, cancer (unsure which type) Present on Admission - Present on Admission Any Indicators Present on Admission: No Review of Systems - Constitutional Constitutional: absent: Chills, Fever - EENT Eyes: absent: Change in Vision - Cardiovascular Cardiovascular: absent: Chest Pain - Respiratory Respiratory: absent: Dyspnea - Gastrointestinal Gastrointestinal: absent: Abdominal Pain, Nausea, Vomiting - Genitourinary Genitourinary: absent: Dysuria - Musculoskeletal Musculoskeletal: Limited Range of Motion - Integumentary Integumentary: absent: Bleeding Lesions Past Patient History - Infectious Disease Hx of Infectious Diseases: None - Past Medical History & Family History Past Medical History?: Yes - Past Social History Smoking Status: Former Smoker - CARDIAC Hx Hypertension: Yes - PULMONARY Hx Chronic Obstructive Pulmonary Disease (COPD): Yes - NEUROLOGICAL Hx Neurological Disorder: No - HEENT Hx HEENT Problems: Yes (eyeglasses) - RENAL Hx Chronic Kidney Disease: No - ENDOCRINE/METABOLIC Hx Hypothyroidism: Yes - HEMATOLOGICAL/ONCOLOGICAL Hx Cancer: Yes (brain lesions) - INTEGUMENTARY Other/Comment: right mid back thoracenthesis dressing dry and intact - MUSCULOSKELETAL/RHEUMATOLOGICAL Hx Falls: Yes - GASTROINTESTINAL Hx Gastrointestinal Disorders: No - GENITOURINARY/GYNECOLOGICAL Hx Reproductive Disorders: No - PSYCHIATRIC Hx Depression: No Hx Emotional Abuse: No Hx Physical Abuse: No Hx Substance Use: No - SURGICAL HISTORY Other/Comment: Throat and Lung Bx. Right Chest Wall Port placement - ANESTHESIA Hx Anesthesia: Yes Hx Anesthesia Reactions: No Hx Malignant Hyperthermia: No Meds Allergies/Adverse Reactions: Allergies Allergy/AdvReac Type Severity Reaction Status Date / Time No Known Allergies Allergy Verified 04/01/16 11:52 Physical Exam - Additional Findings Additional findings: - Constitutional Appears: Well, Non-toxic, No Acute Distress - Head Exam Head Exam: NORMAL INSPECTION, NORMOCEPHALIC Additional comments: shaven head - Eye Exam Eye Exam: EOMI, Normal appearance, PERRL - ENT Exam ENT Exam: Mucous Membranes Moist - Neck Exam Neck exam: Positive for: Normal Inspection - Respiratory Exam Respiratory Exam: NORMAL BREATHING PATTERN. absent: Rales, Rhonchi, Wheezes, R espiratory Distress - Cardiovascular Exam Cardiovascular Exam: RRR, +S1, +S2 - GI/Abdominal Exam GI & Abdominal Exam: Soft. absent: Distended, Tenderness - Extremities Exam Extremities exam: right ankle swelling at lateral malleolus and tender to palpation with limited range of motion; otherwise normal extremity exam - Back Exam Back exam: NORMAL INSPECTION - Neurological Exam Neurological exam: Alert, CN II-XII Intact, Oriented x3, Reflexes Normal - Psychiatric Exam Psychiatric exam: Normal Mood - Skin Skin Exam: Warm Results - Vital Signs Recent Vital Signs: Last Vital Signs Temp 98.4 F 11/23/17 14:35 Pulse 78 11/23/17 14:35 Resp 16 11/23/17 14:35 BP 111/68 11/23/17 14:35 Pulse Ox 99 11/23/17 14:35 - Labs Result Diagrams: 11/23/17 13:15 11/23/17 13:15 Labs: Laboratory Results - last 24 hr 11/23/17 11/23/17 11/23/17 13:15 13:15 13:15 WBC 10.3 RBC 3.25 L Hgb 10.4 L Hct 32.6 L MCV 100.3 MCH 32.0 MCHC 31.9 RDW 13.5 Plt Count 150 MPV 8.5 Gran % 85.0 H Lymph % (Auto) 6.7 L [place] % (Auto) 7.8 H Eos % (Auto) 0.5 L Baso % (Auto) 0.0 Gran # 8.77 H Lymph # (Auto) 0.7 L [place] # (Auto) 0.8 H Eos # (Auto) 0.1 Baso # (Auto) 0.00 PT 11.4 INR 0.99 APTT 25.2 Sodium 134 Potassium 4.0 Chloride 99 Carbon Dioxide 28 Anion Gap 11 BUN 18 Creatinine 0.7 Est GFR ( Amer) > 60 Est GFR (Non-Af Amer) > 60 Random Glucose 96 Calcium 8.8 Total Bilirubin 0.6 AST 24 ALT 31 Alkaline Phosphatase 59 Lactate Dehydrogenase 1023 H Total Creatine Kinase 33 L Troponin I < 0.01 Total Protein 6.4 Albumin 3.7 Globulin 2.7 Albumin/Globulin Ratio 1.4 Urine Color Urine Appearance Urine pH Ur Specific [place] Urine Protein Urine Glucose (UA) Urine Ketones Urine Blood Urine Nitrate Urine Bilirubin Urine Urobilinogen Ur Leukocyte Esterase Urine RBC Urine WBC Ur Epithelial Cells Urine Bacteria 11/23/17 13:30 WBC RBC Hgb Hct MCV MCH MCHC RDW Plt Count MPV Gran % Lymph % (Auto) [place] % (Auto) Eos % (Auto) Baso % (Auto) Gran # Lymph # (Auto) [place] # (Auto) Eos # (Auto) Baso # (Auto) PT INR APTT Sodium Potassium Chloride Carbon Dioxide Anion Gap BUN Creatinine Est GFR ( Amer) Est GFR (Non-Af Amer) Random Glucose Calcium Total Bilirubin AST ALT Alkaline Phosphatase Lactate Dehydrogenase Total Creatine Kinase Troponin I Total Protein Albumin Globulin Albumin/Globulin Ratio Urine Color Yellow Urine Appearance Sl cloudy Urine pH 7.5 Ur Specific [place] 1.015 Urine Protein Negative Urine Glucose (UA) Negative Urine Ketones Negative Urine Blood Trace-intact H Urine Nitrate Negative Urine Bilirubin Negative Urine Urobilinogen 0.2 Ur Leukocyte Esterase Small H Urine RBC 0 - 2 Urine WBC 1 - 3 Ur Epithelial Cells 1 - 3 Urine Bacteria Mod Assessment & Plan - Assessment and Plan (Free Text) Plan: Mrs Claudio is a 62 year old female with a PMHx of 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 Christie and radiotherapy with Dr Ivon Matias), hypothyroidism, COPD, former tobacco abuse, chronic upper extremity tremor, A. fib on Xarelto who presents to the ED with a right ankle fracture after fall: Lateral Malleolus Fracture - Right Ankle -Consult ortho Dr Toscano -Fall precautions high protocol -Percocet 5/325mg po q6h prn for pain -CT cervical spine w/o contrast: No acute findings -XRAY Bilateral Hip and Pelvis: No acute displaced fracture or dislocation. -XRAY Right ankle: Acute nondisplaced fracture in the lateral malleolus and moderate lateral soft tissue swelling. Stage IV Small Cell Lung Cancer w/ Mets to Brain -Recently completed whole brain radiation; to start another round of chemotherapy 11/[address] Christie -Consult Heme/Onc, Dr Christie -Seizure precautions, HOB 30 degrees -XRAY CXR: No active pulmonary disease COPD -Xopenox 0.63mg ih q6h -Tiotropium 18mcg ih qd A. fib -Consult cardio, Dr Mortensen -Continue amiodarone 200mg po qd -Continue home metoprolol succinate XL 50mg po qd -Hold anticoagulation (Xarelto) until ortho decides if patient to go for surgery or not -Remote telemetry Hypothyroidism -Continue Synthroid home dose 100mg po qd Depression/Anxiety -Continue home lexapro 10mg po qd -Continue home klonopin 0.5mg po qd prn for anxiety Anemia -Anemia of chronic disease secondary to malignancy -Has been on outpatient Procrit Low Vitamin D -Cholecalciferol 2,000 IU po qd -Ergocalciferol 50,000 IU po q7d PPX -Protonix for GI PPX -SCDs for DVT PPX -Regular diet Case discussed with Dr Keyes
[2017-11-23] MEDS ORDERED: Oxycodone/Acetaminophen 5/325 mg Tab PO PRN (15:58)
[2017-11-23] MEDS ORDERED: Ergocalciferol 50,000 Intl Units Cap PO SCH (16:00)
[2017-11-23] MEDS: Metoprolol Succinate 50 mg XL Tab PO SCH (17:23)
[2017-11-23] MEDS: POLYETHYLENE GLYCOL 3350 17 GM/Dose PACKET PO SCH ×2 (18:18→18:20)
[2017-11-23] MEDS: Levothyroxine 100 MCG TAB PO SCH (18:18)
[2017-11-23] MEDS: Levalbuterol 0.63 MG/3 ML Inhal Soln UD IH SCH (19:52)
[2017-11-23] MEDS ORDERED: Enoxaparin 40 mg Syringe SC STA (20:09)
[2017-11-23] MEDS: Lactated Ringer's 1,000 ML IV SCH (22:34)
[2017-11-23] MEDS ORDERED: Pneumococcal 23-Valent Vaccine IM ONE (23:13)
[2017-11-23] MEDS ORDERED: Influenza Vaccine 60 mcg/0.5 mL SYR (4YR UP) IM ONE (23:13)
[2017-11-24] MEDS: Levalbuterol 0.63 MG/3 ML Inhal Soln UD IH SCH ×4 (01:13→19:20)
[2017-11-24 07:13] LABS: EOS % 0.5 % (1.5-5.0); GRAN # 6.06 (1.4-6.5); GRAN % 80.1 % (50.0-68.0); HEMOGLOBIN 9.4 g/dL (12.0-16.0); LYMPH # 0.8 (1.2-3.4); LYMPH % 10.3 % (22.0-35.0); MEAN CELL VOLUME 100.3 fl (80.0-105.0); MEAN CORPUSCULAR HEMOGLOBIN 32.1 pg (25.0-35.0); MEAN PLATELET VOLUME 8.9 fl (7.0-11.0); MONO # 0.7 (0.1-0.6); MONO % 9.1 % (1.0-6.0); RBC 2.93 10^6/uL (3.5-6.1); RED CELL DISTRIBUTION WIDTH 13.6 % (11.5-14.5); WHITE BLOOD COUNT 7.6 10^3/ul (4.5-11.0)
--- NOTE | 2017-11-24 07:13 | HP ---
DATE OF EXAM: 11/23/2017 HISTORY OF PRESENT ILLNESS: The patient is a 62-year-old female who was recently discharged from Transitional Care Unit presented to the [facility] Emergency Room after the patient sustained a fall and the patient states that she tripped and fell at home and developed right ankle, right leg pain and swelling and difficulty walking. The patient was brought to the emergency room by the EMS squad. The patient's son is present at the bedside. History is obtained through the patient's son, the patient's ER chart, [facility] records and past medical history and previous hospitalization. REVIEW OF SYSTEMS: The patient's 13-system review was done, pertinent positive for fall, positive for right ankle pain and difficulty walking. ALLERGIES: NONE. CODE STATUS: Full code. LIVING WILL ADVANCE DIRECTIVE: None. HEIGHT: 5 feet 6 inches. WEIGHT: 177. BMI: 29. SOCIAL HISTORY: Positive for former smoking. Denies alcohol. Denies communicable transmissible disease. OCCUPATIONAL HISTORY: Disabled. FAMILY HISTORY: Not available. MENSTRUAL HISTORY: Postmenopausal. PAST MEDICAL AND SURGICAL HISTORY: History of nicotine dependence in the past, history of chronic obstructive pulmonary disease, history of Xarelto-dependent atrial fibrillation, history of pain syndrome of malignancy, history of atrial fibrillation, history of hypothyroidism, history of depression, history of anxiety, history of upper extremity tremor, history of hypovitaminosis D, history of hyperlipidemia, history of constipation, history of gastroesophageal reflux, history of stage IV small cell lung carcinoma with brain metastasis and locally intrathoracic progressive disease, history of episodic confusion and encephalopathy, history of gait dysfunction, history of multiple ring-enhancing brain metastasis of the lung carcinoma with vasogenic edema and midline shift, history of anemia, history of chemotherapy treatment, history of whole brain radiation, history of deconditioning, history of former nicotine dependence. PHYSICAL EXAMINATION: GENERAL: The patient is seen in stretcher #19 in the emergency room. The patient's son is at bedside. The patient is seen lying in the bed. VITAL SIGNS: T max is 98.3; heart rate 78, 68, 66, 66; blood pressure 137/75, 111/68; respirations 16; O2 sat 93%-99%. HEENT: Head: Normocephalic, atraumatic. HEENT examination shows pinkish pale conjunctivae. Dry oral mucosa. Positive alopecia. No neck rigidity. CHEST: Symmetrical. Positive upper chest Port-A-Cath. Kyphosis of the chest noted. LUNGS: Examination shows positive rhonchi, right upper lung field anteriorly. No rales, crackles or wheezing. CARDIOVASCULAR: S1, S2, regular rhythm. No audible murmur, gallop or rub at this time. ABDOMEN: Soft. Positive bowel sound. No palpable hepatosplenomegaly noted. GENITALIA: Female. RECTAL: Examination deferred. EXTREMITIES: Shows no pitting edema, no calf tenderness, susan Homans' sign of the left lower extremity, positive dressing and Julio C wrap of the right lower extremity noted. Gait examination could not be tested. The patient is seen lying in the bed. PSYCHIATRIC: Examination is positive for history of depression and anxiety and upper extremity tremors. DIAGNOSTICS: The patient's CBC shows a hemoglobin/hematocrit of 10.4/32.6, granulocytes 85. PT/PTT is normal. CMP is within normal limit. LDH is 1023. CPK is normal. Urinalysis, trace blood, small leukocyte, bacteria small. Cervical spine CAT scan was noted. Abdomen and pelvis CAT scan was noted. Hip x-rays, ankle x-rays, head CT, chest x-ray, EKG was reviewed. Ankle x-ray was positive for acute nondisplaced fracture of the lateral malleolus with diffuse bone demineralization and soft tissue swelling. The patient was evaluated in the emergency room by the physician purchasing administrative assistant, Christine. The patient was advised to be evaluated by the Orthopedics in admission. IMPRESSION: 1. Status post fall. 2. Gait dysfunction. 3. Acute nondisplaced right lateral malleolus fracture with soft tissue swelling. 4. Anemia of malignancy and chronic disease with granulocytosis. 5. Elevated LDH, etiology undetermined versus hemolysis. 6. Microscopic hematuria, pyuria, bacteriuria. 7. Constipation. 8. Pain syndrome of malignancy. 9. Chronic obstructive pulmonary disease. 10. Xarelto-dependent atrial fibrillation. 11. Hypothyroidism. 12. History of depression and upper extremity tremors. 13. Hypovitaminosis D. 14. Hyperlipidemia. 15. Cervical spine degenerative disc disease with foramen stenosis. 16. Pretracheal soft tissue mass consistent with adenopathy, 2.4 cm 17. Progressive right lower lobe lung mass and right hilar mass. 18. History of small-cell right-sided lung carcinoma with brain metastasis. 19. Moderate fecal retention and constipation with fecalization of the small bowel. 20. Pelvic bone diffuse bony demineralization. 21. Acute nondisplaced right ankle lateral malleolus fracture with diffuse bone demineralization and lateral soft tissue swelling. 22. Hemorrhagic metastasis of the left frontal lobe with decreasing hemorrhage. 23. A 4.7-cm large right frontal lobe cystic mass with multiple hypodense lesions of bilateral cerebral hemisphere. 24. Multiple brain metastatic lesions. 25. Left lower lobe linear atelectasis scarring. 26. Left upper chest Port-A-Cath placement. 27. Chronic left hemidiaphragm elevation. 28. History of atrial fibrillation. PLAN: At this time, the patient is to be admitted to [facility]. The patient will be consulted with Orthopedics, Cardiology and Hematology/Oncology. The patient will be ordered Colace 100 mg three times a day, amiodarone 200 mg daily, Drisdol 50,000 weekly, Klonopin 0.5 mg daily p.r.n. The patient is started on Ringer's lactate at 75 mL an hour, Lexapro 10 mg daily, Lipitor 40 mg daily, Lovenox 40 mg subcu daily, MiraLax 17 g twice a day. The patient is started on morphine 2 mg IV every 6 p.r.n. for pain, Protonix 40 mg daily, Spiriva 18 mcg daily, Synthroid 100 mcg daily, Tessalon Perles 200 three times a day, Toprol XL 50 mg daily, Tylenol p.r.n., vitamin D3 2000 International Units daily, Xopenex nebulizer treatment every 6 hours and Zofran 4 mg IV every 4 hours p.r.n. At present, the patient is seen in the stretcher #19 in the emergency room with the patient's son at bedside. The patient is alert, awake, responsive. The patient and the patient's son were updated and explained about the patient's admitting diagnosis, need for further diagnostic therapeutic intervention, need for Orthopedic, Cardiology, Hematology evaluation and recommendation and further management. At this time, all questions concerned answered to the patient and the patient's son satisfaction. The patient is awaiting for a bed on the floor. Dictated and electronically signed, not read. Loki Keyes MD
[2017-11-24 07:28] LABS: ALB/GLOB RATIO 1.2 (1.1-1.8); ALBUMIN 3.1 g/dL (3.0-4.8); ALT/SGPT 30 U/L (7-56); AST/SGOT 21 U/L (14-36); BILIRUBIN,DIRECT 0.1 mg/dL (0.0-0.4); BLOOD UREA NITROGEN 14 mg/dL (7-21); CALCIUM 8.5 mg/dL (8.4-10.5); GFR NON-AFRICAN AMERICAN > 60
[2017-11-24] MEDS ORDERED: Potassium Chloride 20 mEq ER Tab PO ONE (07:48)
[2017-11-24] MEDS ORDERED: Enoxaparin 40 mg Syringe SC SCH (10:00)
[2017-11-24] MEDS: Levothyroxine 100 MCG TAB PO SCH (10:24)
[2017-11-24] MEDS: Tiotropium 18 mcg Cap For Inhalation IH SCH (10:24)
[2017-11-24] MEDS: Pantoprazole 40 mg EC Tab PO SCH (10:25)
[2017-11-24] MEDS: POLYETHYLENE GLYCOL 3350 17 GM/Dose PACKET PO SCH ×3 (10:26→17:42)
[2017-11-24] MEDS: Morphine 2 mg/ml ISec IVP PRN (10:31)
[2017-11-24] MEDS: Lactated Ringer's 1,000 ML IV SCH ×2 (11:20→23:00)
[2017-11-24] MEDS: Metoprolol Succinate 50 mg XL Tab PO SCH (11:26)
[2017-11-24] MEDS: Cholecalciferol 1,000 INTLU TAB PO SCH (11:28)
--- NOTE | 2017-11-24 11:37 | CP.PCM.CON ---
History of Present Illness - History of Present Illness History of Present Illness: 62 year old female with a history of afib on anticoagulation, tremor, stage IV small cell lung cancer dx 02/2016, recent diagnosis of brain metastasis s/p WBRT, recently discharged from TCU admitted s/p fall. She reports she fell while coming from the bathroom. She did not trip but felt weak. She denies hitting her head. She is scheduled for salvage chemotherapy Monday but notes she is having difficulty at home alone. Overall, her cancer had progressed and we discussed chemotherapy vs. hospice. She would like to attempt salvage chemotherapy and possible immunotherapy in the future. Past medical history: afib on anticoagulation, tremor, stage IV small cell lung cancer Past surgical history: Portacath Family history: Denies hematologic and oncologic problems Social history: Former smoker Allergies: NKA Review of systems: All remaining review of systems including HEENT, cardiovascular, respiratory, gastrointestinal, genitourinary, musculoskeletal, dermatologic, neurologic, and psychiatric are negative unless mentioned in the HPI. Past Patient History - Infectious Disease Hx of Infectious Diseases: None - Past Medical History & Family History Past Medical History?: Yes - Past Social History Smoking Status: Former Smoker - CARDIAC Hx Hypertension: Yes - PULMONARY Hx Chronic Obstructive Pulmonary Disease (COPD): Yes - NEUROLOGICAL Hx Neurological Disorder: No - HEENT Hx HEENT Problems: Yes (eyeglasses) - RENAL Hx Chronic Kidney Disease: No - ENDOCRINE/METABOLIC Hx Hypothyroidism: Yes - HEMATOLOGICAL/ONCOLOGICAL Hx Cancer: Yes (brain lesions) - INTEGUMENTARY Other/Comment: right mid back thoracenthesis dressing dry and intact - MUSCULOSKELETAL/RHEUMATOLOGICAL Hx Falls: Yes - GASTROINTESTINAL Hx Gastrointestinal Disorders: No - GENITOURINARY/GYNECOLOGICAL Hx Reproductive Disorders: No - PSYCHIATRIC Hx Depression: No Hx Emotional Abuse: No Hx Physical Abuse: No Hx Substance Use: No - SURGICAL HISTORY Other/Comment: Throat and Lung Bx. Right Chest Wall Port placement - ANESTHESIA Hx Anesthesia: Yes Hx Anesthesia Reactions: No Hx Malignant Hyperthermia: No Meds Allergies/Adverse Reactions: Allergies Allergy/AdvReac Type Severity Reaction Status Date / Time No Known Allergies Allergy Verified 11/23/17 18:39 - Medications Medications: Current Medications Acetaminophen (Tylenol 325mg Tab) 650 mg PO Q6H PRN PRN Reason: Fever >100.4 F Amiodarone HCl (Cordarone) 200 mg PO DAILY [facility] Last Admin: 11/23/17 17:24 Dose: 200 mg Atorvastatin Calcium (Lipitor) 40 mg PO DIN [facility] Last Admin: 11/23/17 18:17 Dose: 40 mg Benzonatate (Tessalon Perles) 200 mg PO TID [facility] Last Admin: 11/23/17 18:17 Dose: 200 mg Cholecalciferol (Vitamin D) 2,000 intlu PO DAILY [facility] Clonazepam (Klonopin) 0.5 mg PO DAILY PRN; Protocol PRN Reason: Anxiety Docusate Sodium (Colace) 100 mg PO TID [facility] Last Admin: 11/24/17 10:24 Dose: 100 mg Enoxaparin Sodium (Lovenox) 40 mg SC DAILY [facility]; Protocol Last Admin: 11/24/17 10:25 Dose: 40 mg Ergocalciferol (Drisdol 50,000 Intl Units Cap) 1 cap PO Q7D [facility] Last Admin: 11/23/17 18:17 Dose: 1 cap Escitalopram Oxalate (Lexapro) 10 mg PO DAILY [facility] Last Admin: 11/24/17 10:24 Dose: 10 mg Lactated Ringer's (Lactated Ringer's) 1,000 mls @ 75 mls/hr IV .[id number] [facility] Stop: 11/26/17 14:54 Last Admin: 11/23/17 22:34 Dose: 75 mls/hr Levalbuterol HCl (Xopenex) 0.63 mg IH [id number] [facility] Last Admin: 11/24/17 08:00 Dose: 0.63 mg Levothyroxine Sodium (Synthroid) 100 mcg PO DAILY [facility] Last Admin: 11/24/17 10:24 Dose: 100 mcg Metoprolol Succinate (Toprol Xl) 50 mg PO DAILY [facility] Last Admin: 11/23/17 17:23 Dose: 50 mg Morphine Sulfate (Morphine) 2 mg IVP Q6H PRN PRN Reason: Pain, moderate (4-7) Last Admin: 11/24/17 10:31 Dose: 2 mg Ondansetron HCl (Zofran Inj) 4 mg IVP Q6H PRN PRN Reason: Nausea/Vomiting Pantoprazole Sodium (Protonix Ec Tab) 40 mg PO DAILY [facility] Last Admin: 11/24/17 10:25 Dose: 40 mg Polyethylene Glycol (Miralax) 17 gm PO BID [facility] Last Admin: 11/24/17 10:26 Dose: Not Given Tiotropium [place] (Spiriva) 18 mcg IH DAILY [facility] Last Admin: 11/24/17 10:24 Dose: 18 mcg Physical Exam - Head Exam Head Exam: ATRAUMATIC - Eye Exam Eye Exam: Normal appearance - ENT Exam ENT Exam: Mucous Membranes Dry - Respiratory Exam Respiratory Exam: NORMAL BREATHING PATTERN - Cardiovascular Exam Cardiovascular Exam: +S1, +S2 - GI/Abdominal Exam GI & Abdominal Exam: Normal Bowel Sounds - Extremities Exam Extremities exam: Positive for: pedal edema - Neurological Exam Neurological exam: Oriented x3 - Psychiatric Exam Psychiatric exam: Flat Affect, Normal Mood - Skin Skin Exam: Warm Results - Vital Signs Recent Vital Signs: Last Vital Signs Temp 98.1 F 11/24/17 06:00 Pulse 69 11/24/17 06:00 Resp 20 11/24/17 06:00 BP 107/72 11/24/17 06:00 Pulse Ox 91 L 11/24/17 06:00 - Labs Result Diagrams: 11/24/17 06:45 11/24/17 06:45 Labs: Laboratory Results - last 24 hr 11/23/17 11/23/17 11/23/17 13:15 13:15 13:15 WBC 10.3 RBC 3.25 L Hgb 10.4 L Hct 32.6 L MCV 100.3 MCH 32.0 MCHC 31.9 RDW 13.5 Plt Count 150 MPV 8.5 Gran % 85.0 H Lymph % (Auto) 6.[address] [place] % (Auto) 7.8 H Eos % (Auto) 0.5 L Baso % (Auto) 0.0 Gran # 8.77 H Lymph # (Auto) 0.[address] [place] # (Auto) 0.8 H Eos # (Auto) 0.1 Baso # (Auto) 0.00 PT 11.4 INR 0.99 APTT 25.2 Sodium 134 Potassium 4.0 Chloride 99 Carbon Dioxide 28 Anion Gap 11 BUN 18 Creatinine 0.7 Est GFR ( Amer) > 60 Est GFR (Non-Af Amer) > 60 Random Glucose 96 Calcium 8.8 Phosphorus Magnesium Total Bilirubin 0.6 Direct Bilirubin AST 24 ALT 31 Alkaline Phosphatase 59 Lactate Dehydrogenase 1023 H Total Creatine Kinase 33 L Troponin I < 0.01 Total Protein 6.4 Albumin 3.7 Globulin 2.7 Albumin/Globulin Ratio 1.4 Urine Color Urine Appearance Urine pH Ur Specific [place] Urine Protein Urine Glucose (UA) Urine Ketones Urine Blood Urine Nitrate Urine Bilirubin Urine Urobilinogen Ur Leukocyte Esterase Urine RBC Urine WBC Ur Epithelial Cells Urine Bacteria 11/23/17 11/23/17 11/24/17 13:15 13:30 06:45 WBC 7.6 D RBC 2.93 L Hgb 9.4 L Hct 29.4 L MCV 100.3 MCH 32.1 MCHC 32.0 RDW 13.6 Plt Count 132 MPV 8.9 Gran % 80.1 H Lymph % (Auto) 10.[address] [place] % (Auto) 9.1 H Eos % (Auto) 0.5 L Baso % (Auto) 0.0 Gran # 6.06 Lymph # (Auto) 0.[address] [place] # (Auto) 0.7 H Eos # (Auto) 0.0 Baso # (Auto) 0.00 PT INR APTT Sodium Potassium Chloride Carbon Dioxide Anion Gap BUN Creatinine Est GFR ( Amer) Est GFR (Non-Af Amer) Random Glucose Calcium Phosphorus 3.5 Magnesium 2.0 Total Bilirubin Direct Bilirubin AST ALT Alkaline Phosphatase Lactate Dehydrogenase Total Creatine Kinase Troponin I Total Protein Albumin Globulin Albumin/Globulin Ratio Urine Color Yellow Urine Appearance Sl cloudy Urine pH 7.5 Ur Specific [place] 1.015 Urine Protein Negative Urine Glucose (UA) Negative Urine Ketones Negative Urine Blood Trace-intact H Urine Nitrate Negative Urine Bilirubin Negative Urine Urobilinogen 0.2 Ur Leukocyte Esterase Small H Urine RBC 0 - 2 Urine WBC 1 - 3 Ur Epithelial Cells 1 - 3 Urine Bacteria Mod 11/24/17 06:45 WBC RBC Hgb Hct MCV MCH MCHC RDW Plt Count MPV Gran % Lymph % (Auto) [place] % (Auto) Eos % (Auto) Baso % (Auto) Gran # Lymph # (Auto) [place] # (Auto) Eos # (Auto) Baso # (Auto) PT INR APTT Sodium 135 Potassium 3.6 Chloride 102 Carbon Dioxide 28 Anion Gap 8 L BUN 14 Creatinine 0.7 Est GFR ( Amer) > 60 Est GFR (Non-Af Amer) > 60 Random Glucose 88 Calcium 8.5 Phosphorus 3.7 Magnesium 1.9 Total Bilirubin 0.7 Direct Bilirubin 0.1 AST 21 ALT 30 Alkaline Phosphatase 51 Lactate Dehydrogenase 919 H Total Creatine Kinase 26 L Troponin I Total Protein 5.6 L Albumin 3.1 Globulin 2.5 Albumin/Globulin Ratio 1.2 Urine Color Urine Appearance Urine pH Ur Specific [place] Urine Protein Urine Glucose (UA) Urine Ketones Urine Blood Urine Nitrate Urine Bilirubin Urine Urobilinogen Ur Leukocyte Esterase Urine RBC Urine WBC Ur Epithelial Cells Urine Bacteria Assessment & Plan (1) Debility Assessment and Plan: secondary to malignancy recent brain mets and whole brain radiotherapy would benefit from subacute rehab during initial outpatient chemotherapy as patient is alone most of the time at home Status: Acute (2) Anemia Assessment and Plan: chronic disease from malignancy and recent radiation Status: Acute (3) Small cell lung cancer Assessment and Plan: stage IV - progressive disease outpatient salvage chemotherapy s/p WBRT for brain mets LN and lung mets Thank you for this interesting consult. Status: Acute
[2017-11-24] MEDS ORDERED: Magnesium Hydroxide Susp 30 ml UD PO ONE (12:37)
--- NOTE | 2017-11-24 20:15 | CON ---
DATE: 11/24/2017 INPATIENT CONSULTATION REASON FOR CONSULTATION: Right ankle fracture. HISTORY OF PRESENT ILLNESS: This is a 62-year-old female with metastatic small cell lung cancer, who presented status post fall with right ankle pain. Patient also states she has pain in her lower back, and she complains of back and right ankle pain. She denies any numbness or tingling going down her legs. PHYSICAL EXAMINATION: GENERAL: This is a female who appears somnolent and lethargic. EXTREMITIES: Evaluation of right upper and lower extremities shows a right lower extremity posterior splint in place. NEUROVASCULAR: Grossly, she is neurovascularly intact and moving all her toes. She has lateral tenderness to palpation and no tenderness to palpation. Her thigh and calf are soft and nontender. She has no pain with passive range of motion of her knee. She has no pain with passive internal and external rotation of the right lower extremity. NEUROLOGIC: She is neurologically intact in bilateral lower extremities. Has negative straight leg raises bilaterally. LUMBAR: Somewhat difficult but no obvious step-off is appreciated with palpation. No gross deformity is appreciated. DIAGNOSTIC DATA: X-rays of the right ankle show a nondisplaced lateral malleolus fracture best seen on the mortise view. Some small bony fragments also noted anteriorly along the talus, which may be chronic. There are no imaging studies of her lumbar spine. IMPRESSION: Right lateral malleolus fracture with low back pain. PLAN: For now, we are going to keep her in the posterior splint. I recommended a Cam walker or cast once the soft tissue swelling has subsided. She understand this. This could be done as an outpatient. I would not recommend any operative treatment for this with regard to her back. Recommended imaging studies. We are going to order some imaging studies for further evaluation. Jurgen Toscano MD
--- NOTE | 2017-11-25 00:39 | CON ---
DATE: 11/24/2017 CARDIOLOGY CONSULTATION HISTORY OF PRESENT ILLNESS: The patient is a 62-year-old woman who presents after a fall. She was found on the floor unable to get out. PAST MEDICAL HISTORY: Includes a history of metastatic small cell CA, including metastases to the brain. The patient likely suffers from COPD in the past. In addition, she is on medications for hyperlipidemia and is on Xarelto at home. The patient denies loss of consciousness. SOCIAL HISTORY: The patient is a former smoker. REVIEW OF SYSTEMS: A 14 point review of systems reviewed in detail. No shortness of breath. No angina, no edema in the lower extremities. No dizziness. The patient was able to eat today. PHYSICAL EXAMINATION VITAL SIGNS: Blood pressure 107/72, the heart rates in the 70s, normal sinus rhythm. NECK: Negative JVD. LUNGS: Without rales. HEART: S1, S2. EXTREMITIES: Without edema. LABORATORY DATA: EKG shows normal sinus rhythm with nonspecific ST-T changes. Hemoglobin is 9.4. Chemistries, BUN and creatinine unremarkable. The CPK is 33 with a troponin of 0.01. IMPRESSION 1. Status post fall. 2. Near syncope. 3. Metastatic carcinoma. 4. Probable chronic obstructive pulmonary disease. PLAN: Given these findings, the patient did not experience syncope according to the history. Instead, it was a mechanical fall. We will continue to monitor for the next 24 hours. Bill Mortensen MD
--- NOTE | 2017-11-25 01:17 | PN ---
DATE: 11/24/2017 SUBJECTIVE: The patient is seen in room 360, bed 1. The patient is seen lying in the bed. The patient is awake, responsive. The patient does not offer any specific complaint. Overnight nurse's notes were reviewed. The patient stayed in the bed. The patient's right leg has been wrapped in Julio C and soft cast. The patient slept well overnight. REVIEW OF SYSTEMS: A 13-system review was positive for constipation and right leg pain. PHYSICAL EXAMINATION: VITAL SIGNS: T-max 98.4; pulse 69, 74, 61; blood pressure 107/72; respiration 20; O2 sat is 95%, 93%. Intake and output: Intake 1140, output 400. HEENT: Head: Normocephalic, atraumatic. HEENT examination shows pinkish pale conjunctivae. Anicteric sclerae. Positive alopecia. No oropharyngeal lesion. No neck rigidity. CHEST: Kyphosis. Positive left upper chest Port-A-Cath. LUNGS: Examination shows positive rhonchi, right more than the left. CARDIOVASCULAR: S1, S2, regular rhythm. ABDOMEN: Soft. Positive bowel sounds. No palpable hepatosplenomegaly. GENITALIA: Female. RECTAL: Examination is deferred. EXTREMITIES: Shows positive Julio C wrap of the right lower extremity and the soft cast of the right lower extremity. Trace swelling of the left lower extremity, decreased range of motion of the right lower extremity. Left lower extremity has full range of motion. MUSCULOSKELETAL: Examination shows a body mass index of 29. NEUROLOGIC: The patient is alert, awake, responsive, is able to move upper extremities without assistance and left lower extremity without assistance. Decreased range of motion of the right lower extremity. DIAGNOSTICS: 11/24, WBC 7.6, hemoglobin/hematocrit 9.4/29.4, platelets 132. Granulocytes 80. Sodium 135, potassium 3.6, chloride 102, CO2 of 28, anion gap 12, BUN 14, creatinine 0.7, GFR greater than 60, glucose 88, calcium 8.5, phosphorus 3.7, magnesium 1.9, LDH 919. CPK 26. Urine culture noted. The patient seen by Orthopedics and Hematology/Oncology recommendations noted. IMPRESSION: 1. Status post fall. 2. Acute right ankle lateral malleolar fracture. 3. Lumbar spine pain. 4. Hypotension. 5. Transient hypoxemia. 6. Stage IV small cell carcinoma of the lungs with spread to brain with multiple ring-enhancing brain metastases with and hemorrhagic metastasis with vasogenic edema and midline shift. 7. Gait dysfunction. 8. Deconditioning. 9. Normocytic anemia. 10. Granulocytosis. 11. Elevated LDH probably secondary to hemolysis. 12. Hematuria, pyuria, bacteriuria with contaminated urine culture. 13. Cervical spine degenerative disc disease and foramen stenosis. 14. Pretracheal soft tissue mass with adenopathy. 15. Right lower lobe lung mass and right hilar mass. 16. Fecal retention, fecal stasis, constipation with fecalization of the small bowel. 17. Diffuse bone demineralization of the hip and pelvis. 18. Acute nondisplaced fracture of the lateral malleolus of the right ankle and diffuse bone demineralization with moderate right ankle soft tissue swelling. 19. Left frontal lobe hemorrhagic metastasis with decreasing hemorrhage. 20. Right frontal lobe large cystic mass with multiple hypodense lesions in bilateral cerebral hemisphere without significant change. 21. Chronic left hemidiaphragm elevation. 22. Left lower lobe linear atelectasis. PLAN: At this time, the patient seen by Orthopedics. The patient seen by Hematology/Oncology, recommendations noted. The patient seen by the licensed clinical social worker for evaluation of discharge plan and possible subacute rehab placement. The patient has been ordered repeat labs. Current consultation; Cardiology, Hematology/Oncology, Orthopedics. At present, the patient is to be continued on therapeutic intervention as ordered. Orthopedics does not plan to do any surgeries. Recommendation is Cam boot or soft cast once the soft tissue swelling is subsided. No plans for orthopedic surgery recommended by Dr. Toscano. Current medications; Colace 100 mg three times a day, amiodarone 200 mg daily, digoxin 0.125 daily, Drisdol 50,000 units weekly. The patient was given a dose of K-Dur 20 mEq, Klonopin 0.5 mg daily p.r.n., Ringer's lactate 75 mL an hour, Lexapro 10 mg daily, Lipitor 40 mg daily, Lovenox 40 mg subcu daily which will be stopped once Xarelto is started. The patient is given a dose of milk of magnesia. The patient is on MiraLax 17 g three times a day, morphine 2 mg IV every 6 p.r.n., Protonix 40 mg daily, Spiriva 18 mcg daily, Synthroid 100 mcg daily, Toprol XL 25 mg daily, Tessalon Perles 200 mg three times a day, vitamin D3 2000 International Units daily, Xarelto 20 mg daily, Xopenex nebulizer 0.63 mg every 6 hours, Zofran 4 mg IV every 6 p.r.n. Regular diet, SCDs, ROEL stockings, elevation of the right lower extremities on two pillows. The patient will be followed closely with all subspecialty services. The patient's son and the patient was yesterday explained about her diagnosis, test results, recommendations and was updated today, which the patient acknowledged and understand. Overall, the patient's prognosis is guarded to poor. Dictated and electronically signed, not read. Loki Keyes MD
[2017-11-25] MEDS: Levalbuterol 0.63 MG/3 ML Inhal Soln UD IH SCH ×4 (01:41→19:29)
[2017-11-25] MEDS: Morphine 2 mg/ml ISec IVP PRN ×2 (04:52→13:38)
[2017-11-25 06:49] LABS: EOS # 0.1 (0.0-0.7); EOS % 0.8 % (1.5-5.0); GRAN # 5.32 (1.4-6.5); GRAN % 82.4 % (50.0-68.0); HEMOGLOBIN 9.5 g/dL (12.0-16.0); LYMPH # 0.7 (1.2-3.4); LYMPH % 10.4 % (22.0-35.0); MEAN CELL VOLUME 100.3 fl (80.0-105.0); MEAN CORPUSCULAR HEMOGLOBIN 32.1 pg (25.0-35.0); MEAN PLATELET VOLUME 8.5 fl (7.0-11.0); MONO # 0.4 (0.1-0.6); MONO % 6.4 % (1.0-6.0); RBC 2.96 10^6/uL (3.5-6.1); RED CELL DISTRIBUTION WIDTH 13.5 % (11.5-14.5); WHITE BLOOD COUNT 6.5 10^3/ul (4.5-11.0)
[2017-11-25 07:25] LABS: ALB/GLOB RATIO 1.2 (1.1-1.8); ALBUMIN 3.4 g/dL (3.0-4.8); ALT/SGPT 38 U/L (7-56); AST/SGOT 29 U/L (14-36); BILIRUBIN,DIRECT 0.1 mg/dL (0.0-0.4); BLOOD UREA NITROGEN 12 mg/dL (7-21); CALCIUM 8.7 mg/dL (8.4-10.5); GFR NON-AFRICAN AMERICAN > 60
[2017-11-25] MEDS: POLYETHYLENE GLYCOL 3350 17 GM/Dose PACKET PO SCH ×4 (09:34→17:25)
[2017-11-25] MEDS: Levothyroxine 100 MCG TAB PO SCH (09:35)
[2017-11-25] MEDS: Tiotropium 18 mcg Cap For Inhalation IH SCH (09:35)
[2017-11-25] MEDS: Pantoprazole 40 mg EC Tab PO SCH (09:35)
[2017-11-25] MEDS: Metoprolol Succinate 50 mg XL Tab PO SCH (09:35)
[2017-11-25] MEDS: Cholecalciferol 1,000 INTLU TAB PO SCH (09:36)
[2017-11-25] MEDS: Digoxin 125 mcg (0.125 mg) Tab PO SCH (13:26)
[2017-11-25] MEDS: Lactated Ringer's 1,000 ML IV SCH (13:47)
--- NOTE | 2017-11-25 20:04 | PN ---
DATE: 11/25/2017 SUBJECTIVE: The patient is seen in room 360, bed 1. The patient is seen lying in the bed. The patient is awake, responsive, alert. Oriented to person and place. Disoriented to year, date, month. The patient's overnight nurse's notes were reviewed. Overnight, the patient was found to be alert, awake, oriented x3. This morning, the patient was found to be alert, awake, responsive, oriented to person and place. PHYSICAL EXAMINATION: VITAL SIGNS: T-max 98.4, heart rate 60, 59, 62, 65, blood pressure the last 12 hours 136/81, respiration 20, O2 sat 95%. HEENT: Head: Normocephalic, atraumatic. Positive alopecia noted. Pinkish pale conjunctivae noted. Dry oral mucosa noted. NECK: No neck rigidity. CHEST: Kyphosis. Positive upper chest Port-A-Cath noted. CARDIOVASCULAR: S1 and S2, regular rhythm. ABDOMEN: Soft. Positive bowel sounds. No hepatosplenomegaly palpable appreciated. No organomegaly noted. Positive Russo catheter. GENITALIA: Female. EXTREMITIES: Shows positive right lower extremity Julio C wrap and dressing and soft cast. Decreased range of motion of the right lower extremity. Left lower extremity shows missing ROEL stockings and SCDs despite my orders. No calf tenderness noted. NEUROLOGICAL: The patient is alert, awake, oriented x2. MUSCULOSKELETAL: Shows a body mass index of 29. DIAGNOSTICS: On 11/25/2017, WBC 6.5, hemoglobin and hematocrit 9.5 and 29.6, platelet 136. Granulocytes 82% segs. Sodium 136, potassium 4.1, chloride 102, CO2 29, anion gap 9, BUN 12, creatinine 0.7 GFR greater than 60, glucose 84, calcium 8.7, phosphorus 3.7, magnesium 2.1. LFTs are normal. Urine culture contaminated. The patient was seen by Webbing Inspector for discharge planning. IMPRESSION: 1. Status post fall. 2. Gait dysfunction. 3. Acute nondisplaced right ankle lateral malleolus fracture with diffuse bone demineralization and moderate lateral soft tissue swelling. 4. Hypotension. 5. Bradycardia. 6. Normocytic anemia with granulocytosis. 7. Small cell right-sided lung carcinoma stage IV. 8. 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 9. Anemia of malignancy. 10. Elevated lactate dehydrogenase, etiology undetermined. 11. Microscopic hematuria, pyuria, bacteriuria. 12. urinary retention with Russo catheter placement. 13. History of paroxysmal atrial fibrillation. 14. Gait dysfunction. 15. Alopecia. 16. Atrial fibrillation. 17. Xarelto-dependent atrial fibrillation. 18. History of chronic obstructive pulmonary disease. 19. Stage IV small cell lung carcinoma. 20. Status post whole-brain radiation therapy. 21. Upper extremity tremors. 22. Hypovitaminosis D. 23. Depression. 24. Constipation. 25. Fecal stasis and fecal retention. 26. History of hypothyroidism. PLAN AT THIS TIME: The patient has been ordered repeat labs. CONSULTATION: 1. Cardiology. 2. Hematology/Oncology. 3. Orthopedics. CURRENT MEDICATIONS: Colace 100 mg three times a day, amiodarone 200 mg daily, digoxin 0.125 daily, Drisdol 50,000 weekly, Klonopin 0.5 mg daily p.r.n., Ringer's lactate 75 mL/hour, Lexapro 10 mg daily, Lipitor 40 mg daily, MiraLax 17 g three times a day, morphine 2 mg IV every 6 hours p.r.n., Protonix 40 mg daily for GI prophylaxis, Spiriva 18 mcg daily, Synthroid 100 mcg daily, Tessalon Perles 200 three times a day, Toprol-XL 50 mg daily, Tylenol 650 mg every every 6 p.r.n., vitamin D3 2000 International Units daily, Xarelto 20 mg daily, Xopenex 0.63 mg every 6 hours, Zofran 4 mg IV every 4 p.r.n., regular diet, ROEL stockings, SCDs to the left lower extremity, seizure precaution, head of the bed at 30 degrees. As mentioned before, the patient needed a placement of the urinary Russo catheter. The patient had bladder scan done where the patient was found to have urinary retention of greater than 999. The patient at present is to be continued on the above therapeutic intervention. The patient's further management will be dependent upon the patient's clinical condition, hemodynamic status and as per the patient's response to therapeutic intervention, as per the patient's diagnostic test results and as per recommendation by all the physician involved in the care of the patient. The patient's case is referred to Physical Therapy. Evaluation pending. Recommendation pending. The patient is seen by Webbing Inspector. Discharge planning unclear at this time. Dictated and electronically signed, not read. Loki Keyes MD
[2017-11-26] MEDS: Levalbuterol 0.63 MG/3 ML Inhal Soln UD IH SCH ×4 (01:24→19:18)
[2017-11-26] MEDS: Lactated Ringer's 1,000 ML IV SCH ×2 (02:36→16:02)
[2017-11-26 06:29] LABS: EOS # 0.1 (0.0-0.7); EOS % 1.3 % (1.5-5.0); GRAN # 5.78 (1.4-6.5); GRAN % 80.9 % (50.0-68.0); LYMPH # 0.7 (1.2-3.4); LYMPH % 9.1 % (22.0-35.0); MEAN CELL VOLUME 101.1 fl (80.0-105.0); MEAN CORPUSCULAR HGB CONC 31.7 g/dl (31.0-37.0); MEAN PLATELET VOLUME 8.6 fl (7.0-11.0); MONO # 0.6 (0.1-0.6); MONO % 8.7 % (1.0-6.0); RBC 2.81 10^6/uL (3.5-6.1); RED CELL DISTRIBUTION WIDTH 13.6 % (11.5-14.5); WHITE BLOOD COUNT 7.1 10^3/ul (4.5-11.0)
[2017-11-26 06:32] LABS: ALB/GLOB RATIO 1.2 (1.1-1.8); ALBUMIN 3.1 g/dL (3.0-4.8); ALT/SGPT 29 U/L (7-56); AST/SGOT 23 U/L (14-36); BILIRUBIN,DIRECT 0.1 mg/dL (0.0-0.4); BLOOD UREA NITROGEN 15 mg/dL (7-21); CALCIUM 8.5 mg/dL (8.4-10.5); GFR NON-AFRICAN AMERICAN > 60
[2017-11-26] MEDS: Morphine 2 mg/ml ISec IVP PRN ×2 (07:38→22:37)
[2017-11-26] MEDS: POLYETHYLENE GLYCOL 3350 17 GM/Dose PACKET PO SCH ×4 (09:15→18:36)
[2017-11-26] MEDS: Pantoprazole 40 mg EC Tab PO SCH (09:15)
[2017-11-26] MEDS: Metoprolol Succinate 50 mg XL Tab PO SCH (09:16)
[2017-11-26] MEDS: Levothyroxine 100 MCG TAB PO SCH (09:16)
[2017-11-26] MEDS: Tiotropium 18 mcg Cap For Inhalation IH SCH (09:16)
[2017-11-26] MEDS: Cholecalciferol 1,000 INTLU TAB PO SCH (09:16)
--- NOTE | 2017-11-26 12:33 | PN ---
DATE: 11/26/2017 This patient is under the care of Dr. Loki Keyes, I am covering for him today. The patient is in room 360, bed 1. SUBJECTIVE: The patient is in the hospital. She was admitted with acute traumatic injury with fracture of the right ankle. Patient has significant past medical history of small cell carcinoma of the lung with metastatic disease to the brain. Patient has history of chronic obstructive lung disease. She has past history of longstanding nicotine addiction, cigarette smoker. (Patient seen this morning, she is lying down in bed, comfortable, sleeping and she answers questions very modestly.) PHYSICAL EXAMINATION: VITAL SIGNS: Pulse is 61, blood pressure 130/80, patient's respirations are 18 per minute, O2 saturation is 98% on room air. HEENT: On examination of the head, ____ probably hair loss from chemotherapy. NECK: The thyroid is not enlarged. She has some effects of steroid syndrome. LUNGS: Clinically clear bilaterally. HEART: Normal sinus rhythm. No murmurs. ABDOMEN: Soft. Liver and spleen not palpable. CENTRAL NERVOUS SYSTEM: Patient is conscious/well oriented. MEDICATIONS: Patient's medication list consisted of Colace 100 mg 3 times a day. Patient is on amiodarone 200 mg daily. Patient is on digoxin 125 mcg daily. Patient is on Klonopin for anxiety. Patient is on Lipitor for hyperlipidemia. Patient gets morphine for pain, pantoprazole for gastritis and reflux. Patient is on Spiriva for COPD. Synthroid 100 mcg daily, patient is on that for hypothyroidism. Patient gets metoprolol 50 mg daily and she is also on Xarelto 20 mg p.o. daily. LABORATORY DATA: Patient's recent blood work: Hemoglobin is 9. Patient's chemistry is within normal range. GFR is good. Patient's total protein is 5.7. Patient's differential shows platelet count of 135,000 on the CBC. Patient's EKG that was done in the hospital shows normal sinus rhythm. Patient is on anticoagulation probably for prophylaxis. We will continue current management, follow up. Fidelia Aguilar MD [facility] # [id number]
[2017-11-26] MEDS: Digoxin 125 mcg (0.125 mg) Tab PO SCH (14:39)
--- NOTE | 2017-11-26 22:10 | CP.PCM.PN ---
Subjective - Date & Time of Evaluation Date of Evaluation: 11/25/17 Time of Evaluation: 19:00 - Subjective Subjective: Feeling better but still weak Objective - Vital Signs/Intake and Output Vital Signs (last 24 hours): Temp Pulse Resp BP Pulse Ox 98.6 F 71 19 105/65 91 L 11/26/17 17:42 11/26/17 18:00 11/26/17 17:42 11/26/17 17:42 11/26/17 17:42 Intake and Output: 11/26/17 11/27/17 18:59 06:59 Intake Total 1620 Output Total 1250 Balance 370 - Medications Medications: Current Medications Acetaminophen (Tylenol 325mg Tab) 650 mg PO Q6H PRN PRN Reason: Fever >100.4 F Amiodarone HCl (Cordarone) 200 mg PO DAILY [facility] Last Admin: 11/26/17 09:11 Dose: 200 mg Atorvastatin Calcium (Lipitor) 40 mg PO DIN [facility] Last Admin: 11/26/17 18:36 Dose: 40 mg Benzonatate (Tessalon Perles) 200 mg PO TID [facility] Last Admin: 11/26/17 18:36 Dose: 200 mg Cholecalciferol (Vitamin D) 2,000 intlu PO DAILY [facility] Last Admin: 11/26/17 09:16 Dose: 2,000 intlu Clonazepam (Klonopin) 0.5 mg PO DAILY PRN; Protocol PRN Reason: Anxiety Digoxin (Digoxin) 0.125 mg PO 1400 [facility] Last Admin: 11/26/17 14:39 Dose: 0.125 mg Docusate Sodium (Colace) 100 mg PO TID [facility] Last Admin: 11/26/17 18:36 Dose: 100 mg Ergocalciferol (Drisdol 50,000 Intl Units Cap) 1 cap PO Q7D [facility] Last Admin: 11/23/17 18:17 Dose: 1 cap Escitalopram Oxalate (Lexapro) 10 mg PO DAILY [facility] Last Admin: 11/26/17 09:15 Dose: 10 mg Levalbuterol HCl (Xopenex) 0.63 mg IH [id number] [facility] Last Admin: 11/26/17 19:18 Dose: 0.63 mg Levothyroxine Sodium (Synthroid) 100 mcg PO DAILY [facility] Last Admin: 11/26/17 09:16 Dose: 100 mcg Metoprolol Succinate (Toprol Xl) 50 mg PO DAILY [facility] Last Admin: 11/26/17 09:16 Dose: 50 mg Morphine Sulfate (Morphine) 2 mg IVP Q6H PRN PRN Reason: Pain, moderate (4-7) Last Admin: 11/26/17 07:38 Dose: 2 mg Ondansetron HCl (Zofran Inj) 4 mg IVP Q6H PRN PRN Reason: Nausea/Vomiting Pantoprazole Sodium (Protonix Ec Tab) 40 mg PO DAILY [facility] Last Admin: 11/26/17 09:15 Dose: 40 mg Polyethylene Glycol (Miralax) 17 gm PO TID [facility] Last Admin: 11/26/17 18:36 Dose: Not Given Rivaroxaban (Xarelto) 20 mg PO DAILY [facility]; Protocol Last Admin: 11/26/17 09:16 Dose: 20 mg Tiotropium [place] (Spiriva) 18 mcg IH DAILY [facility] Last Admin: 11/26/17 09:16 Dose: 18 mcg - Labs Labs: 11/26/17 05:30 11/26/17 05:30 PT 11.4 SECONDS (9.4-12.5) 11/23/17 13:15 INR 0.99 11/23/17 13:15 APTT 25.2 Seconds (25.1-36.5) 11/23/17 13:15 - Head Exam Head Exam: ATRAUMATIC - Eye Exam Eye Exam: Normal appearance - ENT Exam ENT Exam: Mucous Membranes Dry - Respiratory Exam Respiratory Exam: NORMAL BREATHING PATTERN - Cardiovascular Exam Cardiovascular Exam: +S1, +S2 - GI/Abdominal Exam GI & Abdominal Exam: Normal Bowel Sounds Assessment and Plan (1) Debility Assessment & Plan: secondary to malignancy recent brain mets and whole brain radiotherapy would benefit from subacute rehab during initial outpatient chemotherapy as patient is alone most of the time at home Status: Acute (2) Anemia Assessment & Plan: chronic disease from malignancy and recent radiation Status: Acute (3) Small cell lung cancer Assessment & Plan: stage IV - progressive disease outpatient salvage chemotherapy s/p WBRT for brain mets LN and lung mets Status: Acute
[2017-11-27] MEDS: Levalbuterol 0.63 MG/3 ML Inhal Soln UD IH SCH ×4 (01:13→19:24)
[2017-11-27] MEDS: Morphine 2 mg/ml ISec IVP PRN ×2 (04:32→18:30)
--- NOTE | 2017-11-27 08:38 | PN ---
DATE: 11/26/2017 Fidelia Aguilar MD [facility] # [id number]
[2017-11-27] MEDS: POLYETHYLENE GLYCOL 3350 17 GM/Dose PACKET PO SCH ×3 (09:21→18:31)
[2017-11-27] MEDS: Cholecalciferol 1,000 INTLU TAB PO SCH (09:21)
[2017-11-27] MEDS: Metoprolol Succinate 50 mg XL Tab PO SCH (09:21)
[2017-11-27] MEDS: Tiotropium 18 mcg Cap For Inhalation IH SCH (09:21)
[2017-11-27] MEDS: Levothyroxine 100 MCG TAB PO SCH (09:22)
[2017-11-27] MEDS: Pantoprazole 40 mg EC Tab PO SCH (09:23)
[2017-11-27] MEDS: Digoxin 125 mcg (0.125 mg) Tab PO SCH (15:23)
--- NOTE | 2017-11-27 16:11 | PN ---
DATE: 11/27/2017 CARDIOLOGY FOLLOWUP SUBJECTIVE: The patient is in bed, awake, alert, eating. PHYSICAL EXAMINATION: VITAL SIGNS: Blood pressure is 99/67, heart rate is in the 50s, sinus bradycardia. NECK: Negative JVD. LUNGS: Without rales. HEART: Reveals S1 and S2. EXTREMITIES: Without edema. LABORATORY DATA: Hemoglobin is 9. BUN and creatinine are unremarkable. IMPRESSION: 1. Paroxysmal atrial fibrillation, which the patient is now converted to normal sinus rhythm with marked bradycardia. 2. Near syncope. 3. History of metastatic cancer. 4. Chronic obstructive pulmonary disease. Given these findings, given her slow heart rate, we will discontinue her beta-blockers. We will continue her on low-dose amiodarone and digoxin. Telemetry can be discontinued. Bill Mortensen MD
--- NOTE | 2017-11-27 17:35 | CP.PCM.PN ---
Subjective - Date & Time of Evaluation Date of Evaluation: 11/27/17 Time of Evaluation: 15:00 - Subjective Subjective: Ortho follow up Dr. Toscano Patient denies pain in ankle. Denies numbness/tingling. Objective - Vital Signs/Intake and Output Vital Signs (last 24 hours): Temp Pulse Resp BP Pulse Ox 98 F 68 16 97/61 L 92 L 11/27/17 16:23 11/27/17 16:23 11/27/17 16:23 11/27/17 16:23 11/27/17 16:23 Intake and Output: 11/27/17 11/27/17 06:59 18:59 Intake Total 1860 240 Output Total 3050 Balance -1190 240 - Medications Medications: Current Medications Acetaminophen (Tylenol 325mg Tab) 650 mg PO Q6H PRN PRN Reason: Fever >100.4 F Last Admin: 11/27/17 01:07 Dose: 650 mg Amiodarone HCl (Cordarone) 200 mg PO DAILY [facility] Last Admin: 11/27/17 09:23 Dose: Not Given Atorvastatin Calcium (Lipitor) 40 mg PO DIN [facility] Last Admin: 11/26/17 18:36 Dose: 40 mg Benzonatate (Tessalon Perles) 200 mg PO TID [facility] Last Admin: 11/27/17 15:23 Dose: 200 mg Cholecalciferol (Vitamin D) 2,000 intlu PO DAILY [facility] Last Admin: 11/27/17 09:21 Dose: 2,000 intlu Clonazepam (Klonopin) 0.5 mg PO DAILY PRN; Protocol PRN Reason: Anxiety Last Admin: 11/27/17 01:07 Dose: 0.5 mg Digoxin (Digoxin) 0.125 mg PO 1400 [facility] Last Admin: 11/27/17 15:23 Dose: 0.125 mg Docusate Sodium (Colace) 100 mg PO TID [facility] Last Admin: 11/27/17 15:23 Dose: 100 mg Ergocalciferol (Drisdol 50,000 Intl Units Cap) 1 cap PO Q7D [facility] Last Admin: 11/23/17 18:17 Dose: 1 cap Escitalopram Oxalate (Lexapro) 10 mg PO DAILY [facility] Last Admin: 11/27/17 09:21 Dose: 10 mg Levalbuterol HCl (Xopenex) 0.63 mg IH [id number] [facility] Last Admin: 11/27/17 13:45 Dose: 0.63 mg Levothyroxine Sodium (Synthroid) 100 mcg PO DAILY [facility] Last Admin: 11/27/17 09:22 Dose: 100 mcg Morphine Sulfate (Morphine) 2 mg IVP Q6H PRN PRN Reason: Pain, moderate (4-7) Last Admin: 11/27/17 04:32 Dose: 2 mg Ondansetron HCl (Zofran Inj) 4 mg IVP Q6H PRN PRN Reason: Nausea/Vomiting Pantoprazole Sodium (Protonix Ec Tab) 40 mg PO DAILY [facility] Last Admin: 11/27/17 09:23 Dose: 40 mg Polyethylene Glycol (Miralax) 17 gm PO TID [facility] Last Admin: 11/27/17 15:24 Dose: 17 gm Rivaroxaban (Xarelto) 20 mg PO DAILY [facility]; Protocol Last Admin: 11/27/17 09:23 Dose: 20 mg Tiotropium [place] (Spiriva) 18 mcg IH DAILY [facility] Last Admin: 11/27/17 09:21 Dose: 18 mcg - Labs Labs: 11/26/17 05:30 11/26/17 05:30 PT 11.4 SECONDS (9.4-12.5) 11/23/17 13:15 INR 0.99 11/23/17 13:15 APTT 25.2 Seconds (25.1-36.5) 11/23/17 13:15 - Constitutional Appears: Chronically Ill - Neck Exam Neck Exam: Full ROM, Normal Inspection - Respiratory Exam Respiratory Exam: NORMAL BREATHING PATTERN - Cardiovascular Exam Additional comments: toes warm, good cap refill - Extremities Exam Additional comments: SPlint intact - Neurological Exam Neurological Exam: Alert, Awake Neuro motor strength exam: Right Lower Extremity: 5 (+ROM toes) - Psychiatric Exam Psychiatric exam: Depressed - Skin Skin Exam: Dry, Intact, Normal Color, Warm Assessment and Plan (1) Nondisplaced fracture of lateral malleolus of right fibula Assessment & Plan: non operative splint, plan transition to CAM walker boot after swelling goes down NWB at this time elevation PT/OT d/w Dr. Toscano, agrees with above Status: Acute
[2017-11-28] MEDS: Morphine 2 mg/ml ISec IVP PRN ×3 (01:20→22:28)
[2017-11-28] MEDS: Levalbuterol 0.63 MG/3 ML Inhal Soln UD IH SCH ×4 (02:06→20:45)
--- NOTE | 2017-11-28 05:21 | PN ---
DATE: 11/27/2017 SUBJECTIVE: The patient is seen in room 360, bed 1. The patient is seen lying in the bed. The patient is comfortable. Overnight nurse's notes were reviewed. The patient slept well overnight without any adverse events documented. PHYSICAL EXAMINATION: VITAL SIGNS: T-max 98.6, heart rate 68, 60, blood pressure 99/67, 105/65, 99/67, respirations 16, O2 sat is 92%, 94%, 97%. HEAD: Normocephalic, atraumatic. HEENT examination shows positive alopecia. Pale conjunctivae. Dry oral mucosa. No neck rigidity. CHEST: Kyphosis. Positive upper chest Port-A-Cath. LUNGS: Shows positive rhonchi, right more than the left. CARDIOVASCULAR: S1, S2, regular rhythm. Questionable soft systolic murmur in left sternal border, right second intercostal space, left second intercostal space. ABDOMEN: Soft. Positive bowel sounds. No palpable hepatosplenomegaly noted. GENITALIA: Female. RECTAL: Deferred. Extremity shows positive right lower extremity soft cast and Julio C wrap. Decreased range of motion of the right lower extremity. Gait examination could not be tested. VASCULAR: Intact for the left lower extremity. DIAGNOSTICS: From 11/26/2017 reviewed. IMPRESSION AND PLAN: 1. Gait dysfunction. 2. Status post fall. 3. Acute nondisplaced fracture of the lateral malleolus of the right fibula. 4. Deconditioning. 5. Acute nondisplaced right ankle lateral malleolus fracture with diffuse bone demineralization and moderate lateral soft tissue swelling. 6. Hypotension. 7. Bradycardia. 8. Transient hypoxemia. 9. Depression. 10. History of upper extremity tremors. 11. Normocytic anemia with granulocytosis. 12. Anemia of chronic disease and malignancy. 13. Microscopic hematuria, pyuria, bacteriuria. 14. History of paroxysmal atrial fibrillation. 15. History of constipation. 16. Hypovitaminosis D. 17. Hyperlipidemia. 18. Chronic obstructive pulmonary disease. 19. Hypothyroidism. At present, the patient was seen by Orthopedics and Cardiology. Orthopedics recommends the patient's fracture is non-nonoperative. The patient needs to be nonweightbearing until the patient is in Cam walker. The patient's beta tanya was discontinued by Dr. Bill Mortensen because of bradycardia. The patient will be continued on Colace 100 mg 3 times a day, amiodarone 200 mg daily, digoxin 0.125 mg daily, Drisdol 50,000 units weekly, Klonopin 0.5 mg daily p.r.n., Lexapro 10 mg daily, Lipitor 40 mg daily, MiraLax 17 g 3 times a day, morphine 2 mg IV every 6 hours p.r.n., Protonix 40 mg daily, Spiriva 18 mcg daily, Synthroid 100 mcg daily, Tessalon Perles 200 three times a day, Tylenol 650 p.o. every 6 hours p.r.n., vitamin D3 2000 international units daily, Xarelto 20 mg daily, Xopenex 0.63 mg every 6 hours, Zofran 4 mg IV every 6 hours p.r.n. incentive spirometry, oxygen 2 liters. Regular diet. Head of the bed, out of bed, SCDs, physical therapy, occupational therapy all ordered. The patient's discharge disposition will be dependent upon the recommendation by the physical therapy. The patient at present categorically refuses to go to subacute rehab. I have discussed the discharge options with the patient. The patient does not want to go to subacute rehab. I have advised that due to the patient's own medical condition and the fracture of the foot and ankle, the patient herself will benefit most from the subacute rehab at least and at this time, the patient's case is referred to physical therapy, social science analyst, etc. The patient will be continued on above therapeutic intervention. Dictated and electronically signed, not read. Loki Keyes MD
[2017-11-28 08:10] VITALS: RESP 19
[2017-11-28] MEDS: Pantoprazole 40 mg EC Tab PO SCH (09:15)
[2017-11-28] MEDS: POLYETHYLENE GLYCOL 3350 17 GM/Dose PACKET PO SCH ×3 (09:15→17:29)
[2017-11-28] MEDS: Cholecalciferol 1,000 INTLU TAB PO SCH (09:16)
[2017-11-28] MEDS: Tiotropium 18 mcg Cap For Inhalation IH SCH (09:16)
[2017-11-28] MEDS: Levothyroxine 100 MCG TAB PO SCH (09:16)
--- NOTE | 2017-11-28 13:25 | PN ---
DATE: 11/28/2017 CARDIOLOGY FOLLOWUP: HISTORY: The patient is resting comfortably in bed. No issues noted. PHYSICAL EXAMINATION: VITAL SIGNS: Blood pressure is 121/68, the heart rate is in the 60s. NECK: Negative JVD. LUNGS: Without rales. HEART: Reveals S1, S2. EXTREMITIES: Without edema. LABORATORY DATA: Hemoglobin is 9. BUN and creatinine are unremarkable. IMPRESSION: 1. Paroxysmal atrial fibrillation, which is now in normal sinus rhythm. 2. History of near syncope. 3. Metastatic cancer. 4. Chronic obstructive pulmonary disease. PLAN: Given these findings, the patient's heart rate is better off the beta blockers. We will continue with the low-dose amiodarone and digoxin. The patient is scheduled to go to rehab. Bill Mortensen MD
[2017-11-28] MEDS: Digoxin 125 mcg (0.125 mg) Tab PO SCH (14:39)
--- NOTE | 2017-11-28 15:08 | CP.PCM.CON ---
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 She injured her right side/ankle. She denied nausea, vomiting, syncope, dizziness or shortness of breath. X ray showed an acute non displaced fracture in the right lateral malleolus and moderate lateral soft tissue swelling. Head CT showed no changes in metastatic disease, large cystic lesion in the right frontal lobe measuring 4.7cm. CT of abdomen showed no acute findings. She was recently admitted to [facility] on 11/13/17 after suffering a fall at home and was found to have brain lesions . She received whole brain XRT therapy She was t hen transitioned to [facility] for deconditioning, discharged home on 11/22/17. PMHX: A fib on Xarelto, tremors, SCL cancer brain metastasis s/p chemo and WBRT, hypothyroidism. PSH:Port a cath, ORIF right hand Social History: Former smoker, no alcohol or drug use Family History: Father /brother cancer( unsure what type). Mother diabetes. Advance Care Planning: The patient does not have an Advanced Directive Review of Systems: Complains of upper arm tremors, weakness, forgetfulness, 12p oint review otherwise negative Past Patient History - Infectious Disease Hx of Infectious Diseases: None - Past Medical History & Family History Past Medical History?: Yes - Past Social History Smoking Status: Former Smoker - CARDIAC Hx Hypertension: Yes - PULMONARY Hx Chronic Obstructive Pulmonary Disease (COPD): Yes - NEUROLOGICAL Hx Neurological Disorder: No - HEENT Hx HEENT Problems: Yes (eyeglasses) - RENAL Hx Chronic Kidney Disease: No - ENDOCRINE/METABOLIC Hx Hypothyroidism: Yes - HEMATOLOGICAL/ONCOLOGICAL Hx Cancer: Yes (brain lesions) - INTEGUMENTARY Other/Comment: right mid back thoracenthesis dressing dry and intact - MUSCULOSKELETAL/RHEUMATOLOGICAL Hx Falls: Yes - GASTROINTESTINAL Hx Gastrointestinal Disorders: No - GENITOURINARY/GYNECOLOGICAL Hx Reproductive Disorders: No - PSYCHIATRIC Hx Depression: No Hx Emotional Abuse: No Hx Physical Abuse: No Hx Substance Use: No - SURGICAL HISTORY Other/Comment: Throat and Lung Bx. Right Chest Wall Port placement - ANESTHESIA Hx Anesthesia: Yes Hx Anesthesia Reactions: No Hx Malignant Hyperthermia: No Meds Allergies/Adverse Reactions: Allergies Allergy/AdvReac Type Severity Reaction Status Date / Time No Known Allergies Allergy Verified 11/23/17 18:39 - Medications Medications: Current Medications Acetaminophen (Tylenol 325mg Tab) 650 mg PO Q6H PRN PRN Reason: Fever >100.4 F Last Admin: 11/27/17 01:07 Dose: 650 mg Amiodarone HCl (Cordarone) 200 mg PO DAILY [facility] Last Admin: 11/28/17 09:16 Dose: 200 mg Atorvastatin Calcium (Lipitor) 40 mg PO DIN [facility] Last Admin: 11/27/17 18:30 Dose: 40 mg Benzonatate (Tessalon Perles) 200 mg PO TID [facility] Last Admin: 11/28/17 14:39 Dose: 200 mg Cholecalciferol (Vitamin D) 2,000 intlu PO DAILY [facility] Last Admin: 11/28/17 09:16 Dose: 2,000 intlu Clonazepam (Klonopin) 0.5 mg PO DAILY PRN; Protocol PRN Reason: Anxiety Last Admin: 11/27/17 01:07 Dose: 0.5 mg Digoxin (Digoxin) 0.125 mg PO 1400 [facility] Last Admin: 11/28/17 14:39 Dose: 0.125 mg Docusate Sodium (Colace) 100 mg PO TID [facility] Last Admin: 11/28/17 14:39 Dose: 100 mg Ergocalciferol (Drisdol 50,000 Intl Units Cap) 1 cap PO Q7D [facility] Last Admin: 11/23/17 18:17 Dose: 1 cap Escitalopram Oxalate (Lexapro) 10 mg PO DAILY [facility] Last Admin: 11/28/17 09:15 Dose: 10 mg Levalbuterol HCl (Xopenex) 0.63 mg IH [id number] [facility] Last Admin: 11/28/17 13:54 Dose: 0.63 mg Levothyroxine Sodium (Synthroid) 100 mcg PO DAILY [facility] Last Admin: 11/28/17 09:16 Dose: 100 mcg Morphine Sulfate (Morphine) 2 mg IVP Q6H PRN PRN Reason: Pain, moderate (4-7) Last Admin: 11/28/17 09:23 Dose: 2 mg Ondansetron HCl (Zofran Inj) 4 mg IVP Q6H PRN PRN Reason: Nausea/Vomiting Pantoprazole Sodium (Protonix Ec Tab) 40 mg PO DAILY [facility] Last Admin: 11/28/17 09:15 Dose: 40 mg Polyethylene Glycol (Miralax) 17 gm PO TID [facility] Last Admin: 11/28/17 14:39 Dose: 17 gm Rivaroxaban (Xarelto) 20 mg PO DAILY [facility]; Protocol Last Admin: 11/28/17 09:16 Dose: 20 mg Tiotropium [place] (Spiriva) 18 mcg IH DAILY [facility] Last Admin: 11/28/17 09:16 Dose: 18 mcg Physical Exam - Constitutional Appears: Chronically Ill - Head Exam Head Exam: NORMOCEPHALIC - Eye Exam Eye Exam: Normal appearance Pupil Exam: NORMAL ACCOMODATION - ENT Exam ENT Exam: Mucous Membranes Moist, Normal Oropharynx - Neck Exam Neck exam: Positive for: Normal Inspection - Respiratory Exam Respiratory Exam: Decreased Breath Sounds, NORMAL BREATHING PATTERN - Cardiovascular Exam Cardiovascular Exam: REGULAR RHYTHM, +S1, +S2 - GI/Abdominal Exam GI & Abdominal Exam: Normal Bowel Sounds, Soft - Extremities Exam Additional comments: weakness, tremors of both upper extremities L>R - Neurological Exam Neurological exam: Alert, Oriented x3 - Psychiatric Exam Psychiatric exam: Flat Affect - Skin Skin Exam: Dry, Warm - Additional Findings Additional findings: Palliative performance scale rating 40% Results - Vital Signs Recent Vital Signs: Last Vital Signs Temp 98.2 F 11/28/17 08:09 Pulse 63 11/28/17 09:16 Resp 19 11/28/17 08:09 BP 121/68 11/28/17 09:16 Pulse Ox 94 L 11/28/17 08:09 - Labs Result Diagrams: 11/26/17 05:30 11/26/17 05:30 Assessment & Plan - Assessment and Plan (Free Text) Assessment: 62 year old female with history of HTN, 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 Patient and family wish to discuss advance care planning. Patient understands her medical condition and states she wishes to continue treatment of her cancer. She does not want dialysis, intubation, CPR or permanent feeding tube. POLST directive explained, questions answered. POLST DNR/DNI completed. Patients daughter Lisa Dugan present during conversation. Lisa is in agreement with her mother's wishes wishes. Both, Lisa Dugan and her brother Uday Martinez have been appointed as health care surrogates. Time spent with apit and family in goals of care and advance care planning, 50 minutes Plan: Goals of care and advance care planning, POLST: DNR/DNI> Dr Keyes notified [place] Lung cancer : Follow up with Dr Christie as an out patient possible salvage therapy Deconditioning: WILD recommended, SW/porter sample case working on placement A Fib: Continue Xarelto
--- NOTE | 2017-11-28 15:16 | CP.PCM.PN ---
Subjective - Date & Time of Evaluation Date of Evaluation: 11/27/17 Time of Evaluation: 19:00 - Subjective Subjective: No complaints. Objective - Vital Signs/Intake and Output Vital Signs (last 24 hours): Temp Pulse Resp BP Pulse Ox 98.2 F 63 19 121/68 94 L 11/28/17 08:09 11/28/17 09:16 11/28/17 08:09 11/28/17 09:16 11/28/17 08:09 Intake and Output: 11/28/17 11/28/17 06:59 18:59 Intake Total 120 Output Total 50 Balance 70 - Medications Medications: Current Medications Acetaminophen (Tylenol 325mg Tab) 650 mg PO Q6H PRN PRN Reason: Fever >100.4 F Last Admin: 11/27/17 01:07 Dose: 650 mg Amiodarone HCl (Cordarone) 200 mg PO DAILY [facility] Last Admin: 11/28/17 09:16 Dose: 200 mg Atorvastatin Calcium (Lipitor) 40 mg PO DIN [facility] Last Admin: 11/27/17 18:30 Dose: 40 mg Benzonatate (Tessalon Perles) 200 mg PO TID [facility] Last Admin: 11/28/17 14:39 Dose: 200 mg Cholecalciferol (Vitamin D) 2,000 intlu PO DAILY [facility] Last Admin: 11/28/17 09:16 Dose: 2,000 intlu Clonazepam (Klonopin) 0.5 mg PO DAILY PRN; Protocol PRN Reason: Anxiety Last Admin: 11/27/17 01:07 Dose: 0.5 mg Digoxin (Digoxin) 0.125 mg PO 1400 [facility] Last Admin: 11/28/17 14:39 Dose: 0.125 mg Docusate Sodium (Colace) 100 mg PO TID [facility] Last Admin: 11/28/17 14:39 Dose: 100 mg Ergocalciferol (Drisdol 50,000 Intl Units Cap) 1 cap PO Q7D [facility] Last Admin: 11/23/17 18:17 Dose: 1 cap Escitalopram Oxalate (Lexapro) 10 mg PO DAILY [facility] Last Admin: 11/28/17 09:15 Dose: 10 mg Levalbuterol HCl (Xopenex) 0.63 mg IH [id number] [facility] Last Admin: 11/28/17 13:54 Dose: 0.63 mg Levothyroxine Sodium (Synthroid) 100 mcg PO DAILY [facility] Last Admin: 11/28/17 09:16 Dose: 100 mcg Morphine Sulfate (Morphine) 2 mg IVP Q6H PRN PRN Reason: Pain, moderate (4-7) Last Admin: 11/28/17 09:23 Dose: 2 mg Ondansetron HCl (Zofran Inj) 4 mg IVP Q6H PRN PRN Reason: Nausea/Vomiting Pantoprazole Sodium (Protonix Ec Tab) 40 mg PO DAILY [facility] Last Admin: 11/28/17 09:15 Dose: 40 mg Polyethylene Glycol (Miralax) 17 gm PO TID [facility] Last Admin: 11/28/17 14:39 Dose: 17 gm Rivaroxaban (Xarelto) 20 mg PO DAILY [facility]; Protocol Last Admin: 11/28/17 09:16 Dose: 20 mg Tiotropium [place] (Spiriva) 18 mcg IH DAILY [facility] Last Admin: 11/28/17 09:16 Dose: 18 mcg - Labs Labs: 11/26/17 05:30 11/26/17 05:30 PT 11.4 SECONDS (9.4-12.5) 11/23/17 13:15 INR 0.99 11/23/17 13:15 APTT 25.2 Seconds (25.1-36.5) 11/23/17 13:15 - Head Exam Head Exam: ATRAUMATIC - Eye Exam Eye Exam: Normal appearance - ENT Exam ENT Exam: Mucous Membranes Dry - Respiratory Exam Respiratory Exam: NORMAL BREATHING PATTERN - Cardiovascular Exam Cardiovascular Exam: +S1, +S2 - GI/Abdominal Exam GI & Abdominal Exam: Normal Bowel Sounds Assessment and Plan (1) Debility Assessment & Plan: secondary to malignancy recent brain mets and whole brain radiotherapy would benefit from subacute rehab during initial outpatient chemotherapy as patient is alone most of the time at home Status: Acute (2) Anemia Assessment & Plan: chronic disease from malignancy and recent radiation Status: Acute (3) Small cell lung cancer Assessment & Plan: stage IV - progressive disease outpatient salvage chemotherapy s/p WBRT for brain mets LN and lung mets Status: Acute
--- NOTE | 2017-11-28 15:17 | CP.PCM.PN ---
Subjective - Date & Time of Evaluation Date of Evaluation: 11/28/17 Time of Evaluation: 12:00 - Subjective Subjective: No complaints, daughter at bedside. Objective - Vital Signs/Intake and Output Vital Signs (last 24 hours): Temp Pulse Resp BP Pulse Ox 98.2 F 63 19 121/68 94 L 11/28/17 08:09 11/28/17 09:16 11/28/17 08:09 11/28/17 09:16 11/28/17 08:09 Intake and Output: 11/28/17 11/28/17 06:59 18:59 Intake Total 120 Output Total 50 Balance 70 - Medications Medications: Current Medications Acetaminophen (Tylenol 325mg Tab) 650 mg PO Q6H PRN PRN Reason: Fever >100.4 F Last Admin: 11/27/17 01:07 Dose: 650 mg Amiodarone HCl (Cordarone) 200 mg PO DAILY [facility] Last Admin: 11/28/17 09:16 Dose: 200 mg Atorvastatin Calcium (Lipitor) 40 mg PO DIN [facility] Last Admin: 11/27/17 18:30 Dose: 40 mg Benzonatate (Tessalon Perles) 200 mg PO TID [facility] Last Admin: 11/28/17 14:39 Dose: 200 mg Cholecalciferol (Vitamin D) 2,000 intlu PO DAILY [facility] Last Admin: 11/28/17 09:16 Dose: 2,000 intlu Clonazepam (Klonopin) 0.5 mg PO DAILY PRN; Protocol PRN Reason: Anxiety Last Admin: 11/27/17 01:07 Dose: 0.5 mg Digoxin (Digoxin) 0.125 mg PO 1400 [facility] Last Admin: 11/28/17 14:39 Dose: 0.125 mg Docusate Sodium (Colace) 100 mg PO TID [facility] Last Admin: 11/28/17 14:39 Dose: 100 mg Ergocalciferol (Drisdol 50,000 Intl Units Cap) 1 cap PO Q7D [facility] Last Admin: 11/23/17 18:17 Dose: 1 cap Escitalopram Oxalate (Lexapro) 10 mg PO DAILY [facility] Last Admin: 11/28/17 09:15 Dose: 10 mg Levalbuterol HCl (Xopenex) 0.63 mg IH [id number] [facility] Last Admin: 11/28/17 13:54 Dose: 0.63 mg Levothyroxine Sodium (Synthroid) 100 mcg PO DAILY [facility] Last Admin: 11/28/17 09:16 Dose: 100 mcg Morphine Sulfate (Morphine) 2 mg IVP Q6H PRN PRN Reason: Pain, moderate (4-7) Last Admin: 11/28/17 09:23 Dose: 2 mg Ondansetron HCl (Zofran Inj) 4 mg IVP Q6H PRN PRN Reason: Nausea/Vomiting Pantoprazole Sodium (Protonix Ec Tab) 40 mg PO DAILY [facility] Last Admin: 11/28/17 09:15 Dose: 40 mg Polyethylene Glycol (Miralax) 17 gm PO TID [facility] Last Admin: 11/28/17 14:39 Dose: 17 gm Rivaroxaban (Xarelto) 20 mg PO DAILY [facility]; Protocol Last Admin: 11/28/17 09:16 Dose: 20 mg Tiotropium [place] (Spiriva) 18 mcg IH DAILY [facility] Last Admin: 11/28/17 09:16 Dose: 18 mcg - Labs Labs: 11/26/17 05:30 11/26/17 05:30 PT 11.4 SECONDS (9.4-12.5) 11/23/17 13:15 INR 0.99 11/23/17 13:15 APTT 25.2 Seconds (25.1-36.5) 11/23/17 13:15 - Head Exam Head Exam: ATRAUMATIC - Eye Exam Eye Exam: Normal appearance - ENT Exam ENT Exam: Mucous Membranes Dry - Respiratory Exam Respiratory Exam: NORMAL BREATHING PATTERN - Cardiovascular Exam Cardiovascular Exam: +S1, +S2 - GI/Abdominal Exam GI & Abdominal Exam: Normal Bowel Sounds Assessment and Plan (1) Debility Assessment & Plan: secondary to malignancy recent brain mets and whole brain radiotherapy agreeable to subacute rehab during initial outpatient chemotherapy Status: Acute (2) Anemia Assessment & Plan: chronic disease from malignancy and recent radiation Status: Acute (3) Small cell lung cancer Assessment & Plan: stage IV - progressive disease outpatient salvage chemotherapy s/p WBRT for brain mets LN and lung mets Status: Acute
--- NOTE | 2017-11-28 15:54 | CP.PCM.PN ---
Subjective - Date & Time of Evaluation Date of Evaluation: 11/28/17 Time of Evaluation: 15:50 - Subjective Subjective: Patient seen and examined with Dr. Toscano. Patient denies any significant pain R ankle: Splint and dressings removed. Mild swelling. Ecchymosis noted. No pain with passive dorsi and plantar flexion. Calf and thigh are soft and non-tender to palpation. Right non displaced lateral malleolus fracture At this time patient can be converted to a CAM walker Patient can follow up as an outpatient Objective - Vital Signs/Intake and Output Vital Signs (last 24 hours): Temp Pulse Resp BP Pulse Ox 98.2 F 63 19 121/68 94 L 11/28/17 08:09 11/28/17 09:16 11/28/17 08:09 11/28/17 09:16 11/28/17 08:09 Intake and Output: 11/28/17 11/28/17 06:59 18:59 Intake Total 120 Output Total 50 Balance 70 - Medications Medications: Current Medications Acetaminophen (Tylenol 325mg Tab) 650 mg PO Q6H PRN PRN Reason: Fever >100.4 F Last Admin: 11/27/17 01:07 Dose: 650 mg Amiodarone HCl (Cordarone) 200 mg PO DAILY [facility] Last Admin: 11/28/17 09:16 Dose: 200 mg Atorvastatin Calcium (Lipitor) 40 mg PO DIN [facility] Last Admin: 11/27/17 18:30 Dose: 40 mg Benzonatate (Tessalon Perles) 200 mg PO TID [facility] Last Admin: 11/28/17 14:39 Dose: 200 mg Cholecalciferol (Vitamin D) 2,000 intlu PO DAILY [facility] Last Admin: 11/28/17 09:16 Dose: 2,000 intlu Clonazepam (Klonopin) 0.5 mg PO DAILY PRN; Protocol PRN Reason: Anxiety Last Admin: 11/27/17 01:07 Dose: 0.5 mg Digoxin (Digoxin) 0.125 mg PO 1400 [facility] Last Admin: 11/28/17 14:39 Dose: 0.125 mg Docusate Sodium (Colace) 100 mg PO TID [facility] Last Admin: 11/28/17 14:39 Dose: 100 mg Ergocalciferol (Drisdol 50,000 Intl Units Cap) 1 cap PO Q7D [facility] Last Admin: 11/23/17 18:17 Dose: 1 cap Escitalopram Oxalate (Lexapro) 10 mg PO DAILY [facility] Last Admin: 11/28/17 09:15 Dose: 10 mg Levalbuterol HCl (Xopenex) 0.63 mg IH [id number] [facility] Last Admin: 11/28/17 13:54 Dose: 0.63 mg Levothyroxine Sodium (Synthroid) 100 mcg PO DAILY [facility] Last Admin: 11/28/17 09:16 Dose: 100 mcg Morphine Sulfate (Morphine) 2 mg IVP Q6H PRN PRN Reason: Pain, moderate (4-7) Last Admin: 11/28/17 09:23 Dose: 2 mg Ondansetron HCl (Zofran Inj) 4 mg IVP Q6H PRN PRN Reason: Nausea/Vomiting Pantoprazole Sodium (Protonix Ec Tab) 40 mg PO DAILY [facility] Last Admin: 11/28/17 09:15 Dose: 40 mg Polyethylene Glycol (Miralax) 17 gm PO TID [facility] Last Admin: 11/28/17 14:39 Dose: 17 gm Rivaroxaban (Xarelto) 20 mg PO DAILY [facility]; Protocol Last Admin: 11/28/17 09:16 Dose: 20 mg Tiotropium [place] (Spiriva) 18 mcg IH DAILY [facility] Last Admin: 11/28/17 09:16 Dose: 18 mcg - Labs Labs: 11/26/17 05:30 11/26/17 05:30 PT 11.4 SECONDS (9.4-12.5) 11/23/17 13:15 INR 0.99 11/23/17 13:15 APTT 25.2 Seconds (25.1-36.5) 11/23/17 13:15
--- NOTE | 2017-11-28 22:04 | PN ---
DATE: 11/28/2017 SUBJECTIVE: The patient is seen lying in the bed in room 360, bed 1. Overnight nurse's notes were reviewed. The patient slept well without any adverse reaction noted. The patient was noticed to be in the bed most of the time with right leg lower extremity soft cast and dressing and Julio C wrap noted. PHYSICAL EXAMINATION: VITAL SIGNS: T-max 98.2, pulse 69, blood pressure 121/68, respiration 19, O2 sat 92-94-95-97%. INTAKE/OUTPUT: Intake 720, output 2100 yesterday. HEAD: Normocephalic, atraumatic. HEENT examination shows positive alopecia. Pinkish pale conjunctivae. Dry oral mucosa. No neck rigidity. CHEST: Kyphosis. Positive upper chest Port-A-Cath. Positive lung examination. Positive rhonchi, upper lung ellis, right more than the left. CARDIOVASCULAR: S1, S2, regular rhythm. Questionable soft systolic murmur in left sternal border, left second intercostal space, right second intercostal space. ABDOMEN: Soft. Positive bowel sounds. No hepatosplenomegaly noted. GENITALIA: Female. RECTAL: Deferred. EXTREMITIES: Shows positive right lower extremity soft cast, positive Julio C wrap. Decreased range of motion of the right lower extremity. Left lower extremity shows positive SCDs. MUSCULOSKELETAL: Examination shows a body mass index of 28.7. NEUROLOGIC: The patient is alert, awake, responsive, is able to move upper and lower extremity except the right lower extremity without assistance. Gait examination could not be tested. DIAGNOSTICS: All diagnostics from admission and hospitalization were reviewed. The patient was seen by the physical therapist. Their recommendations were noted. The patient is nonweightbearing to right lower extremity. The patient was seen by physical therapist, recommending subacute rehab. The patient was seen by the [facility]. The patient's case referred for discharge planning to subacute rehab. Awaiting acceptance of the patient. The patient's case referred to Palliative Care, Ericka Acuna. Palliative nurse met with the patient and the patient's family to discuss Advance Care planning. The patient is completely understanding her medical condition. The patient wishes to continue treatment of her malignancy, but does not want dialysis. Does not want intubation. Does not want resuscitation. Does not want permanent feeding tube. POLST directive explained to the patient by the palliative care nurses. POLST DNR/DNI completed. The patient's daughter who was present during this entire conversation with the palliative care nurse. The patient's daughter is in agreement with the mother's wishes. The patient's son was also present during the discussion with the palliative care nurse. The patient's daughter and the son has been appointed as Health Care Surrogates. At this time, the patient was made POLST DNR/DNI. The patient will be referred to [facility] for subacute rehab placement. The patient was seen by Hematology/Oncology. Their recommendations noted. IMPRESSION AND PLAN: 1. Status post fall. 2. Deconditioning secondary to the right ankle lateral malleolus fracture. 3. Right ankle nondisplaced lateral malleolus fracture. 4. Gait dysfunction. 5. 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 6. Bradycardia. 7. Hypertension. 8. Hypoxemia. 9. Anemia of malignancy in normocytic anemia with granulocytosis. 10. Elevated lactate dehydrogenase. 11. Microscopic hematuria, pyuria, bacteriuria. 12. Cervical spine degenerative disc disease with foramen stenosis. 13. Pretracheal soft tissue adenopathy. 14. Right-sided lung mass with right hilar mass. 15. Fecal retention, fecal stasis, constipation and fecalization of the small bowel. 16. Constipation. PLAN: At this time, as mentioned above, the patient and the patient's family have met with the palliative care nurse. The patient has been made POLST DNR/DNI with the patient's daughter and son has been assigned as the healthcare surrogates. The patient's case referred to the [facility] for subacute rehab placement. Recommended by physical therapy. The patient is to be continued on following medications. Colace 100 mg three times a day, amiodarone 200 mg daily, digoxin 0.125 daily, Drisdol 50,000 units weekly, Klonopin 0.5 mg daily p.r.n., Lexapro 10 mg daily, Lipitor 40 mg daily, MiraLax 17 g three times a day, morphine 2 mg IV every 6 hours p.r.n., Protonix 40 mg daily, Spiriva 18 mcg daily, Synthroid 100 mcg daily, Tessalon Perles 200 three times a day, Tylenol 650 mg p.r.n., vitamin D3 2000 international units daily, Xarelto 20 mg daily, Xopenex nebulizer 0.63 mg every 6 hours, Zofran 4 mg IV every 6 hours p.r.n. The patient has been ordered incentive spirometry, oxygen 2 liters continuous. At present, the patient is awaiting for discharge to subacute rehab of the patient and the family's choice. The patient's overall prognosis is guarded to poor. The patient and the patient's children and the family aware of above. Dictated and electronically signed, not read. Loki Keyes MD
[2017-11-29] MEDS: Morphine 2 mg/ml ISec IVP PRN ×2 (04:04→15:35)
[2017-11-29] MEDS: Levalbuterol 0.63 MG/3 ML Inhal Soln UD IH SCH ×5 (04:10→20:29)
[2017-11-29] MEDS: POLYETHYLENE GLYCOL 3350 17 GM/Dose PACKET PO SCH ×3 (09:26→17:24)
[2017-11-29] MEDS: Levothyroxine 100 MCG TAB PO SCH (09:31)
[2017-11-29] MEDS: Cholecalciferol 1,000 INTLU TAB PO SCH (09:31)
[2017-11-29] MEDS: Pantoprazole 40 mg EC Tab PO SCH (09:31)
[2017-11-29] MEDS: Tiotropium 18 mcg Cap For Inhalation IH SCH (09:31)
--- NOTE | 2017-11-29 14:31 | PN ---
DATE: 11/29/2017 LOCATION: The patient is seen in room 360, bed 1. SUBJECTIVE: Overnight nurse's notes were reviewed. The patient was found to be alert, awake, oriented x2 to 3. The patient does not appear to be in any distress. PHYSICAL EXAMINATION: VITAL SIGNS: T-max 98.2, heart rate 77, blood pressure 114/70, O2 sat ranging between 90 and 94. HEENT: Head examination; normocephalic, atraumatic. Positive alopecia noted. Pinkish pale conjunctiva noted. Dry oral mucosa. NECK: No neck rigidity. CHEST: Kyphosis. Positive upper chest Port-A-Cath noted. LUNGS: Shows positive rhonchi, right more than the left. CARDIOVASCULAR: Shows S1, S2, regular rhythm. ABDOMEN: Soft. Positive bowel sound. GENITALIA: Female. Positive Russo catheter. EXTREMITIES: Shows positive right lower extremity soft cast and Julio C wrap. Left lower extremity shows no pitting edema. Positive SCDs. MUSCULOSKELETAL: Shows as per the body mass index. DIAGNOSTICS: None from today. The patient seen by Orthopedics and Hematology/Oncology. The patient seen by palliative care nurse. The patient's recommendation by Hematology/Oncology. An Orthopedic recommendations noted. Orthopedic recommends use of Cam walker. The patient was seen by the physical therapist. Recommendation is rehab. The patient was seen by the palliative care nurses. The patient's POLST DNR/DNI is completed. The patient is made DNR/DNI at present. IMPRESSION AND PLAN: 1. Acute right ankle lateral malleolar fracture with diffuse soft tissue swelling. 2. Gait dysfunction. 3. Deconditioning. 4. Status post fall. 5. Stage IV small cell lung carcinoma with multiple ring-enhancing hemorrhagic metastatic lesion to the brain with vasogenic edema and midline shift. 6. Anemia of chronic disease secondary to malignancy. 7. History of paroxysmal atrial fibrillation. 8. Hypothyroidism. 9. Anxiety disorder with upper extremity tremor. 10. Depression. 11. Constipation. 12. Fecal stasis and fecal retention. 13. Questionable syncope. 14. Hypoxemia. 15. History of nicotine dependence and emphysema. 16. Right lung small cell carcinoma with multiple brain metastasis. 17. Status post chemotherapy and status post whole-brain radiation treatment. As mentioned above, the patient is now made POLST DNR/DNI. Order has been entered. The patient was seen by Orthopedics. Orthopedics has recommended Cam walker. The patient was seen by Hematology/Oncology. Their recommendations noted. All of the above details were discussed and explained to the patient at length and all questions concerned answered. The patient's case referred to [facility] for discharge planning to rehab in the vicinity of the patient's daughter's resident in [facility]. The patient is to be continued on the therapeutic intervention as per the MAR of today, which was reviewed. Prognosis guarded to poor due to multiple complicated comorbidity and acute decline in the medical condition and due to advanced and progressive lung carcinoma. The patient's condition, diagnosis, prognosis has been discussed with the patient and the patient's son on multiple hospitalization during this admission and last previous admission. At present, the patient is awaiting for discharge to subacute rehab when accepted. Dictated and electronically signed, not read. Loki Keyes MD
[2017-11-29] MEDS: Digoxin 125 mcg (0.125 mg) Tab PO SCH (15:28)
[2017-11-29 15:32] VITALS: PULSE 77
[2017-11-29 16:32] VITALS: BP 139/84; PULSE 87; TEMP 99.4; O2SAT 93
== END 2017-11-29 20:50 | DRG 563 ==
LOC: ED 12:06 → ERH 15:32 → 3RNO 17:49
PROVIDERS: ADMIT Internal Medicine; ATTEND Internal Medicine
PROC: 3E0F7GC Introduction of Other Therapeutic Substance into Respiratory Tract, Via Natural or Artificial Opening (ICD-10-PCS; principal; 2017-11-23)
DX: S82.64XA Nondisplaced fracture of lateral malleolus of right fibula, initial encounter for closed fracture (principal); C79.31 Secondary malignant neoplasm of brain; C34.91 Malignant neoplasm of unspecified part of right bronchus or lung; D63.0 Anemia in neoplastic disease; I48.0 Paroxysmal atrial fibrillation; E03.9 Hypothyroidism, unspecified; J44.9 Chronic obstructive pulmonary disease, unspecified; I10 Essential (primary) hypertension; E78.5 Hyperlipidemia, unspecified; R31.29 Other microscopic hematuria; M50.321 Other cervical disc degeneration at C4-C5 level; M48.02 Spinal stenosis, cervical region; E55.9 Vitamin D deficiency, unspecified; K59.00 Constipation, unspecified; R53.81 Other malaise; F41.9 Anxiety disorder, unspecified; R09.02 Hypoxemia; Z66 Do not resuscitate; Z79.01 Long term (current) use of anticoagulants; W01.0XXA Fall on same level from slipping, tripping and stumbling without subsequent striking against object, initial encounter; Z92.3 Personal history of irradiation; Y93.01 Activity, walking, marching and hiking; Y92.009 Unspecified place in unspecified non-institutional (private) residence as the place of occurrence of the external cause; Z87.891 Personal history of nicotine dependence